=== PATIENT | female | born 1980 | race Caucasian/White ===

== ENCOUNTER 2020-07-29 14:07 | Emergency (ER) | payer MEDICAID, SELFPAY ==
[2020-07-29 14:19] VITALS: BP 113/76; PULSE 88; RESP 18; TEMP 36.7; O2SAT 97; BMI 24.7
[2020-07-29 14:32] VITALS: BP 113/76; PULSE 88; RESP 18; TEMP 36.7; O2SAT 97
--- NOTE | 2020-07-29 14:37 | PC.NURSE ---
RN called [facility] to verify medications. [facility] does not have any medications on record for pt.
--- NOTE | 2020-07-29 14:47 | PC.NURSE ---
Son in w/ pt
--- NOTE | 2020-07-29 14:56 | ED_ITS ---
HPI - Psych General Chief Complaint: Psychiatric Symptoms Stated Complaint: CRISIS Time Seen by Provider: 07/29/20 14:25 Source: EMS Mode of arrival: EMS Limitations: no limitations History of Present Illness HPI Narrative: 40-year-old female with a past medical history of bipolar disease here with erratic behavior. The history is limited from the patient and most of the history is obtained from her son Rm. He tells me the patient has been living in [place] until about 3 days ago when she showed up at his house. Tells me he lives with his sister and his grandmother. His mom showed up to tell him that she was visiting. While her stay over the last 3 days she has had very erratic behavior, hearing voices and talking to herself. She has made homicidal threats towards the grandmother. No suicidal thoughts. He tells me that she has not been taking her medication as she run out. Spoke to patient and she tells me she is here for medication refill. She tells me that she is visiting here from [place] and she realized that her Zyprexa and Depakote were . She called her pharmacy but they would not refill her medications. She is here seeking refills. She denies SI, HI, hallucinations. Denies substance use. No physical complaints. Related Data Home Medications Medication Instructions Recorded Confirmed divalproex [Depakote] 250 mg PO BID 07/29/20 07/29/20 multivitamin 1 tab PO DAILY 07/29/20 07/29/20 olanzapine 10 mg PO DAILY 07/29/20 07/29/20 Allergies Allergy/AdvReac Type Severity Reaction Status Date / Time No Known Allergies Allergy Verified 07/29/20 14:35 [No Known Allergies*] Review of Systems Review of Systems: Yes all other systems are reviewed and are negative Constitutional: Constitutional: Reports no additional constitutional complaints, Denies body ache(s), Denies chills, Denies fever(s), Denies headache(s) and Denies weakness Eyes: Eyes: Reports no additional eye complaints and Denies change in vision ENT: Reports system reviewed and no additional complaints, except as documented, Denies dizziness, Denies headache(s), Denies nasal congestion, Denies nasal discharge and Denies neck pain Cardiovascular: Cardiovascular: Reports no additional cardiovascular complaints, Denies chest pain, Denies leg edema and Denies dyspnea Respiratory: Respiratory: Reports no additional respiratory complaints, Denies cough and Denies dyspnea Gastrointestinal: Gastrointestinal: Reports no additional gastrointestinal complaints, Denies abdominal pain, Denies diarrhea, Denies nausea and Denies vomiting Genitourinary: Genitourinary: Reports no additional female genitourinary complaints and Denies urinary incontinence Musculoskeletal: Musculoskeletal: Reports no additional musculoskeletal complaints, Denies back pain, Denies arthralgias, Denies joint swelling, Denies neck pain, Denies numbness and Denies tingling Integumentary/Breasts: Skin/Breast: Reports system reviewed and no additional complaints, except as docu and Denies rash Neurologic: Reports system reviewed and no additional complaints, except as documented, Denies Abnormal speech present, Denies dizziness, Denies headache(s), Denies numbness, Denies tingling and Denies weakness Psychiatric: Psychiatric: Denies anxiety, Denies depression, Denies hallucinations, Denies homicidal ideation and Denies suicidal ideation PMF Past Medical History Attestation statement: The following information was validated with the patient. Source: old records reviewed and nursing notes reviewed Medical History (Updated 07/29/20 @ 19:28 by Joya Lopez NP) Bipolar 1 disorder Social History Social History Advance Directives: No Advance Directives Information Provided: Yes Physical Exam Vital Signs: Vital Signs: Last Vital Signs Temp 98.8 F 07/29/20 17:50 Pulse 66 07/29/20 17:50 Resp 20 07/29/20 17:50 BP 120/72 07/29/20 17:50 Pulse Ox 97 07/29/20 17:50 Body Mass Index 24.7 Const: General: cooperative, healthy appearing, comfortable and no acute distress Orientation/consciousness: patient oriented x3 Limitations: no limitations HENMT: Head: Yes normal to inspection Ears: hearing grossly normal bilaterally General nose exam: Normal external nose present Face and sinus: Yes normal facial exam Mouth: Normal oral and palatal mucosa present Throat: Yes posterior oropharynx normal Eyes: General: appearance normal, both eyes and all related structures Pupils: Equal, round and reactive pupils present Neck: Neck: Yes normal visual inspection Chest: Chest palpation & inspection: normal inspection of the chest Resp: Effort & Inspection: normal respiratory effort Auscultation: clear to auscultation bilaterally Cardio: Rate: regular rate Rhythm: regular rhythm Peripheral pulses: Peripheral pulses 2+ throughout GI: Inspection: Yes normal to inspection Palpation (GI): Soft to palpation and nontender Auscultation: normal bowel sounds Back/Spine/Pelvis: Thoracic/Lumbar Spine: thoracic and lumbar spine normal to inspection Skin: General skin exam: no rashes or lesions noted Neuro: General: patient oriented x3, no focal motor deficits and normal sensation to monofilament Cranial nerves: Yes Equal, round and reactive pupils present Cognition (Neuro): normal cognition Speech: No Abnormal sp eech present Gait exam (Neuro): Normal gait present Motor exam (neuro): 5/5 motor strength present throughout Extrem: General: Yes normal to inspection Psych: Appearance: disheveled Mental Status: mental status grossly normal Speech and movement: Other speech and movement exam findings present (Psych) ([place]) Affect: normal affect Attitude: cooperative Course Course Course Narrative: 40-year-old female with a past medical history of bipolar disease here with erratic behavior per family, homicidal threats towards family, hearing voices and talking to herself. Patient herself has no complaints and is here seeking medication refill. She tells me that she has been taking Zyprexa and Depakote however realize that her medications are and is here seeking a refill as her physician is in [place] and she is having difficulty refilling her medications. No SI, HI, hallucinations or substance use. No p hysical complaints. Will need labs including Depakote level, drug screen, care team evaluation. No concern for acute ingestion or trauma. 1920-patient seen by care team. Plan to restart patient's medications, observation tonight, reassessment in the morning. Patient is here voluntarily. 2100-sign out to night team pending above. MDM - Psych Medical Records Attestation: I reviewed the patient's medical records. Lab Data Attestation: I reviewed the patient's lab results. Result diagrams: 07/29/20 16:30 07/29/20 16:30 Labs: Lab Results 07/29/20 07/29/20 07/29/20 Range/Units 16:05 16:30 16:30 WBC 10.8 (4.8-10.8) X10*3/uL RBC 4.23 (4.20-5.50) X10*6/uL Hgb 12.6 (12.0-16.0) g/dl Hct 38.2 (37-47) % MCV 90.3 (80-98) fL MCH 29.8 (27.0-33.0) pg MCHC 33.0 (31.0-35.0) g/dl RDW 15.2 (11.0-16.0) % Plt Count 212 (160-400) X10*3/uL MPV 11.6 (9.4-12.3) fL Immature Gran % (Auto) 0.2 (0.0-0.4) % Neut % (Auto) 70.3 (45-73) % Lymph % (Auto) 18.5 L (20-40) % Early % (Auto) 7.6 (2-11) % Eos % (Auto) 3.0 (0-4) % Baso % (Auto) 0.4 (0-2) % Lymph # (Auto) 2.0 (1.2-4.9) X10*3/uL Early # (Auto) 0.8 (0.1-1.2) X10*3/uL Eos # (Auto) 0.3 (0.0-0.4) X10*3/uL Baso # (Auto) 0.0 (0.0-0.2) X10*3/uL Abs Immat Gran (auto) 0.02 (0.00-0.03) X10*3/uL Absolute Neuts (auto) 7.6 (2.0-8.3) X10*3/uL Absolute Nucleated RBC 0.000 (0.0-0.012) X10*3/uL Nucleated RBC % (auto) 0.0 (0.0-0.2) /100WBC Sodium 139 (135-145) mmol/L Potassium 4.1 (3.3-5.1) mmol/L Chloride 105 (96-108) mmol/L Carbon Dioxide 23 (22-29) mmol/L Anion Gap 15 (12-20) BUN 12 (9-16) mg/dL Creatinine 0.76 (0.5-1.4) mg/dL Estim Creat Clear Calc 86.4 Estimated GFR > 60 Random Glucose 81 (60-115) mg/dL Calcium 9.4 (8.4-10.2) mg/dL Total Bilirubin 0.4 (0.0-1.0) mg/dL Direct Bilirubin < 0.2 (0.0-0.5) mg/dL AST 20 (5-31) U/L ALT 22 (0-31) U/L Alkaline Phosphatase 53 (39-117) U/L Total Protein 6.5 (6.5-8.0) g/dL Albumin 4.0 (3.5-5.0) g/dL Salicylates (15-30) mg/dL Urine Opiates Screen Not Detected (Not Detect) Acetaminophen (<30) mcg/mL Ur Barbiturates Screen Not Detected (Not Detect) Valproic Acid 14.9 L (50.0-100.0) mcg/mL Ur Phencyclidine Scrn Not Detected (Not Detect) Ur Amphetamines Screen Not Detected (Not Detect) U Benzodiazepines Scrn Not Detected (Not Detect) Urine Cocaine Screen Not Detected (Not Detect) U Marijuana (THC) Screen POSITIVE H (Not Detect) Ethyl Alcohol mg/dL COVID-19 (CONCEPCION) (Negative) COVID-19 Clin Com 07/29/20 07/29/20 07/29/20 Range/Units 16:30 16:30 16:32 WBC (4.8-10.8) X10*3/uL RBC (4.20-5.50) X10*6/uL Hgb (12.0-16.0) g/dl Hct (37-47) % MCV (80-98) fL MCH (27.0-33.0) pg MCHC (31.0-35.0) g/dl RDW (11.0-16.0) % Plt Count (160-400) X10*3/uL MPV (9.4-12.3) fL Immature Gran % (Auto) (0.0-0.4) % Neut % (Auto) (45-73) % Lymph % (Auto) (20-40) % Early % (Auto) (2-11) % Eos % (Auto) (0-4) % Baso % (Auto) (0-2) % Lymph # (Auto) (1.2-4.9) X10*3/uL Early # (Auto) (0.1-1.2) X10*3/uL Eos # (Auto) (0.0-0.4) X10*3/uL Baso # (Auto) (0.0-0.2) X10*3/uL Abs Immat Gran (auto) (0.00-0.03) X10*3/uL Absolute Neuts (auto) (2.0-8.3) X10*3/uL Absolute Nucleated RBC (0.0-0.012) X10*3/uL Nucleated RBC % (auto) (0.0-0.2) /100WBC Sodium (135-145) mmol/L Potassium (3.3-5.1) mmol/L Chloride (96-108) mmol/L Carbon Dioxide (22-29) mmol/L Anion Gap (12-20) BUN (9-16) mg/dL Creatinine (0.5-1.4) mg/dL Estim Creat Clear Calc Estimated GFR Random Glucose (60-115) mg/dL Calcium (8.4-10.2) mg/dL Total Bilirubin (0.0-1.0) mg/dL Direct Bilirubin (0.0-0.5) mg/dL AST (5-31) U/L ALT (0-31) U/L Alkaline Phosphatase (39-117) U/L Total Protein (6.5-8.0) g/dL Albumin (3.5-5.0) g/dL Salicylates < 5.0 L (15-30) mg/dL Urine Opiates Screen (Not Detect) Acetaminophen < 1 (<30) mcg/mL Ur Barbiturates Screen (Not Detect) Valproic Acid (50.0-100.0) mcg/mL Ur Phencyclidine Scrn (Not Detect) Ur Amphetamines Screen (Not Detect) U Benzodiazepines Scrn (Not Detect) Urine Cocaine Screen (Not Detect) U Marijuana (THC) Screen (Not Detect) Ethyl Alcohol < 10 mg/dL COVID-19 (CONCEPCION) Negative (Negative) COVID-19 Clin Com See Note Discharge Plan Discharge Clinical Impression: Bipolar disorder Prescriptions: No Action multivitamin Tablet 1 tab PO DAILY RF: 0 divalproex [Depakote] 250 mg Tablet,Delayed Release (Dr/Ec) 250 mg PO BID RF: 0 olanzapine 10 mg Tablet 10 mg PO DAILY RF: 0
--- NOTE | 2020-07-29 15:29 | PC.NURSE ---
[facility] called for medication reconciliation
--- NOTE | 2020-07-29 15:48 | PC.NURSE ---
Pt resting in bed at current. No complaints at this time. Calm and cooperative.
[2020-07-29 16:37] LABS: MANUAL DIFF FLAG NO
[2020-07-29 16:40] LABS: Basophils Percent Auto 0.4 % (0-2); Eosinophils Absolute Auto 0.3 X10*3/uL (0.0-0.4); Hematocrit 38.2 % (37-47); Hemoglobin 12.6 g/dl (12.0-16.0); Imm Gran Abs Auto 0.02 X10*3/uL (0.00-0.03); Imm Gran Pct Auto 0.2 % (0.0-0.4); Lymphocytes Percent Auto 18.5 % (20-40); Mean Corpuscular Hemoglobin 29.8 pg (27.0-33.0); Mean Corpuscular Volume 90.3 fL (80-98); Mean Platelet Volume 11.6 fL (9.4-12.3); Monocytes Absolute Auto 0.8 X10*3/uL (0.1-1.2); Monocytes Percent Auto 7.6 % (2-11); Neutrophils Absolute Auto 7.6 X10*3/uL (2.0-8.3); Neutrophils Percent Auto 70.3 % (45-73); Platelet Count 212 X10*3/uL (160-400); Red Blood Count 4.23 X10*6/uL (4.20-5.50); Red Cell Distribution Width 15.2 % (11.0-16.0); White Blood Count 10.8 X10*3/uL (4.8-10.8)
[2020-07-29 16:48] LABS: Amphetamine Screen Urine Not Detected (Not Detect); Barbiturates, Urine Not Detected (Not Detect); Benzodiazepines Screen Urine Not Detected (Not Detect); Cannabinoid Screen Urine POSITIVE (Not Detect); Cocaine Screen Urine Not Detected (Not Detect); Opiate Screen Urine Not Detected (Not Detect); Phencyclidine Screen Urine Not Detected (Not Detect)
[2020-07-29 16:54] LABS: COVID-19 Test Negative (Negative)
[2020-07-29 17:00] LABS: Ethanol < 10 mg/dL
[2020-07-29 17:03] LABS: Alanine Aminotransferase 22 U/L (0-31); Alkaline Phosphatase 53 U/L (39-117); Anion Gap 15 (12-20); Aspartate Amino Transferase 20 U/L (5-31); Bilirubin Direct < 0.2 mg/dL (0.0-0.5); Bilirubin Total 0.4 mg/dL (0.0-1.0); Blood Urea Nitrogen 12 mg/dL (9-16); Calcium 9.4 mg/dL (8.4-10.2); Carbon Dioxide 23 mmol/L (22-29); Chloride 105 mmol/L (96-108); Creatinine Clr Calc Pharmacy 86.4; Estimated Glomerular Filt Rate > 60; Glucose Random 81 mg/dL (60-115); Potassium 4.1 mmol/L (3.3-5.1); Salicylate < 5.0 mg/dL (15-30); Sodium 139 mmol/L (135-145); Total Protein 6.5 g/dL (6.5-8.0)
[2020-07-29 17:04] LABS: Acetaminophen LAB < 1 mcg/mL (<30)
[2020-07-29 17:05] LABS: Valproate 14.9 mcg/mL (50.0-100.0)
[2020-07-29] MEDS: OLANZapine 10 MG TABLET PO (17:27)
--- NOTE | 2020-07-29 17:30 | PC.NURSE ---
Pt having a full on conversation with herself. VALERIE Alva notified. Zyprexa 10 MG PO (see emar). Effect pending.
[2020-07-29 17:50] VITALS: BP 120/72; PULSE 66; RESP 20; TEMP 37.1; O2SAT 97
--- NOTE | 2020-07-29 18:26 | PC.NURSE ---
CARE team meeting with pt at bedside
--- NOTE | 2020-07-29 19:22 | PC.NURSE ---
Patient in bed appears resting quietly, care team just finished assessing the patient, disposition is observation for tonight and discharge in the morning, will continue to monitor.
[2020-07-29] MEDS: Divalproex Sodium 250 MG TABLET.DR PO (20:09)
--- NOTE | 2020-07-30 07:17 | PC.NURSE ---
Report received from MAGDA Miles. Pt resting, resp unlabored.
[2020-07-30] MEDS: OLANZapine 10 MG TABLET PO (09:32)
[2020-07-30] MEDS: Multivitamin TABLET 1 TAB PO (09:32)
[2020-07-30] MEDS: Divalproex Sodium 250 MG TABLET.DR PO (09:33)
--- NOTE | 2020-07-30 09:50 | PC.NURSE ---
Pt awakened, offered breakfast- ate breakfast, but requested to have discharge postponed because she felt dizzy. Discharge paperwork reviewed w/ pt w/ aerial photograph interpreter present- pt states she is safe to be discharged and will be going to her family's house. Pt states that she can walk to the house, it is close by. Orthostatic vital signs reviewed w/ C Cardoza; pt may be discharged as ordered. Pt given fluids to drink. Pt ambulated to bathroom, gait steady, no report of dizziness when ambulating.
--- NOTE | 2020-07-30 09:56 | PC.NURSE ---
VS lying down: 96%; 72; 96/58 Sitting: p81, 94/70 Standing: p96 bp 115/70
[2020-07-30 09:58] VITALS: BP 115/70; PULSE 81; RESP 20; TEMP 36.7; O2SAT 96
== END 2020-07-30 10:00 | disposition home or self-care (01) ==
PROVIDERS: Nurse Practitioner Family; Emergency Provider Emergency Medicine
DX: F31.9 Bipolar disorder, unspecified (principal); R45.850 Homicidal ideations; R79.89 Other specified abnormal findings of blood chemistry; Z20.822 Contact with and (suspected) exposure to COVID-19; Z79.899 Other long term (current) drug therapy
CPT/HCPCS: 36415; 80048; 80076; 80143; 80164; 80179; 80307; 80320; 85025; 87635; 99285

== ENCOUNTER 2020-08-09 09:46 | Emergency (ER) | payer MEDICAID, SELFPAY ==
[2020-08-09 09:57] VITALS: BP 108/68; PULSE 70; RESP 16; TEMP 36.6; O2SAT 99; BMI 31.4
--- NOTE | 2020-08-09 10:25 | ED_ITS ---
HPI - Dental/Oral General Chief complaint: General Medical Stated complaint: dental pain Time Seen by Provider: 08/09/20 10:13 Source: patient Mode of arrival: ambulatory Limitations: no limitations History of Present Illness HPI Narrative: 40-year-old female presenting to the ED with complaints of left lower dental pain where she has a old dental fracture for the past 4-5 days worse today. Patient also requesting refill on her Depakote she reports she takes 250 mg b.i.d.. Denies any SI/HI/auditory visual hallucinations or thoughts of self injury. Reports she is taking Depakote as prescribed and last took it this morning. Denies any additional complaints or concerns at this time. MD Complaint: tooth pain Teeth map: 1. Onset (ago): day(s) (Few days worse today) Duration: worsening Severity: moderate Relieving factors: nothing Exacerbating factors: chewing, cold, heat and drinking fluids Context: history of dental caries, trauma (mechanism) (History of old fractures) and poor dental care Associated symptoms: other (Patient denies any other associated symptoms) Treatment prior to arrival: none Related Data Home Medications Medication Instructions Recorded Confirmed divalproex [Depakote] 250 mg PO BID 07/29/20 07/29/20 multivitamin 1 tab PO DAILY 07/29/20 07/29/20 olanzapine 10 mg PO DAILY 07/29/20 07/29/20 Previous Rx's Medication Instructions Recorded divalproex [Depakote] 250 mg PO BID #60 tab 08/09/20 penicillin V potassium 500 mg PO Q12H 10 Days #20 tab 08/09/20 Allergies Allergy/AdvReac Type Severity Reaction Status Date / Time No Known Allergies Allergy Verified 07/29/20 14:35 [No Known Allergies*] Review of Systems Review of Systems: Constitutional : No Fever, No Chills, No changes in PO intake, No difficulty speaking, no recent dental procedure, no heat or cold intolerance while eating, no recent face trauma, ENT/Mouth : + Dental pain, No Sore throat, No Jaw pain, No throat swelling, No swallowing difficulty, no change in voice, No facial swelling, no drooling, no trismus, no bleeding, no lacerations, no tongue swelling, gum swelling, Eyes: No Eye Pain, No periorbital Swelling Cardiovascular : No Chest Pain, No SOB Respiratory : No Cough, No Sputum, No Wheezing, No Smoke Exposure, No Dyspnea Gastrointestinal : No Nausea, No Vomiting, No Diarrhea Genitourinary : No Dysuria Musculoskeletal : No Myalgias Skin : No rash, no facial swelling or redness, Neuro : No Weakness, No Numbness, No Headache Yes all other systems are reviewed and are negative [facility] Past Medical History Attestation statement: The following information was validated with the patient. Medical History Bipolar 1 disorder Social History Social History Smoked in Last 30 Days: No Use of substances other than those prescribed or required for medical reasons: No Advance Directives: Yes Advance Directives Information Provided: No Advance Directives on File: No Physical Exam Vital Signs: Vital Signs: Last Vital Signs Temp 97.8 F 08/09/20 09:57 Pulse 70 08/09/20 09:57 Resp 16 08/09/20 09:57 BP 108/68 08/09/20 09:57 Pulse Ox 99 08/09/20 09:57 Body Mass Index 31.4 vital signs have been reviewed as normal and appeared to be correct. Blood pressure normal. Heart rate normal. Respiration rate normal. Temperature normal. Oxygen saturation normal. Appearance: Alert. Oriented X3. No acute distress. Head: Normal external exam. Normocephalic. Atraumatic. Eyes: PERRLA. EOMI. Conjunctiva and sclera normal. Eyelids normal. ENT: EAC normal. TM's Normal. Pharynx normal. Uvula midline. Moist mucous membranes. No trismus noted. No drooling noted. No muffled voice noted. Dentition: Patient with poor dentition throughout with multiple old fractured teeth with multiple dental caries. Gingival within normal limits. No fluctuance. Not consistent with peritonsillar abscess. Not consistent with dental abscess. No salivary duct obstruction noted. Neck: Normal inspection. Neck supple. FROM. No adenopathy. Thyroid Normal. No meningeal signs. No neck mass noted. Trachea midline. CVS: Normal heart rate and rhythm. Heart sound normal. No murmurs noted. Pulses normal throughout. Respiratory: No respiratory distress. Painless inspiration. Breath sounds normal. No wheezes/rales/rhonchi noted. Chest nontender. No accessory muscle usage noted or decreased air movement noted. Back: Full range of motion noted. Skin: Skin warm and dry. Normal skin color. Normal skin turgor. No rashes/lesions/lacerations noted. Extremities:Extremities exhibit normal range of motion. Extremities nontender. Neuro: Oriented X 3. No motor deficit. No sensory deficit. Reflexes normal. Course Course Course Narrative: 40-year-old female with a past medical history of bipolar disorder presenting to the ED for dental pain for the past 4 through 5 days worse today. Reports that she can follow up with her own dentist outpatient. Denies any complaints or concerns related to that. Also reports she has a refill on her Depakote she takes 250 mg b.i.d.. Reports she is taking as prescribed. Denies any SI/HI/auditory visualizations thoughts of self-injury. Therefore on exam patient has multiple dental caries/poor dentition and old dental fractures not consistent with peritonsillar abscess/pharyngeal abscess or dental abscess. Patient is tolerating her secretions well. No trismus or drooling noted. Will DC home with antibiotics and symptomatic treatment refill on Depakote and instructions to follow-up with her dentist and to return if any new or worsening symptoms to follow up with primary care provider. Patient understands agrees with this plan. [facility] - Dental/Oral Medical Records Attestation: I reviewed the patient's medical records. Discharge Plan Discharge Clinical Impression: Dental caries, Poor dentition, Medication refill Patient Disposition: Home, Self-Care Instructions: Toothache (ED), Medicine Refill (ED) Prescriptions: New penicillin V potassium 500 mg tablet 500 mg PO Q12H 10 Days Qty: 20 RF: 0 divalproex [Depakote] 250 mg tablet,delayed release (DR/EC) 250 mg PO BID Qty: 60 RF: 0 No Action multivitamin Tablet 1 tab PO DAILY RF: 0 divalproex [Depakote] 250 mg Tablet,Delayed Release (Dr/Ec) 250 mg PO BID RF: 0 olanzapine 10 mg Tablet 10 mg PO DAILY RF: 0 Referrals: Physician,Unknown [Primary Care Provider] - 2 days (your dentist) Print Language: Andorran
== END 2020-08-09 10:43 | disposition home or self-care (01) ==
PROVIDERS: Emergency Provider Emergency Medicine Emergency Medical Services
DX: K02.9 Dental caries, unspecified (principal); K08.89 Other specified disorders of teeth and supporting structures; Z76.0 Encounter for issue of repeat prescription
CPT/HCPCS: 99283

== ENCOUNTER 2020-08-13 04:08 | Emergency (ER) | payer MEDICAID, SELFPAY ==
--- NOTE | ~2020-08-13 | XR_ITS ---
EXAMINATION: XR CHEST CLINICAL INFORMATION: Cough COMPARISON: None TECHNIQUE: Frontal view of the chest was obtained. FINDINGS: Normal symmetric lung volumes. No parenchymal consolidation. No pleural effusion. No pneumothorax. Cardiomediastinal silhouette and pulmonary vascularity are within normal limits. No acute osseous abnormalities. XR/XR chest 1V IMPRESSION: No focal consolidation. Departmental radiographs would be more sensitive in detecting milder degrees of pneumonitis or small infiltrates.
[2020-08-13 04:25] VITALS: BP 127/87; PULSE 66; RESP 18; TEMP 36.6; O2SAT 100; BMI 31.9
[2020-08-13 04:34] VITALS: BP 127/87; PULSE 66; RESP 18; TEMP 36.6; O2SAT 100; BMI 31.9
[2020-08-13 04:43] VITALS: BP 123/76; PULSE 65
--- NOTE | 2020-08-13 04:43 | ECG_ITS ---
Test Reason : DIZZINESS Blood Pressure : / mmHG Vent. Rate : 063 BPM Atrial Rate : 063 BPM P-R Int : 152 ms QRS Dur : 074 ms QT Int : 414 ms P-R-T Axes : 023 043 023 degrees QTc Int : 423 ms Normal sinus rhythm Normal ECG No previous ECGs available Referred By: Chrissy Paulson Electronically Signed By:VALENCIA JALLOH
[2020-08-13 05:11] LABS: MANUAL DIFF FLAG NO
[2020-08-13 05:12] VITALS: BP 121/86; PULSE 72
[2020-08-13 05:12] LABS: Basophils Absolute Auto 0.1 X10*3/uL (0.0-0.2); Basophils Percent Auto 0.5 % (0-2); Eosinophils Absolute Auto 0.5 X10*3/uL (0.0-0.4); Eosinophils Percent Auto 3.2 % (0-4); Hematocrit 36.7 % (37-47); Imm Gran Abs Auto 0.04 X10*3/uL (0.00-0.03); Imm Gran Pct Auto 0.3 % (0.0-0.4); Lymphocytes Absolute Auto 3.6 X10*3/uL (1.2-4.9); Lymphocytes Percent Auto 24.5 % (20-40); Mean Corpuscular HGB Conc 32.7 g/dl (31.0-35.0); Mean Corpuscular Hemoglobin 29.6 pg (27.0-33.0); Mean Corpuscular Volume 90.6 fL (80-98); Mean Platelet Volume 10.5 fL (9.4-12.3); Monocytes Percent Auto 6.9 % (2-11); Neutrophils Absolute Auto 9.6 X10*3/uL (2.0-8.3); Neutrophils Percent Auto 64.6 % (45-73); Platelet Count 245 X10*3/uL (160-400); Red Blood Count 4.05 X10*6/uL (4.20-5.50); Red Cell Distribution Width 15.4 % (11.0-16.0); White Blood Count 14.8 X10*3/uL (4.8-10.8)
[2020-08-13 05:13] VITALS: BP 132/84; PULSE 76
[2020-08-13 05:25] LABS: Glucose, Whole Blood 92 mg/dL (60-115)
[2020-08-13 05:34] LABS: Ethanol < 10 mg/dL
[2020-08-13 05:40] LABS: Glucose Urine UA NEG (NEG); Leukocyte Esterase Urine TRACE (NEG); Nitrite Urine NEG (NEG); UACC Culture Trigger YES; Urine Blood 2+ (NEG); Urine Ketones NEG (NEG); Urine Protein NEG (NEG-TRACE)
[2020-08-13 05:40] LABS: Alanine Aminotransferase 27 U/L (0-31); Albumin Level 4.1 g/dL (3.5-5.0); Alkaline Phosphatase 61 U/L (39-117); Anion Gap 15 (12-20); Aspartate Amino Transferase 25 U/L (5-31); Bilirubin Total < 0.2 mg/dL (0.0-1.0); Blood Urea Nitrogen 14 mg/dL (9-16); Calcium 8.6 mg/dL (8.4-10.2); Carbon Dioxide 23 mmol/L (22-29); Chloride 106 mmol/L (96-108); Creatinine Clr Calc Pharmacy 101.8; Estimated Glomerular Filt Rate > 60; Glucose Random 88 mg/dL (60-115); Magnesium 2.1 mg/dL (1.6-2.6); Potassium 3.9 mmol/L (3.3-5.1); Sodium 140 mmol/L (135-145); Total Protein 6.9 g/dL (6.5-8.0)
[2020-08-13 05:41] LABS: Appearance Urine HAZY; Color Urine YELLOW
[2020-08-13 05:42] LABS: Troponin-I High Sensitivity < 3.5 ng/L (<3.5-17.0)
--- NOTE | 2020-08-13 05:47 | ED_ITS ---
HPI - Dizziness General Chief Complaint: Dizziness Stated Complaint: dizziness with ambulation Time Seen by Provider: 08/13/20 04:43 Source: patient Mode of arrival: EMS History of Present Illness HPI Narrative: This is a 40-year-old female who comes in via EMS after she called for dizziness wall walking. Patient otherwise denies fevers, chills, chest pain/palpitations, nausea, vomiting, abdominal discomfort, or diarrhea. However, she does describe some urinary burning. She endorses that she does use cocaine but last use yesterday. Related Data Home Medications Medication Instructions Recorded Confirmed divalproex [Depakote] 250 mg PO BID 07/29/20 07/29/20 multivitamin 1 tab PO DAILY 07/29/20 07/29/20 olanzapine 10 mg PO DAILY 07/29/20 07/29/20 Previous Rx's Medication Instructions Recorded divalproex [Depakote] 250 mg PO BID #60 tab 08/09/20 penicillin V potassium 500 mg PO Q12H 10 Days #20 tab 08/09/20 ciprofloxacin HCl [Cipro] 500 mg PO Q12H 7 Days #14 tab 08/13/20 Allergies Allergy/AdvReac Type Severity Reaction Status Date / Time No Known Allergies Allergy Verified 07/29/20 14:35 [No Known Allergies*] Review of Systems Review of Systems: Pertinent positives and negatives as stated in HPI 10 point review of systems is otherwise negative. PMFSH Past Medical History Source: nursing notes reviewed Medical History Bipolar 1 disorder Social History Social History Advance Directives: No Physical Exam Vital Signs: Vital Signs: Last Vital Signs Temp 97.8 F 08/13/20 04:34 Pulse 81 08/13/20 06:18 Resp 20 08/13/20 06:18 BP 114/65 08/13/20 06:18 Pulse Ox 99 08/13/20 06:18 Body Mass Index 31.9 VITAL SIGNS: Reviewed. GENERAL: Well developed, well nourished, in no acute distress. HEAD: Normocephalic/atraumatic NOSE: Nares patent bilateral OROPHARYNX: no oral lesions noted, posterior pharynx clear NECK: Supple, no adenopathy LUNGS: Normal breath sounds. No adventitious sounds or accessory muscle use. SpO2<99> CARDIOVASCULAR: Regular rate and rhythm without noted murmurs ABDOMEN: Soft, non-tender, non-distended with bowel sounds. NEUROLOGIC: Alert and oriented x 4, no facial asymmetry, no pronator drift, cranial nerves 2-12 are grossly intact, cerebellar testing is within normal limits. Course Course Course Narrative: This is a 40-year-old female with history and clinical presentation suggestive of possible substance use related dizziness but will rule out infection/anemia, arrhythmia. On review of all investigations there is a mild leukocytosis however this is not in conjunction with a left shift, but UA is positive for white blood cells and trace leukocyte esterase. Patient was given initial antibiotics here in the emergency department and then discharged with remaining script. On re- evaluation patient states that she is feeling better. [facility] - Dizziness Lab Data Result diagrams: 08/13/20 05:05 08/13/20 05:05 Labs: Lab Results 08/13/20 08/13/20 08/13/20 Range/Units 04:53 05:05 05:05 WBC 14.8 H (4.8-10.8) X10*3/uL RBC 4.05 L (4.20-5.50) X10*6/uL Hgb 12.0 (12.0-16.0) g/dl Hct 36.7 L (37-47) % MCV 90.6 (80-98) fL MCH 29.6 (27.0-33.0) pg MCHC 32.7 (31.0-35.0) g/dl RDW 15.4 (11.0-16.0) % Plt Count 245 (160-400) X10*3/uL MPV 10.5 (9.4-12.3) fL Immature Gran % (Auto) 0.3 (0.0-0.4) % Neut % (Auto) 64.6 (45-73) % Lymph % (Auto) 24.5 (20-40) % Hardy % (Auto) 6.9 (2-11) % Eos % (Auto) 3.2 (0-4) % Baso % (Auto) 0.5 (0-2) % Lymph # (Auto) 3.6 (1.2-4.9) X10*3/uL Hardy # (Auto) 1.0 (0.1-1.2) X10*3/uL Eos # (Auto) 0.5 H (0.0-0.4) X10*3/uL Baso # (Auto) 0.1 (0.0-0.2) X10*3/uL Abs Immat Gran (auto) 0.04 H (0.00-0.03) X10*3/uL Absolute Neuts (auto) 9.6 H (2.0-8.3) X10*3/uL Absolute Nucleated RBC 0.000 (0.0-0.012) X10*3/uL Nucleated RBC % (auto) 0.0 (0.0-0.2) /100WBC Hold Blue Top Sodium 140 (135-145) mmol/L Potassium 3.9 (3.3-5.1) mmol/L Chloride 106 (96-108) mmol/L Carbon Dioxide 23 (22-29) mmol/L Anion Gap 15 (12-20) BUN 14 (9-16) mg/dL Creatinine 0.73 (0.5-1.4) mg/dL Estim Creat Clear Calc 101.8 Estimated GFR > 60 POC Glucose 92 (60-115) mg/dL Random Glucose 88 (60-115) mg/dL Calcium 8.6 D (8.4-10.2) mg/dL Magnesium 2.1 (1.6-2.6) mg/dL Total Bilirubin < 0.2 (0.0-1.0) mg/dL AST 25 (5-31) U/L ALT 27 (0-31) U/L Alkaline Phosphatase 61 (39-117) U/L Troponin I High Sens (<3.5-17.0) ng/L Total Protein 6.9 (6.5-8.0) g/dL Albumin 4.1 (3.5-5.0) g/dL Urine Color Urine Appearance Urine pH (5.0-8.0) Ur Specific [place] (1.005-1.025) Urine Protein (NEG-TRACE) MG/DL Urine Glucose (UA) (NEG) MG/DL Urine Ketones (NEG) MG/DL Urine Blood (NEG) Urine Nitrite (NEG) Ur Leukocyte Esterase (NEG) Urine RBC (0) /HPF Urine WBC (0-4) /HPF Ur Squamous Epith Cells /LPF Urine Bacteria /LPF Urine Mucus /LPF Urine Test (NEGATIVE) Urine Opiates Screen (Not Detect) Ur Barbiturates Screen (Not Detect) Ur Phencyclidine Scrn (Not Detect) Ur Amphetamines Screen (Not Detect) U Benzodiazepines Scrn (Not Detect) Urine Cocaine Screen (Not Detect) U Marijuana (THC) Screen (Not Detect) Ethyl Alcohol mg/dL 08/13/20 08/13/20 08/13/20 Range/Units 05:05 05:05 05:05 WBC (4.8-10.8) X10*3/uL RBC (4.20-5.50) X10*6/uL Hgb (12.0-16.0) g/dl Hct (37-47) % MCV (80-98) fL MCH (27.0-33.0) pg MCHC (31.0-35.0) g/dl RDW (11.0-16.0) % Plt Count (160-400) X10*3/uL MPV (9.4-12.3) fL Immature Gran % (Auto) (0.0-0.4) % Neut % (Auto) (45-73) % Lymph % (Auto) (20-40) % Hardy % (Auto) (2-11) % Eos % (Auto) (0-4) % Baso % (Auto) (0-2) % Lymph # (Auto) (1.2-4.9) X10*3/uL Hardy # (Auto) (0.1-1.2) X10*3/uL Eos # (Auto) (0.0-0.4) X10*3/uL Baso # (Auto) (0.0-0.2) X10*3/uL Abs Immat Gran (auto) (0.00-0.03) X10*3/uL Absolute Neuts (auto) (2.0-8.3) X10*3/uL Absolute Nucleated RBC (0.0-0.012) X10*3/uL Nucleated RBC % (auto) (0.0-0.2) /100WBC Hold Blue Top SEE NOTE Sodium (135-145) mmol/L Potassium (3.3-5.1) mmol/L Chloride (96-108) mmol/L Carbon Dioxide (22-29) mmol/L Anion Gap (12-20) BUN (9-16) mg/dL Creatinine (0.5-1.4) mg/dL Estim Creat Clear Calc Estimated GFR POC Glucose (60-115) mg/dL Random Glucose (60-115) mg/dL Calcium (8.4-10.2) mg/dL Magnesium (1.6-2.6) mg/dL Total Bilirubin (0.0-1.0) mg/dL AST (5-31) U/L ALT (0-31) U/L Alkaline Phosphatase (39-117) U/L Troponin I High Sens < 3.5 (<3.5-17.0) ng/L Total Protein (6.5-8.0) g/dL Albumin (3.5-5.0) g/dL Urine Color Urine Appearance Urine pH (5.0-8.0) Ur Specific [place] (1.005-1.025) Urine Protein (NEG-TRACE) MG/DL Urine Glucose (UA) (NEG) MG/DL Urine Ketones (NEG) MG/DL Urine Blood (NEG) Urine Nitrite (NEG) Ur Leukocyte Esterase (NEG) Urine RBC (0) /HPF Urine WBC (0-4) /HPF Ur Squamous Epith Cells /LPF Urine Bacteria /LPF Urine Mucus /LPF Urine Test (NEGATIVE) Urine Opiates Screen (Not Detect) Ur Barbiturates Screen (Not Detect) Ur Phencyclidine Scrn (Not Detect) Ur Amphetamines Screen (Not Detect) U Benzodiazepines Scrn (Not Detect) Urine Cocaine Screen (Not Detect) U Marijuana (THC) Screen (Not Detect) Ethyl Alcohol < 10 mg/dL 08/13/20 08/13/20 08/13/20 Range/Units 05:20 05:20 05:20 WBC (4.8-10.8) X10*3/uL RBC (4.20-5.50) X10*6/uL Hgb (12.0-16.0) g/dl Hct (37-47) % MCV (80-98) fL MCH (27.0-33.0) pg MCHC (31.0-35.0) g/dl RDW (11.0-16.0) % Plt Count (160-400) X10*3/uL MPV (9.4-12.3) fL Immature Gran % (Auto) (0.0-0.4) % Neut % (Auto) (45-73) % Lymph % (Auto) (20-40) % Hardy % (Auto) (2-11) % Eos % (Auto) (0-4) % Baso % (Auto) (0-2) % Lymph # (Auto) (1.2-4.9) X10*3/uL Hardy # (Auto) (0.1-1.2) X10*3/uL Eos # (Auto) (0.0-0.4) X10*3/uL Baso # (Auto) (0.0-0.2) X10*3/uL Abs Immat Gran (auto) (0.00-0.03) X10*3/uL Absolute Neuts (auto) (2.0-8.3) X10*3/uL Absolute Nucleated RBC (0.0-0.012) X10*3/uL Nucleated RBC % (auto) (0.0-0.2) /100WBC Hold Blue Top Sodium (135-145) mmol/L Potassium (3.3-5.1) mmol/L Chloride (96-108) mmol/L Carbon Dioxide (22-29) mmol/L Anion Gap (12-20) BUN (9-16) mg/dL Creatinine (0.5-1.4) mg/dL Estim Creat Clear Calc Estimated GFR POC Glucose (60-115) mg/dL Random Glucose (60-115) mg/dL Calcium (8.4-10.2) mg/dL Magnesium (1.6-2.6) mg/dL Total Bilirubin (0.0-1.0) mg/dL AST (5-31) U/L ALT (0-31) U/L Alkaline Phosphatase (39-117) U/L Troponin I High Sens (<3.5-17.0) ng/L Total Protein (6.5-8.0) g/dL Albumin (3.5-5.0) g/dL Urine Color YELLOW Urine Appearance HAZY Urine pH 6.0 (5.0-8.0) Ur Specific [place] 1.020 (1.005-1.025) Urine Protein NEG (NEG-TRACE) MG/DL Urine Glucose (UA) NEG (NEG) MG/DL Urine Ketones NEG (NEG) MG/DL Urine Blood 2+ H (NEG) Urine Nitrite NEG (NEG) Ur Leukocyte Esterase TRACE H (NEG) Urine RBC 1-4 (0) /HPF Urine WBC 5-9 H (0-4) /HPF Ur Squamous Epith Cells 2+ /LPF Urine Bacteria TRACE /LPF Urine Mucus 1+ /LPF Urine Test NEGATIVE (NEGATIVE) Urine Opiates Screen Not Detected (Not Detect) Ur Barbiturates Screen Not Detected (Not Detect) Ur Phencyclidine Scrn Not Detected (Not Detect) Ur Amphetamines Screen Not Detected (Not Detect) U Benzodiazepines Scrn Not Detected (Not Detect) Urine Cocaine Screen POSITIVE H (Not Detect) U Marijuana (THC) Screen POSITIVE H (Not Detect) Ethyl Alcohol mg/dL ECG Data Attestation: I personally reviewed and interpreted this ECG as follows: Prior ECG tracings: not available for review Interpretation: Normal sinus rhythm, HR-63, no evidence of acute ischemia, CO/QRS/QTC are within normal limits. Discharge Plan Discharge Clinical Impression: UTI (urinary tract infection), Dizziness Patient Disposition: Home, Self-Care Instructions: Urinary Tract Infection in Women (ED) Additional Instructions: Continue stay well hydrated especially with water. Complete the entire course of antibiotics. Do not hesitate to return to the emergency department should you develop any acute worsening of your symptoms. Prescriptions: New ciprofloxacin HCl [Cipro] 500 mg tablet 500 mg PO Q12H 7 Days Qty: 14 RF: 0 No Action multivitamin Tablet 1 tab PO DAILY RF: 0 divalproex [Depakote] 250 mg Tablet,Delayed Release (Dr/Ec) 250 mg PO BID RF: 0 olanzapine 10 mg Tablet 10 mg PO DAILY RF: 0 penicillin V potassium 500 mg tablet 500 mg PO Q12H 10 Days Qty: 20 RF: 0 divalproex [Depakote] 250 mg tablet,delayed release (DR/EC) 250 mg PO BID Qty: 60 RF: 0 Referrals: Physician,Unknown [Primary Care Provider] - 2 days
[2020-08-13 05:59] LABS: Amphetamine Screen Urine Not Detected (Not Detect); Barbiturates, Urine Not Detected (Not Detect); Benzodiazepines Screen Urine Not Detected (Not Detect); Cannabinoid Screen Urine POSITIVE (Not Detect); Cocaine Screen Urine POSITIVE (Not Detect); Opiate Screen Urine Not Detected (Not Detect); Phencyclidine Screen Urine Not Detected (Not Detect)
[2020-08-13 06:03] LABS: Bacteria Urine TRACE /LPF; Mucus Urine 1+ /LPF; Squamous Epithelial Cell Urine 2+ /LPF
[2020-08-13 06:04] LABS: UPreg QC Valid YES; Urine Pregnancy NEGATIVE (NEGATIVE)
[2020-08-13 06:18] VITALS: BP 114/65; PULSE 81; RESP 20; O2SAT 99
[2020-08-13] MEDS: levoFLOXacin 500 MG TABLET PO (08:12)
== END 2020-08-13 09:20 | disposition home or self-care (01) ==
PROVIDERS: Emergency Provider Student in an Organized Health Care Education/Training Program
DX: R42 Dizziness and giddiness (principal); N39.0 Urinary tract infection, site not specified; F14.90 Cocaine use, unspecified, uncomplicated; F12.90 Cannabis use, unspecified, uncomplicated
CPT/HCPCS: 36415; 71045; 80053; 80307; 80320; 81001; 81003; 81025; 82947; 83735; 84484; 85025; 87086; 93005; 99284

== ENCOUNTER 2020-09-08 02:08 | Emergency (ER) | payer MEDICAID, SELFPAY ==
[2020-09-08 02:30] VITALS: BP 108/65; BP 120/80; PULSE 76; PULSE 82; RESP 16; TEMP 36.3; O2SAT 97; BMI 31.1
--- NOTE | 2020-09-08 04:02 | ED.GENADULT ---
HPI - General Adult General Chief complaint: General Medical Stated complaint: nausea vomiting Time Seen by Provider: 09/08/20 02:55 Source: patient Mode of arrival: EMS History of Present Illness HPI narrative: This is a 30-year-old female brought in by EMS after she was reportedly dizzy although EMS reports patient was noted to have a steady gait. Patient states she has been drinking some alcohol but denies drug use. Otherwise, she has no other acute complaints aside from requesting food and something to drink I she is homeless and has not had anything to eat. Related Data Allergies Allergy/AdvReac Type Severity Reaction Status Date / Time No Known Allergies Allergy Verified 09/08/20 02:29 Review of Systems Review of Systems: Pertinent positives and negatives as stated in HPI and 10 point review systems is otherwise negative. [facility] Past Medical History Attestation statement: The following information was validated with the patient. Source: nursing notes reviewed Social History Social History Advance Directives: No Advance Directives Information Provided: No Patient : No Physical Exam Vital Signs: Vital Signs: Last Vital Signs Temp 97.4 F 09/08/20 02:30 Pulse 76 09/08/20 02:30 Resp 16 09/08/20 02:30 BP 108/65 09/08/20 02:30 Pulse Ox 97 09/08/20 02:30 Body Mass Index 31.1 VITAL SIGNS: Reviewed. GENERAL: Well developed, well nourished, in no acute distress. HEAD: Normocephalic/atraumatic EYES: PERRLA, EOMI OROPHARYNX: no oral lesions noted, posterior pharynx clear NECK: Supple, no adenopathy LUNGS: Normal breath sounds. No adventitious sounds or accessory muscle use. SpO2<97> CARDIOVASCULAR: Regular rate and rhythm without noted murmurs ABDOMEN: Soft, non-tender, non-distended with bowel sounds. NEUROLOGIC: Alert and oriented x 4. Course Course Course Narrative: This is a 30-year-old female with history and clinical presentation consistent with dizziness due to alcohol intoxication. Patient stated she was feeling much better and was discharged. Discharge Plan Discharge Clinical Impression: Alcohol intoxication Patient Disposition: Home, Self-Care Instructions: Alcohol Intoxication (ED) Additional Instructions: Return to the emergency room if you have any acute worsening of your symptoms. Interventions: ED Discharge Assessment Last Done: 09/08/20 09:06 Discharge Date/Time: 09/08/20 09:07
== END 2020-09-08 09:07 | disposition home or self-care (01) ==
LOC: HO.ED 06:54
PROVIDERS: Emergency Provider Student in an Organized Health Care Education/Training Program
DX: R42 Dizziness and giddiness (principal); F10.129 Alcohol abuse with intoxication, unspecified; Y90.9 Presence of alcohol in blood, level not specified
CPT/HCPCS: 96374; 99283

== ENCOUNTER 2020-09-14 11:44 | Emergency (ER) | payer MEDICAID, SELFPAY ==
--- NOTE | ~2020-09-14 | XR_ITS ---
EXAMINATION: XR CHEST CLINICAL INFORMATION: Dizziness. COMPARISON: None TECHNIQUE: Frontal view of the chest was obtained. FINDINGS: No significant abnormality is noted involving the heart, lungs, mediastinum, bony thorax or soft tissues. XR/XR chest 1V IMPRESSION: Unremarkable chest exam
[2020-09-14 11:49] VITALS: BP 124/67; PULSE 74; RESP 16; TEMP 36.2; O2SAT 98; BMI 27.4
--- NOTE | 2020-09-14 13:26 | ECG_ITS ---
Test Reason : DIZZINESS Blood Pressure : / mmHG Vent. Rate : 068 BPM Atrial Rate : 068 BPM P-R Int : 152 ms QRS Dur : 082 ms QT Int : 384 ms P-R-T Axes : 014 010 005 degrees QTc Int : 408 ms Normal sinus rhythm Voltage criteria for left ventricular hypertrophy Abnormal ECG When compared with ECG of 13-AUG-2020 05:07, No significant change was found Referred By: Marisol Aguilera Electronically Signed By:JUANPABLO MUNOZ MD
--- NOTE | 2020-09-14 13:30 | ED_ITS ---
HPI - General Adult General Chief complaint: General Medical Stated complaint: dental pain Time Seen by Provider: 09/14/20 13:06 Source: patient Mode of arrival: ambulatory History of Present Illness HPI narrative: 40-year-old female with past medical history bipolar presenting to the ED complaining dental pain x weeks, dysuria with recent UTI diagnosed on 08/13/20 noncompliant with antibiotics, & requesting refills of her Zyprexa and Depakote which she has not taken x1 month. Also reports 2 episodes of room spinning dizziness only upon waking, denies dizziness at present. Additionally, requesting referral for OBGYN to have her IUD removed. Reports mild lower abdominal discomfort. Denies fever, chills, nausea/vomiting/diarrhea/con stipation, hematuria, vaginal bleeding or discharge, headache, weakness, headache Onset (ago): day(s) Related Data Home Medications Medication Instructions Recorded Confirmed divalproex [Depakote] 250 mg PO BID 07/29/20 07/29/20 multivitamin 1 tab PO DAILY 07/29/20 07/29/20 olanzapine 10 mg PO DAILY 07/29/20 07/29/20 Previous Rx's Medication Instructions Recorded divalproex [Depakote] 250 mg PO BID #60 tab 08/09/20 penicillin V potassium 500 mg PO Q12H 10 Days #20 tab 08/09/20 ciprofloxacin HCl [Cipro] 500 mg PO Q12H 7 Days #14 tab 08/13/20 ciprofloxacin HCl [Cipro] 500 mg PO BID 14 Days #28 tab 08/19/20 divalproex [Depakote] 250 mg PO BID #60 tab 08/19/20 penicillin V potassium 500 mg PO Q12H 10 Days #20 tab 08/19/20 amoxicillin-pot clavulanate 1 tab PO Q12H 7 Days #14 tab 09/14/20 [Augmentin] divalproex [Depakote] 250 mg PO BID 30 Days #60 tab 09/14/20 phenazopyridine [Pyridium] 200 mg PO TID PRN #10 tab 09/14/20 Allergies Allergy/AdvReac Type Severity Reaction Status Date / Time No Known Allergies Allergy Verified 07/29/20 14:35 [No Known Allergies*] Review of Systems Review of Systems: Constitutional: No Fever, No Chills Cardiovascular: No Chest Pain, No SOB, No Dyspnea on Exertion Respiratory: No Cough, No Dyspnea Gastrointestinal: No Nausea, No Vomiting, No Diarrhea, No Constipation, +Abdominal pain Genitourinary: No irregular bleeding, + Dysuria, No Urinary Frequency, No Hematuria, No Urgency, No Flank Pain Musculoskeletal: No joint pain, No Myalgias, No Joint Swelling Skin: No Skin Lesions, No rash Neuro: No Weakness, No Numbness, No Paresthesias, +Dizziness (intermittent- resolved), No headache Yes all other systems are reviewed and are negative Neurologic: Denies Abnormal speech present [facility] Past Medical History Attestation statement: The following information was validated with the patient. Medical History Bipolar 1 disorder Social History Social History Advance Directives: No Advance Directives Information Provided: No Patient : No Physical Exam Vital Signs: Vital Signs: Last Vital Signs Temp 97.1 F 09/14/20 11:49 Pulse 63 09/14/20 14:13 Resp 16 09/14/20 11:49 BP 129/80 09/14/20 14:13 Pulse Ox 98 09/14/20 11:49 Body Mass Index 27.4 Const: General: cooperative, healthy appearing and comfortable Orientation/consciousness: patient oriented x3 Limitations: no limitations HENMT: Other: Left lower 2nd molar cracked with mild tenderness to palpation. No surrounding cellulitis/erythema/gingivitis fluctuance or induration Head: Yes normal to inspection and Yes atraumatic Ears: hearing grossly normal bilaterally General nose exam: Normal external nose present Face and sinus: Yes normal facial exam Mouth: Normal oral and palatal mucosa present Throat: Yes posterior oropharynx normal and Yes uvula midline Eyes: General: appearance normal, both eyes and all related structures Pupils: Equal, round and reactive pupils present EOM: EOMs intact bilaterally Neck: Neck: Yes normal visual inspection and Yes no meningeal signs Chest: Chest palpation & inspection: normal inspection of the chest Resp: Effort & Inspection: normal respiratory effort Auscultation: clear to auscultation bilaterally, no rales, no rhonchi and no wheezes Cardio: Rate: regular rate Heart sounds: S1 normal heart sound present and S2 normal heart sound present GI: Inspection: Yes normal to inspection Palpation (GI): Soft to palpation, nontender, no guarding and not rigid : General: Yes no CVA tenderness Back/Spine/Pelvis: Back: no CVA tenderness Skin: Rashes: no rashes Wounds: no wounds Neuro: General: patient oriented x3, gait normal, tone normal, moves all extremities, no meningeal signs, no focal motor deficits and CN's II-XI intact bilaterally Cranial nerves: Yes CN's II-XII intact bilaterally and Yes Equal, round and reactive pupils present Cognition (Neuro): normal cognition Speech: No Abnormal speech present Gait exam (Neuro): Normal gait present Motor exam (neuro): 5/5 motor strength present throughout, Pronator motor function not present and no tremor noted Coordination: [id number] test normal Extrem: General: Yes normal to inspection Course Course Course Narrative: -1506-- No leukocytosis, labs otherwise unremarkable, troponin negative -UA with 2+ blood, not infected, negative, Depakote level low XR chest 1V IMPRESSION: Unremarkable chest exam -orthostatic vital signs negative >> results discussed with patient including worrisome signs and symptoms and strict return precautions. She verbalized understanding feel safe for discharge home Medical Decision Making MDM Narrative Medical decision making narrative: 40-year-old female with past medical history bipolar presenting to the ED complaining dental pain x weeks, dysuria with recent UTI noncompliant with antibiotics. Also reports 2 episodes of room spinning dizziness upon waking. On exam VSS, NAD/well-appearing, no focal neuro deficits, abdomen soft/nontender, broken tooth noted on exam without active cellulitis or abscess. Concern for UTI vs dehydration vs metabolic abnorm alities or BPPV and dental infection. Low concern for intra-abdominal infection including diverticulitis/appendicitis/renal stone/pyelo or meningitis/encephalitis/ICH/CVA Pain: EKG, labs, UA, CXR, IVF, Sx Tx, reassess Lab Data Result diagrams: 09/14/20 13:56 09/14/20 13:56 Labs: Lab Results 09/14/20 09/14/20 09/14/20 Range/Units 13:56 13:56 13:56 WBC 8.7 (4.8-10.8) X10*3/uL RBC 4.34 (4.20-5.50) X10*6/uL Hgb 13.0 (12.0-16.0) g/dl Hct 39.3 (37-47) % MCV 90.6 (80-98) fL MCH 30.0 (27.0-33.0) pg MCHC 33.1 (31.0-35.0) g/dl RDW 14.3 (11.0-16.0) % Plt Count 232 (160-400) X10*3/uL MPV 11.5 (9.4-12.3) fL Immature Gran % (Auto) 0.3 (0.0-0.4) % Neut % (Auto) 53.8 (45-73) % Lymph % (Auto) 31.3 (20-40) % [place] % (Auto) 9.1 (2-11) % Eos % (Auto) 4.9 H (0-4) % Baso % (Auto) 0.6 (0-2) % Lymph # (Auto) 2.7 (1.2-4.9) X10*3/uL [place] # (Auto) 0.8 (0.1-1.2) X10*3/uL Eos # (Auto) 0.4 (0.0-0.4) X10*3/uL Baso # (Auto) 0.1 (0.0-0.2) X10*3/uL Abs Immat Gran (auto) 0.03 (0.00-0.03) X10*3/uL Absolute Neuts (auto) 4.7 (2.0-8.3) X10*3/uL Absolute Nucleated RBC 0.000 (0.0-0.012) X10*3/uL Nucleated RBC % (auto) 0.0 (0.0-0.2) /100WBC Hold Blue Top SEE NOTE Sodium 136 (135-145) mmol/L Potassium 4.4 (3.3-5.1) mmol/L Chloride 103 (96-108) mmol/L Carbon Dioxide 22 (22-29) mmol/L Anion Gap 15 (12-20) BUN 14 (9-16) mg/dL Creatinine 0.73 (0.5-1.4) mg/dL Estim Creat Clear Calc 94.4 Estimated GFR > 60 Random Glucose 83 (60-115) mg/dL Calcium 9.3 D (8.4-10.2) mg/dL Magnesium 1.9 (1.6-2.6) mg/dL Total Bilirubin 0.3 (0.0-1.0) mg/dL Direct Bilirubin < 0.2 (0.0-0.5) mg/dL AST 25 (5-31) U/L ALT 27 (0-31) U/L Alkaline Phosphatase 56 (39-117) U/L Troponin I High Sens (<3.5-17.0) ng/L Total Protein 7.4 (6.5-8.0) g/dL Albumin 4.3 (3.5-5.0) g/dL Lipase 24 (8-78) U/L Urine Color Urine Appearance Urine pH (5.0-8.0) Ur Specific [place] (1.005-1.025) Urine Protein (NEG-TRACE) MG/DL Urine Glucose (UA) (NEG) MG/DL Urine Ketones (NEG) MG/DL Urine Blood (NEG) Urine Nitrite (NEG) Ur Leukocyte Esterase (NEG) Urine RBC (0) /HPF Urine WBC (0-4) /HPF Ur Squamous Epith Cells /LPF Urine Bacteria /LPF Urine Mucus /LPF Urine Test (NEGATIVE) Valproic Acid (50.0-100.0) mcg/mL 09/14/20 09/14/20 09/14/20 Range/Units 13:56 13:56 13:56 WBC (4.8-10.8) X10*3/uL RBC (4.20-5.50) X10*6/uL Hgb (12.0-16.0) g/dl Hct (37-47) % MCV (80-98) fL MCH (27.0-33.0) pg MCHC (31.0-35.0) g/dl RDW (11.0-16.0) % Plt Count (160-400) X10*3/uL MPV (9.4-12.3) fL Immature Gran % (Auto) (0.0-0.4) % Neut % (Auto) (45-73) % Lymph % (Auto) (20-40) % [place] % (Auto) (2-11) % Eos % (Auto) (0-4) % Baso % (Auto) (0-2) % Lymph # (Auto) (1.2-4.9) X10*3/uL [place] # (Auto) (0.1-1.2) X10*3/uL Eos # (Auto) (0.0-0.4) X10*3/uL Baso # (Auto) (0.0-0.2) X10*3/uL Abs Immat Gran (auto) (0.00-0.03) X10*3/uL Absolute Neuts (auto) (2.0-8.3) X10*3/uL Absolute Nucleated RBC (0.0-0.012) X10*3/uL Nucleated RBC % (auto) (0.0-0.2) /100WBC Hold Blue Top Sodium (135-145) mmol/L Potassium (3.3-5.1) mmol/L Chloride (96-108) mmol/L Carbon Dioxide (22-29) mmol/L Anion Gap (12-20) BUN (9-16) mg/dL Creatinine (0.5-1.4) mg/dL Estim Creat Clear Calc Estimated GFR Random Glucose (60-115) mg/dL Calcium (8.4-10.2) mg/dL Magnesium (1.6-2.6) mg/dL Total Bilirubin (0.0-1.0) mg/dL Direct Bilirubin (0.0-0.5) mg/dL AST (5-31) U/L ALT (0-31) U/L Alkaline Phosphatase (39-117) U/L Troponin I High Sens < 3.5 (<3.5-17.0) ng/L Total Protein (6.5-8.0) g/dL Albumin (3.5-5.0) g/dL Lipase (8-78) U/L Urine Color YELLOW Urine Appearance CLOUDY Urine pH 6.0 (5.0-8.0) Ur Specific [place] 1.025 (1.005-1.025) Urine Protein NEG (NEG-TRACE) MG/DL Urine Glucose (UA) NEG (NEG) MG/DL Urine Ketones NEG (NEG) MG/DL Urine Blood 2+ H (NEG) Urine Nitrite NEG (NEG) Ur Leukocyte Esterase NEG (NEG) Urine RBC 1-4 (0) /HPF Urine WBC 1-4 (0-4) /HPF Ur Squamous Epith Cells 2+ /LPF Urine Bacteria 1+ /LPF Urine Mucus 2+ /LPF Urine Test (NEGATIVE) Valproic Acid < 2.0 L (50.0-100.0) mcg/mL 09/14/20 Range/Units 13:56 WBC (4.8-10.8) X10*3/uL RBC (4.20-5.50) X10*6/uL Hgb (12.0-16.0) g/dl Hct (37-47) % MCV (80-98) fL MCH (27.0-33.0) pg MCHC (31.0-35.0) g/dl RDW (11.0-16.0) % Plt Count (160-400) X10*3/uL MPV (9.4-12.3) fL Immature Gran % (Auto) (0.0-0.4) % Neut % (Auto) (45-73) % Lymph % (Auto) (20-40) % [place] % (Auto) (2-11) % Eos % (Auto) (0-4) % Baso % (Auto) (0-2) % Lymph # (Auto) (1.2-4.9) X10*3/uL [place] # (Auto) (0.1-1.2) X10*3/uL Eos # (Auto) (0.0-0.4) X10*3/uL Baso # (Auto) (0.0-0.2) X10*3/uL Abs Immat Gran (auto) (0.00-0.03) X10*3/uL Absolute Neuts (auto) (2.0-8.3) X10*3/uL Absolute Nucleated RBC (0.0-0.012) X10*3/uL Nucleated RBC % (auto) (0.0-0.2) /100WBC Hold Blue Top Sodium (135-145) mmol/L Potassium (3.3-5.1) mmol/L Chloride (96-108) mmol/L Carbon Dioxide (22-29) mmol/L Anion Gap (12-20) BUN (9-16) mg/dL Creatinine (0.5-1.4) mg/dL Estim Creat Clear Calc Estimated GFR Random Glucose (60-115) mg/dL Calcium (8.4-10.2) mg/dL Magnesium (1.6-2.6) mg/dL Total Bilirubin (0.0-1.0) mg/dL Direct Bilirubin (0.0-0.5) mg/dL AST (5-31) U/L ALT (0-31) U/L Alkaline Phosphatase (39-117) U/L Troponin I High Sens (<3.5-17.0) ng/L Total Protein (6.5-8.0) g/dL Albumin (3.5-5.0) g/dL Lipase (8-78) U/L Urine Color Urine Appearance Urine pH (5.0-8.0) Ur Specific [place] (1.005-1.025) Urine Protein (NEG-TRACE) MG/DL Urine Glucose (UA) (NEG) MG/DL Urine Ketones (NEG) MG/DL Urine Blood (NEG) Urine Nitrite (NEG) Ur Leukocyte Esterase (NEG) Urine RBC (0) /HPF Urine WBC (0-4) /HPF Ur Squamous Epith Cells /LPF Urine Bacteria /LPF Urine Mucus /LPF Urine Test NEGATIVE (NEGATIVE) Valproic Acid (50.0-100.0) mcg/mL ECG Data Attestation: I personally reviewed and interpreted this ECG as follows: Interpretation: EKG normal sinus rhythm with a rate of 68. Left ventricular hypertrophy. Nonischemic-no STEMI Discharge Plan Discharge Clinical Impression: Dental caries Patient Disposition: Home, Self-Care Instructions: Mouth Care (ED), Dysuria (ED) Additional Instructions: Your blood work and chest x-ray were reassuring today in the ED Your urine is not infected, Pyridium help with her discomfort Augmentin as an antibiotic that will help with her to however you need to see dentist Continue your home prescribed medications You need to establish care with a PCP If her symptoms persist or worsen please return to the ED Prescriptions: New amoxicillin-pot clavulanate [Augmentin] 875-125 mg tablet 1 tab PO Q12H 7 Days Qty: 14 RF: 0 phenazopyridine [Pyridium] 100 mg tablet 200 mg PO TID PRN (Reason: pain) Qty: 10 RF: 0 divalproex [Depakote] 250 mg tablet,delayed release (DR/EC) 250 mg PO BID 30 Days Qty: 60 RF: 0 No Action multivitamin Tablet 1 tab PO DAILY RF: 0 divalproex [Depakote] 250 mg Tablet,Delayed Release (Dr/Ec) 250 mg PO BID RF: 0 olanzapine 10 mg Tablet 10 mg PO DAILY RF: 0 penicillin V potassium 500 mg tablet 500 mg PO Q12H 10 Days Qty: 20 RF: 0 divalproex [Depakote] 250 mg tablet,delayed release (DR/EC) 250 mg PO BID Qty: 60 RF: 0 divalproex [Depakote] 250 mg tablet,delayed release (DR/EC) 250 mg PO BID Qty: 60 RF: 0 penicillin V potassium 500 mg tablet 500 mg PO Q12H 10 Days Qty: 20 RF: 0 ciprofloxacin HCl [Cipro] 500 mg tablet 500 mg PO BID 14 Days Qty: 28 RF: 0 ciprofloxacin HCl [Cipro] 500 mg tablet 500 mg PO Q12H 7 Days Qty: 14 RF: 0 Referrals: Hilary Cruz DMD [Dentist] - 2 days Jeronimo Burgess DDS [Physician] - 2 days Deonna David MD [Physician] - 5 days
[2020-09-14] MEDS: 0.9 % Sodium Chloride 1,000 ML 999 ML IVCONT (14:02)
[2020-09-14] MEDS: Acetaminophen 325 MG TABLET 650 MG PO (14:02)
[2020-09-14] MEDS: Meclizine HCl 25 MG TABLET PO (14:02)
[2020-09-14 14:03] LABS: MANUAL DIFF FLAG NO
--- NOTE | 2020-09-14 14:04 | PC.NURSE ---
IV inserted and labs obtained/sent to lab. Urine also sent at this time. Pt medicated and resting in bed.
[2020-09-14 14:07] LABS: Basophils Absolute Auto 0.1 X10*3/uL (0.0-0.2); Basophils Percent Auto 0.6 % (0-2); Eosinophils Absolute Auto 0.4 X10*3/uL (0.0-0.4); Eosinophils Percent Auto 4.9 % (0-4); Hematocrit 39.3 % (37-47); Imm Gran Abs Auto 0.03 X10*3/uL (0.00-0.03); Imm Gran Pct Auto 0.3 % (0.0-0.4); Lymphocytes Absolute Auto 2.7 X10*3/uL (1.2-4.9); Lymphocytes Percent Auto 31.3 % (20-40); Mean Corpuscular HGB Conc 33.1 g/dl (31.0-35.0); Mean Corpuscular Volume 90.6 fL (80-98); Mean Platelet Volume 11.5 fL (9.4-12.3); Monocytes Absolute Auto 0.8 X10*3/uL (0.1-1.2); Monocytes Percent Auto 9.1 % (2-11); Neutrophils Absolute Auto 4.7 X10*3/uL (2.0-8.3); Neutrophils Percent Auto 53.8 % (45-73); Platelet Count 232 X10*3/uL (160-400); Red Blood Count 4.34 X10*6/uL (4.20-5.50); Red Cell Distribution Width 14.3 % (11.0-16.0); White Blood Count 8.7 X10*3/uL (4.8-10.8)
[2020-09-14 14:12] VITALS: BP 118/74; BP 123/82; PULSE 60; PULSE 64
[2020-09-14 14:13] VITALS: BP 129/80; PULSE 63
[2020-09-14 14:16] LABS: Glucose Urine UA NEG (NEG); Leukocyte Esterase Urine NEG (NEG); Nitrite Urine NEG (NEG); Specific Gravity - Urine 1.025 (1.005-1.025); Urine Blood 2+ (NEG); Urine Ketones NEG (NEG); Urine Protein NEG (NEG-TRACE)
[2020-09-14 14:17] LABS: Appearance Urine CLOUDY; Color Urine YELLOW
[2020-09-14 14:18] LABS: UPreg QC Valid YES; Urine Pregnancy NEGATIVE (NEGATIVE)
[2020-09-14 14:35] LABS: Bacteria Urine 1+ /LPF; Mucus Urine 2+ /LPF; Squamous Epithelial Cell Urine 2+ /LPF
[2020-09-14 14:46] LABS: Troponin-I High Sensitivity < 3.5 ng/L (<3.5-17.0); Valproate < 2.0 mcg/mL (50.0-100.0)
[2020-09-14 15:01] LABS: Alanine Aminotransferase 27 U/L (0-31); Albumin Level 4.3 g/dL (3.5-5.0); Alkaline Phosphatase 56 U/L (39-117); Anion Gap 15 (12-20); Aspartate Amino Transferase 25 U/L (5-31); Bilirubin Direct < 0.2 mg/dL (0.0-0.5); Bilirubin Total 0.3 mg/dL (0.0-1.0); Blood Urea Nitrogen 14 mg/dL (9-16); Calcium 9.3 mg/dL (8.4-10.2); Carbon Dioxide 22 mmol/L (22-29); Chloride 103 mmol/L (96-108); Creatinine Clr Calc Pharmacy 94.4; Estimated Glomerular Filt Rate > 60; Glucose Random 83 mg/dL (60-115); Lipase 24 U/L (8-78); Magnesium 1.9 mg/dL (1.6-2.6); Potassium 4.4 mmol/L (3.3-5.1); Sodium 136 mmol/L (135-145); Total Protein 7.4 g/dL (6.5-8.0)
[2020-09-14] MEDS: Divalproex Sodium ER 250 MG TAB.ER.24H PO (16:46)
[2020-09-14 19:28] LABS: Amphetamine Screen Urine Not Detected (Not Detect); Barbiturates, Urine Not Detected (Not Detect); Benzodiazepines Screen Urine Not Detected (Not Detect); Cannabinoid Screen Urine POSITIVE (Not Detect); Cocaine Screen Urine Not Detected (Not Detect); Opiate Screen Urine Not Detected (Not Detect); Phencyclidine Screen Urine Not Detected (Not Detect)
== END 2020-09-14 16:52 | disposition home or self-care (01) ==
PROVIDERS: Physician Assistant; Emergency Provider Emergency Medicine
DX: K08.89 Other specified disorders of teeth and supporting structures (principal); R30.0 Dysuria; F31.9 Bipolar disorder, unspecified; F12.90 Cannabis use, unspecified, uncomplicated
CPT/HCPCS: 36415; 71045; 80048; 80076; 80164; 80307; 81001; 81025; 83690; 83735; 84484; 85025; 93005; 96360; 99284

== ENCOUNTER 2020-09-28 10:33 | Emergency (ER) | payer MEDICAID, SELFPAY ==
[2020-09-28 10:36] VITALS: BP 109/68; PULSE 72; RESP 16; TEMP 36.4; O2SAT 100; BMI 29.2
[2020-09-28] MEDS: Fluconazole 150 MG TABLET PO (11:15)
[2020-09-28] MEDS: Ketorolac Tromethamine 30 MG/ML VIAL IM (11:15)
--- NOTE | 2020-09-28 11:16 | ED.FEMALEGU ---
HPI - Female Genitourinary General Chief complaint: Urogenital-Female Stated complaint: itchy vagina, sore throat Time Seen by Provider: 09/28/20 10:49 Source: patient Mode of arrival: ambulatory Limitations: no limitations History of Present Illness HPI Narrative: 30 yo female with history of a dental infection, recently on Amoxicillin presents to the ER with continued left lower dental pain and itchy external genitalia with white discharge since yesterday. She reports losing her bottle of antibiotics 2 days ago. She has called several dentists in the area and knows she needs to get the tooth extracted. She denies facial pain or swelling. No fever or chills. She is not sexually active and is not concerned for STI's. She is not diabetic. She reports this feels similar to when she had an infection in the past and she was treated with an intravagainal cream. MD elicited complaint: vaginal discharge and genital itching Onset (ago): day(s) Location of symptoms: external genitalia and vaginal Severity: moderate Female Urogenital Radiation: Non-Radiating Severity scale (1-10): 4 Quality of pain: burning Consistency: constant Vaginal discharge: white and thick/cheesy Vaginal bleeding: none Exacerbating factors: palpation Relieving factors: none Associated symptoms: denies other symptoms Treatment prior to arrival: none Sexual activity: No Patient : No Related Data Previous Rx's Medication Instructions Recorded amoxicillin-pot clavulanate 1 tab PO BID #10 tab 09/28/20 [Augmentin] fluconazole [Diflucan] 150 mg PO ONCE #1 tab 09/28/20 ibuprofen 600 mg PO Q8H PRN #10 tab 09/28/20 Allergies Allergy/AdvReac Type Severity Reaction Status Date / Time No Known Allergies Allergy Verified 09/28/20 10:39 Review of Systems Review of Systems: Constitutional: No Fever, No Chills ENT/Mouth: No sore throat, No Rhinorrhea, No Swallowing Difficulty, +tooth pain Cardiovascular: No Chest Pain, No SOB Respiratory: No Cough, No Sputum Gastrointestinal: No Nausea, No Vomiting, No Diarrhea, No abdominal Pain Genitourinary: No Dysuria, No Urinary Frequency, No Hematuria, +vaginal discharge, +vaginal itching Skin: No Skin Lesions, No rash Heme/Lymph: No Lymphadenopathy PMFSH Past Medical History Attestation statement: The following information was validated with the patient. Social History Social History Advance Directives: Yes Advance Directives Information Provided: Yes Advance Directives on File: No Patient : No Physical Exam Vital Signs: Vital Signs: Last Vital Signs Temp 97.5 F 09/28/20 10:36 Pulse 72 09/28/20 10:36 Resp 16 09/28/20 10:36 BP 109/68 09/28/20 10:36 Pulse Ox 100 09/28/20 10:36 Body Mass Index 29.2 Appearance: Alert. Oriented X3. No acute distress. Eyes: Pupils equal, round and reactive to light. ENT: left lower molar with decay and tenderness with associated gingival edema, no palpable fluctuance or abscess. no trismus. no facial swelling Neck: Normal inspection. Neck supple. CVS: Normal heart rate and rhythm. Pulses normal. Respiratory: No respiratory distress. Breath sounds normal. Abdomen: Soft and nontender. +BS x4 : labia minor with mild excoriations and erythema, white, thick vaginal discharge. nontender manual examination. no masses Skin: Skin warm and dry. Normal skin color. Normal skin turgor. No rashes. Extremities: No lower extremity edema. Neuro: Oriented X 3. No motor deficit. No sensory deficit. Course Course Course Narrative: 30 y/o female presenting with vaginal itching and discharge in the setting of being on antibiotics recently. Clinical presentation and examination consistent with candidal vulvovaginitis, will treat as such. No evidence of PID and not sexually active. Will give dose of Dilflucan now and provide another dose for 3 days from now if she is still symptomatic. Will provide a few days of Augmentin for dental infection until she can be seen by a dentist. Emergency numbers provided. Patient will call. She understands importance of dental follow up. Numbers for [facility] provided as well. Stable for d/c. Critical Care Time Critical Care Time Critical Care Time: No Discharge Plan Discharge Clinical Impression: Candidal vulvovaginitis, Pain, dental Patient Disposition: Home, Self-Care Instructions: Yeast Infection (ED) Additional Instructions: Take the antibiotic called Augmentin as directed for your tooth pain and possible infection. Recommend following up with a dentist [facility]. Recommend taking a probiotic (found over the counter), while you are on antibiotics. Take the prescribed ibuprofen every 8 hours as needed for toothache, take with food. You were treated for vaginal yeast infection in the ER today. If you are still having itching and discharge on Friday take the 2nd dose of treatment that was sent to your pharmacy. Follow up with the [facility]. If you have worsening or persistent symptoms come back to the ER for further evaluation. Prescriptions: New fluconazole [Diflucan] 150 mg tablet 150 mg PO ONCE Qty: 1 RF: 0 ibuprofen 600 mg tablet 600 mg PO Q8H PRN (Reason: pain) Qty: 10 RF: 0 amoxicillin-pot clavulanate [Augmentin] 500-125 mg tablet 1 tab PO BID Qty: 10 RF: 0 Stand Alone Forms: Dental Emergency Numbers Interventions: ED Discharge Assessment Last Done: 09/28/20 11:32 Discharge Date/Time: 09/28/20 11:33
== END 2020-09-28 11:33 | disposition home or self-care (01) ==
PROVIDERS: Emergency Provider Emergency Medicine
DX: B37.3 Candidiasis of vulva and vagina (principal); N89.8 Other specified noninflammatory disorders of vagina; K08.89 Other specified disorders of teeth and supporting structures; Z79.899 Other long term (current) drug therapy
CPT/HCPCS: 96372; 99283; 99284; J1885

== ENCOUNTER 2020-10-02 10:30 | Emergency (ER) | payer MEDICAID, SELFPAY ==
--- NOTE | ~2020-10-02 | CT_ITS ---
EXAMINATION: CT ANGIOGRAM OF THE CHEST WITH AND WITHOUT CONTRAST (CT PULMONARY ANGIOGRAM FOR PE) CLINICAL INFORMATION: Reason for Exam sob/cp, r/o pe COMPARISON: None TECHNIQUE: Prior to contrast administration, noncontrast localization images were obtained. Subsequently, multidetector volumetric imaging was performed from the thoracic inlet to below the diaphragms following the administration of 80 mL Omnipaque 350 intravenous contrast. No contrast reaction reported Sagittal, coronal, and MIP oblique sagittal reformatted images were obtained on the CT workstation, uploaded to PACS, and reviewed. This CT examination was performed using dose optimization techniques as appropriate, variously including the following: *Automated exposure control *Adjustment of mA and/or kV according to patient size (this includes techniques or standardized protocols for targeted exams where dose is matched to indication/reason for exam; i.e. extremities or head) *Use of iterative reconstruction technique Total exam dose-length product 257 mGy-cm FINDINGS: QUALITY OF STUDY/CONTRAST BOLUS: Satisfactory. PULMONARY ARTERIES: No central or segmental pulmonary emboli. THORACIC AORTA: No aneurysm or dissection. LUNG: No focal consolidation, nodules or masses. Incidental note is made of 1.4 x 1.2 x 1 cm cyst in the right apex. PLEURA: No pleural effusion or pneumothorax. MEDIASTINUM: Normal heart size. No pericardial effusion. No hilar or mediastinal lymphadenopathy. No evidence of septal bowing or right heart strain. CHEST WALL/AXILLA: No axillary or internal mammary lymphadenopathy. OSSEOUS STRUCTURES: No acute or suspicious osseous abnormality. UPPER ABDOMEN: Unremarkable. No reflux of contrast into the hepatic veins to suggest elevated right heart pressures. CT/CT angio chest PE protocol IMPRESSION: 1. No evidence for pulmonary embolism. 2. No acute disease within the chest. VTE: negative
--- NOTE | ~2020-10-02 | US_ITS ---
EXAMINATION: ULTRASOUND PELVIC, COMPLETE CLINICAL INFORMATION: Left pelvic pain and discharge, rule out tubo-ovarian abscess. COMPARISON: None. TECHNIQUE: Transabdominal and transvaginal imaging was performed. Transvaginal imaging was performed for further evaluation of the endometrium and adnexa. FINDINGS: The uterus is anteverted and retroflexed of normal size and echogenicity measuring 10.8 x 4.1 x4.9 cm. There is a 1 x 0.7 x 0.9 cm cystic lesion in the left upper uterus abutting the endometrium, that may represent a cyst versus small fibroid. A regular homogeneous endometrium is identified measuring 1.2 cm. There is an intrauterine device, that appears displaced and in the lower uterine segment approximately 3.9 cm away from the fundal endometrium. The right ovary measures 2.8 x 1.2 x 1 cm for a volume of 1.8 mL. There is a 0.8 cm ill-defined echogenic structure within the right ovary, that may represent a dermoid versus hemorrhagic cyst or endometrioma. The left ovary measures 6. 4 x 4 by 7 cm for a volume of 93.8 mL. There is a large cyst within the left ovary measuring up to 6.3 cm with a single thin septation. There is normal flow to both ovaries. There is no pelvic free fluid. US/US pelvic complete IMPRESSION: Intrauterine device is displaced inferiorly, within the endometrium of the lower uterine segment, approximately 3.9 cm away from the fundal endometrium. 1 cm cystic appearing lesion in the left upper uterus abutting the endometrium, that may represent a cyst versus small fibroid. 6.3 cm cyst within the left ovary measuring up to 6.3 cm, with a single thin septation. Recommend follow-up ultrasound in 6-12 weeks to evaluate for resolution. 0.8 cm echogenic focus within the right ovary, that may represent a dermoid versus hemorrhagic cyst or endometrioma. Attention on follow-up imaging is recommended. Consider MRI for further evaluation if persistent on follow-up ultrasound.
[2020-10-02 10:32] VITALS: BP 131/80; PULSE 89; RESP 18; TEMP 35.9; O2SAT 98; BMI 30.2
--- NOTE | 2020-10-02 12:16 | ECG_ITS ---
Test Reason : CHEST WALL PAIN Blood Pressure : / mmHG Vent. Rate : 075 BPM Atrial Rate : 075 BPM P-R Int : 156 ms QRS Dur : 072 ms QT Int : 346 ms P-R-T Axes : 049 040 023 degrees QTc Int : 386 ms Normal sinus rhythm Normal ECG When compared with ECG of 14-SEP-2020 14:06, No significant change was found Referred By: Joya Lopez Electronically Signed By:VALENCIA JALLOH
--- NOTE | 2020-10-02 12:17 | ED.GENADULT ---
HPI - General Adult General Chief complaint: General Medical Stated complaint: ABD PAIN Time Seen by Provider: 10/02/20 12:11 Source: patient Mode of arrival: ambulatory Limitations: no limitations Related Data Home Medications Medication Instructions Recorded Confirmed divalproex [Depakote] 250 mg PO BID 07/29/20 07/29/20 multivitamin 1 tab PO DAILY 07/29/20 07/29/20 olanzapine 10 mg PO DAILY 07/29/20 07/29/20 Previous Rx's Medication Instructions Recorded divalproex [Depakote] 250 mg PO BID #60 tab 08/09/20 penicillin V potassium 500 mg PO Q12H 10 Days #20 tab 08/09/20 ciprofloxacin HCl [Cipro] 500 mg PO Q12H 7 Days #14 tab 08/13/20 ciprofloxacin HCl [Cipro] 500 mg PO BID 14 Days #28 tab 08/19/20 divalproex [Depakote] 250 mg PO BID #60 tab 08/19/20 penicillin V potassium 500 mg PO Q12H 10 Days #20 tab 08/19/20 amoxicillin-pot clavulanate 1 tab PO Q12H 7 Days #14 tab 09/14/20 [Augmentin] divalproex [Depakote] 250 mg PO BID 30 Days #60 tab 09/14/20 phenazopyridine [Pyridium] 200 mg PO TID PRN #10 tab 09/14/20 Allergies Allergy/AdvReac Type Severity Reaction Status Date / Time No Known Allergies Allergy Verified 07/29/20 14:35 [No Known Allergies*] PMFSH Past Medical History Medical History Bipolar 1 disorder Social History Social History Advance Directives: Yes Advance Directives Information Provided: Yes Advance Directives on File: No Patient : No Physical Exam Vital Signs: Vital Signs: Last Vital Signs Temp 96.6 F L 10/02/20 10:32 Pulse 89 10/02/20 10:32 Resp 18 10/02/20 10:32 BP 131/80 10/02/20 10:32 Pulse Ox 98 10/02/20 10:32 Body Mass Index 30.2 Discharge Plan Discharge Prescriptions: No Action multivitamin Tablet 1 tab PO DAILY RF: 0 divalproex [Depakote] 250 mg Tablet,Delayed Release (Dr/Ec) 250 mg PO BID RF: 0 olanzapine 10 mg Tablet 10 mg PO DAILY RF: 0 penicillin V potassium 500 mg tablet 500 mg PO Q12H 10 Days Qty: 20 RF: 0 divalproex [Depakote] 250 mg tablet,delayed release (DR/EC) 250 mg PO BID Qty: 60 RF: 0 divalproex [Depakote] 250 mg tablet,delayed release (DR/EC) 250 mg PO BID Qty: 60 RF: 0 penicillin V potassium 500 mg tablet 500 mg PO Q12H 10 Days Qty: 20 RF: 0 ciprofloxacin HCl [Cipro] 500 mg tablet 500 mg PO BID 14 Days Qty: 28 RF: 0 ciprofloxacin HCl [Cipro] 500 mg tablet 500 mg PO Q12H 7 Days Qty: 14 RF: 0 amoxicillin-pot clavulanate [Augmentin] 875-125 mg tablet 1 tab PO Q12H 7 Days Qty: 14 RF: 0 phenazopyridine [Pyridium] 100 mg tablet 200 mg PO TID PRN (Reason: pain) Qty: 10 RF: 0 divalproex [Depakote] 250 mg tablet,delayed release (DR/EC) 250 mg PO BID 30 Days Qty: 60 RF: 0
--- NOTE | 2020-10-02 12:33 | ED_ITS ---
HPI - General Adult General Chief complaint: General Medical Stated complaint: ABD PAIN Time Seen by Provider: 10/02/20 12:11 Source: patient Mode of arrival: ambulatory Limitations: no limitations History of Present Illness HPI narrative: A 40-year-old female with a past medical history of bipolar disease, anxiety here with multiple complaints. Patient tells me that for the last 2 days she has had vaginal itching with discharge with some pelvic discomfort. No urinary symptoms, fevers, chills, nausea, vomiting, diarrhea. She also has some chest discomfort which is worsened with palpation. No cough for shortness of breath. Patient tells me that she does not have a primary care doctor or a COMPUTER TECHNOLOGIST doctor. Cannot remember her last Pap smear. She is not currently sexually active but tells me she last had intercourse 1 week ago which was unprotected. No current OCP use. Related Data Home Medications Medication Instructions Recorded Confirmed divalproex [Depakote] 250 mg PO BID 07/29/20 07/29/20 multivitamin 1 tab PO DAILY 07/29/20 07/29/20 olanzapine 10 mg PO DAILY 07/29/20 07/29/20 Previous Rx's Medication Instructions Recorded divalproex [Depakote] 250 mg PO BID #60 tab 08/09/20 penicillin V potassium 500 mg PO Q12H 10 Days #20 tab 08/09/20 ciprofloxacin HCl [Cipro] 500 mg PO Q12H 7 Days #14 tab 08/13/20 ciprofloxacin HCl [Cipro] 500 mg PO BID 14 Days #28 tab 08/19/20 divalproex [Depakote] 250 mg PO BID #60 tab 08/19/20 penicillin V potassium 500 mg PO Q12H 10 Days #20 tab 08/19/20 amoxicillin-pot clavulanate 1 tab PO Q12H 7 Days #14 tab 09/14/20 [Augmentin] divalproex [Depakote] 250 mg PO BID 30 Days #60 tab 09/14/20 phenazopyridine [Pyridium] 200 mg PO TID PRN #10 tab 09/14/20 Allergies Allergy/AdvReac Type Severity Reaction Status Date / Time No Known Allergies Allergy Verified 07/29/20 14:35 [No Known Allergies*] Review of Systems Review of Systems: Yes all other systems are reviewed and are negative Constitutional: Constitutional: Reports no additional constitutional complaints, Denies body ache(s), Denies chills, Denies fever(s), Denies headache(s) and Denies weakness Eyes: Eyes: Reports no additional eye complaints and Denies change in vision ENT: Reports system reviewed and no additional complaints, except as documented, Denies dizziness, Denies headache(s), Denies nasal congestion, Denies nasal discharge and Denies neck pain Cardiovascular: Cardiovascular: Reports no additional cardiovascular complaints, Reports chest pain, Denies leg edema and Denies dyspnea Respiratory: Respiratory: Reports no additional respiratory complaints, Denies cough and Denies dyspnea Gastrointestinal: Gastrointestinal: Reports no additional gastrointestinal complaints, Reports abdominal pain, Denies diarrhea, Denies nausea and Denies vomiting Genitourinary: Genitourinary: Reports no additional female genitourinary complaints, Denies dysuria, Reports pelvic pain, Denies flank pain, Denies urinary incontinence, Denies urinary hesitancy, Denies urinary urgency, Reports vaginal discharge, Denies vaginal dryness, Denies vaginal odor and Reports vaginal pruritus Musculoskeletal: Musculoskeletal: Reports no additional musculoskeletal complaints, Denies back pain, Denies arthralgias, Denies joint swelling, Denies neck pain, Denies numbness and Denies tingling Integumentary/Breasts: Skin/Breast: Reports system reviewed and no additional complaints, except as docu and Denies rash Neurologic: Reports system reviewed and no additional complaints, except as documented, Denies Abnormal speech present, Denies dizziness, Denies headache(s), Denies numbness, Denies tingling and Denies weakness PMF Past Medical History Attestation statement: The following information was validated with the patient. Source: old records reviewed and nursing notes reviewed Medical History Bipolar 1 disorder Social History Social History Advance Directives: Yes Advance Directives Information Provided: Yes Advance Directives on File: No Patient : No Physical Exam 2 Vital Signs: Vital Signs: Last Vital Signs Temp 98.2 F 10/02/20 15:21 Pulse 71 10/02/20 15: Resp 20 10/02/20 15:21 BP 132/84 10/02/20 15:21 Pulse Ox 98 10/02/20 15:21 Body Mass Index 30.2 Const: General: cooperative, healthy appearing, comfortable and no acute distress Orientation/consciousness: patient oriented x3 Limitations: no limitations HENMT: Head: Yes normal to inspection Ears: hearing grossly normal bilaterally General nose exam: Normal external nose present Face and sinus: Yes normal facial exam Mouth: Normal oral and palatal mucosa present Throat: Yes posterior oropharynx normal Eyes: General: appearance normal, both eyes and all related structures Pupils: Equal, round and reactive pupils present Neck: Neck: Yes normal visual inspection Chest: Other: Central chest tender to palpate. Worse with palpation. Not pleuritic Chest palpation & inspection: normal inspection of the chest Resp: Effort & Inspection: normal respiratory effort Auscultation: clear to auscultation bilaterally Cardio: Rate: regular rate Rhythm: regular rhythm Peripheral pulses: Peripheral pulses 2+ throughout GI: Inspection: Yes normal to inspection Palpation (GI): Soft to palpation and Tenderness to palpation present (GI) (Left pelvic. No rebound or guarding) Auscultation: normal bowel sounds : Other: Copious vaginal discharge noted which is thick and white. There is excoriation to the external perineum and labia majora with no clear lesions. L adnexal tenderness. 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 Speculum Exam - Cervix: normal appearance of the cervix Back/Spine/Pelvis: Thoracic/Lumbar Spine: thoracic and lumbar spine normal to inspection Skin: General skin exam: no rashes or lesions noted Neuro: General: patient oriented x3, no focal motor deficits and normal sensation to monofilament Cranial nerves: Yes Equal, round and reactive pupils present Cognition (Neuro): normal cognition Speech: No Abnormal speech present Gait exam (Neuro): Normal gait present Motor exam (neuro): 5/5 motor strength present throughout Extrem: General: Yes normal to inspection, Yes no pedal edema and Yes no calf tenderness Course Course Course Narrative: 40-year-old female here with multiple complaints. Patient is mainly complaining of left lower abdominal pain with associated vaginal itching, vaginal discharge and pain. No urinary symptoms. No nausea, vomiting, diarrhea. Also complaining of some chest discomfort which is worsened with palpation and is not pleuritic in nature with no associated shortness of breath or cough. Will need labs, UA, pelvic exam with STI testing, EKG. 1230-EKG shows qwave and T wave inversion in lead 3. Consider PE, Add on CXR, troponin and d dimer. 1305-copious vaginal discharge with excoriation noted. Left adnexal tenderness on exam. GC, BV testing sent. Will send HSV although no obvious lesions. ?excoriation noted from moisture. Per nursing patient seems to be responding to external stimuli, talking out loud and responding to stimuli. Patient denies. No SI/HI. 1400-elevated D-dimer. In the setting of EKG changes, pleuritic chest pain will check CTA to rule out PE. 1600-CTA negative for PE. Ultrasound of the pelvis shows intrauterine device displaced inferiorly. Several cystic lesions over the bilateral ovaries and a uterine fibroid noted. Recommend ultrasound in 6-12 weeks for follow-up. Patient given report and will follow up with Gynecology. Gonorrhea and chlamydia testing negative. BV pending. Will treat prophylactically for trich/BV and danielle with p.o. Flagyl 2 g x1 and diflucan 150mg x1. Patient is telling me she ran out of her Depakote and Zyprexa 2 weeks ago and is requesting a refill for her medications. Will involve [facility]. 181-care team spoke to patient. No safety concerns. No SI or HI. She does have a psychiatrist in [place]. She tells me that he normally feels her medications. We discussed that she needs to reach out to him tomorrow and restart her medications. We also discussed that the emergency department does not prescribe these medications. Reviewed worrisome signs and symptoms and when to return to the emergency department. Comfortable discharge home. Medical Decision Making MDM Narrative Medical decision making narrative: STI, PID, UTI, ectopic , BV/danielle costochrondritis, acs, pe Medical Records Medical records reviewed: Yes I reviewed the patient's medical records. Lab Data Lab results reviewed: Yes I reviewed the patient's lab results. Result diagrams: 10/02/20 13:13 10/02/20 13:13 Labs: Lab Results 10/02/20 10/02/20 10/02/20 Range/Units 13:13 13:13 13:13 WBC 11.0 H (4.8-10.8) X10*3/uL RBC 4.52 (4.20-5.50) X10*6/uL Hgb 13.3 (12.0-16.0) g/dl Hct 40.3 (37-47) % MCV 89.2 (80-98) fL MCH 29.4 (27.0-33.0) pg MCHC 33.0 (31.0-35.0) g/dl RDW 14.0 (11.0-16.0) % Plt Count 240 (160-400) X10*3/uL MPV 11.0 (9.4-12.3) fL Immature Gran % (Auto) 0.4 (0.0-0.4) % Neut % (Auto) 75.6 H (45-73) % Lymph % (Auto) 12.6 L (20-40) % [place] % (Auto) 9.5 (2-11) % Eos % (Auto) 1.6 (0-4) % Baso % (Auto) 0.3 (0-2) % Lymph # (Auto) 1.4 (1.2-4.9) X10*3/uL [place] # (Auto) 1.0 (0.1-1.2) X10*3/uL Eos # (Auto) 0.2 (0.0-0.4) X10*3/uL Baso # (Auto) 0.0 (0.0-0.2) X10*3/uL Abs Immat Gran (auto) 0.04 H (0.00-0.03) X10*3/uL Absolute Neuts (auto) 8.3 (2.0-8.3) X10*3/uL Absolute Nucleated RBC 0.000 (0.0-0.012) X10*3/uL Nucleated RBC % (auto) 0.0 (0.0-0.2) /100WBC D-Dimer 628 NG/ML Sodium 138 (135-145) mmol/L Potassium 4.0 (3.3-5.1) mmol/L Chloride 103 (96-108) mmol/L Carbon Dioxide 26 (22-29) mmol/L Anion Gap 13 (12-20) BUN 8 L (9-16) mg/dL Creatinine 0.77 (0.5-1.4) mg/dL Estim Creat Clear Calc 93.8 Estimated GFR > 60 Random Glucose 86 (60-115) mg/dL Calcium 9.5 (8.4-10.2) mg/dL Magnesium 1.6 (1.6-2.6) mg/dL Total Bilirubin 0.3 (0.0-1.0) mg/dL Direct Bilirubin < 0.2 (0.0-0.5) mg/dL AST 24 (5-31) U/L ALT 29 (0-31) U/L Alkaline Phosphatase 66 (39-117) U/L Troponin I High Sens (<3.5-17.0) ng/L Total Protein 7.4 (6.5-8.0) g/dL Albumin 4.5 (3.5-5.0) g/dL Urine Color Urine Appearance Urine pH (5.0-8.0) Ur Specific [place] (1.005-1.025) Urine Protein (NEG-TRACE) MG/DL Urine Glucose (UA) (NEG) MG/DL Urine Ketones (NEG) MG/DL Urine Blood (NEG) Urine Nitrite (NEG) Ur Leukocyte Esterase (NEG) Urine Test (NEGATIVE) Chlam trachomat DNA PCR (Not Detect.) N.gonorrhoeae DNA (PCR) (Not Detect.) 10/02/20 10/02/20 10/02/20 Range/Units 13:13 13:13 13:13 WBC (4.8-10.8) X10*3/uL RBC (4.20-5.50) X10*6/uL Hgb (12.0-16.0) g/dl Hct (37-47) % MCV (80-98) fL MCH (27.0-33.0) pg MCHC (31.0-35.0) g/dl RDW (11.0-16.0) % Plt Count (160-400) X10*3/uL MPV (9.4-12.3) fL Immature Gran % (Auto) (0.0-0.4) % Neut % (Auto) (45-73) % Lymph % (Auto) (20-40) % [place] % (Auto) (2-11) % Eos % (Auto) (0-4) % Baso % (Auto) (0-2) % Lymph # (Auto) (1.2-4.9) X10*3/uL [place] # (Auto) (0.1-1.2) X10*3/uL Eos # (Auto) (0.0-0.4) X10*3/uL Baso # (Auto) (0.0-0.2) X10*3/uL Abs Immat Gran (auto) (0.00-0.03) X10*3/uL Absolute Neuts (auto) (2.0-8.3) X10*3/uL Absolute Nucleated RBC (0.0-0.012) X10*3/uL Nucleated RBC % (auto) (0.0-0.2) /100WBC D-Dimer NG/ML Sodium (135-145) mmol/L Potassium (3.3-5.1) mmol/L Chloride (96-108) mmol/L Carbon Dioxide (22-29) mmol/L Anion Gap (12-20) BUN (9-16) mg/dL Creatinine (0.5-1.4) mg/dL Estim Creat Clear Calc Estimated GFR Random Glucose (60-115) mg/dL Calcium (8.4-10.2) mg/dL Magnesium (1.6-2.6) mg/dL Total Bilirubin (0.0-1.0) mg/dL Direct Bilirubin (0.0-0.5) mg/dL AST (5-31) U/L ALT (0-31) U/L Alkaline Phosphatase (39-117) U/L Troponin I High Sens < 3.5 (<3.5-17.0) ng/L Total Protein (6.5-8.0) g/dL Albumin (3.5-5.0) g/dL Urine Color YELLOW Urine Appearance HAZY Urine pH 7.0 (5.0-8.0) Ur Specific [place] 1.020 (1.005-1.025) Urine Protein NEG (NEG-TRACE) MG/DL Urine Glucose (UA) NEG (NEG) MG/DL Urine Ketones NEG (NEG) MG/DL Urine Blood NEG (NEG) Urine Nitrite NEG (NEG) Ur Leukocyte Esterase NEG (NEG) Urine Test NEGATIVE (NEGATIVE) Chlam trachomat DNA PCR (Not Detect.) N.gonorrhoeae DNA (PCR) (Not Detect.) 10/02/20 Range/Units 13:14 WBC (4.8-10.8) X10*3/uL RBC (4.20-5.50) X10*6/uL Hgb (12.0-16.0) g/dl Hct (37-47) % MCV (80-98) fL MCH (27.0-33.0) pg MCHC (31.0-35.0) g/dl RDW (11.0-16.0) % Plt Count (160-400) X10*3/uL MPV (9.4-12.3) fL Immature Gran % (Auto) (0.0-0.4) % Neut % (Auto) (45-73) % Lymph % (Auto) (20-40) % [place] % (Auto) (2-11) % Eos % (Auto) (0-4) % Baso % (Auto) (0-2) % Lymph # (Auto) (1.2-4.9) X10*3/uL [place] # (Auto) (0.1-1.2) X10*3/uL Eos # (Auto) (0.0-0.4) X10*3/uL Baso # (Auto) (0.0-0.2) X10*3/uL Abs Immat Gran (auto) (0.00-0.03) X10*3/uL Absolute Neuts (auto) (2.0-8.3) X10*3/uL Absolute Nucleated RBC (0.0-0.012) X10*3/uL Nucleated RBC % (auto) (0.0-0.2) /100WBC D-Dimer NG/ML Sodium (135-145) mmol/L Potassium (3.3-5.1) mmol/L Chloride (96-108) mmol/L Carbon Dioxide (22-29) mmol/L Anion Gap (12-20) BUN (9-16) mg/dL Creatinine (0.5-1.4) mg/dL Estim Creat Clear Calc Estimated GFR Random Glucose (60-115) mg/dL Calcium (8.4-10.2) mg/dL Magnesium (1.6-2.6) mg/dL Total Bilirubin (0.0-1.0) mg/dL Direct Bilirubin (0.0-0.5) mg/dL AST (5-31) U/L ALT (0-31) U/L Alkaline Phosphatase (39-117) U/L Troponin I High Sens (<3.5-17.0) ng/L Total Protein (6.5-8.0) g/dL Albumin (3.5-5.0) g/dL Urine Color Urine Appearance Urine pH (5.0-8.0) Ur Specific [place] (1.005-1.025) Urine Protein (NEG-TRACE) MG/DL Urine Glucose (UA) (NEG) MG/DL Urine Ketones (NEG) MG/DL Urine Blood (NEG) Urine Nitrite (NEG) Ur Leukocyte Esterase (NEG) Urine Test (NEGATIVE) Chlam trachomat DNA PCR NOT DETECTED (Not Detect.) N.gonorrhoeae DNA (PCR) NOT DETECTED (Not Detect.) Imaging Data pelvic US: Attestation: I personally reviewed and interpreted this imaging study as follows: Radiologist's impression: MPRESSION: Intrauterine device is displaced inferiorly, within the endometrium of the lower uterine segment, approximately 3.9 cm away from the fundal endometrium. 1 cm cystic appearing lesion in the left upper uterus abutting the endometrium, that may represent a cyst versus small fibroid. 6.3 cm cyst within the left ovary measuring up to 6.3 cm, with a single thin septation. Recommend follow-up ultrasound in 6-12 weeks to evaluate for resolution. 0.8 cm echogenic focus within the right ovary, that may represent a dermoid versus hemorrhagic cyst or endometrioma. Attention on follow-up imaging is recommended. Consider MRI for further evaluation if persistent on follow-up ultrasound. CT scan - chest: Attestation: I personally reviewed and interpreted this imaging study as follows: Radiologist's impression: CT/CT angio chest PE protocol IMPRESSION: 1. No evidence for pulmonary embolism. 2. No acute disease within the chest. VTE: negative ECG Data Attestation: I personally reviewed and interpreted this ECG as follows: Interpretation: Normal sinus rhythm with rate of 75, normal TN, normal QRS, normal QTC, Q-wave present in lead 3 and T-wave inversion in lead 3 Discharge Plan Discharge Clinical Impression: Bipolar 1 disorder, Vaginal discharge, Ovarian cyst Patient Disposition: Home, Self-Care Instructions: Ovarian Cyst (ED), Bipolar Disorder (ED), Vaginal Discharge (ED) Additional Instructions: You have a psychiatrist who prescribed her medications. The emergency department does not prescribed psychiatric medications. You need to follow-up with him for your refills This is her 2nd visit to the emergency department for similar complaints. You need to establish a primary care doctor as well as a dialysis social worker. Your ultrasound shows multiple ovarian cyst and uterine fibroid. Also shows that your IUD has moved. You need to follow-up with a dialysis social worker to address this and to have repeat ultrasound done in 6-12 weeks. We will call you if your vaginal swabs show any signs of infection need treatment Prescriptions: No Action multivitamin Tablet 1 tab PO DAILY RF: 0 divalproex [Depakote] 250 mg Tablet,Delayed Release (Dr/Ec) 250 mg PO BID RF: 0 olanzapine 10 mg Tablet 10 mg PO DAILY RF: 0 penicillin V potassium 500 mg tablet 500 mg PO Q12H 10 Days Qty: 20 RF: 0 divalproex [Depakote] 250 mg tablet,delayed release (DR/EC) 250 mg PO BID Qty: 60 RF: 0 divalproex [Depakote] 250 mg tablet,delayed release (DR/EC) 250 mg PO BID Qty: 60 RF: 0 penicillin V potassium 500 mg tablet 500 mg PO Q12H 10 Days Qty: 20 RF: 0 ciprofloxacin HCl [Cipro] 500 mg tablet 500 mg PO BID 14 Days Qty: 28 RF: 0 ciprofloxacin HCl [Cipro] 500 mg tablet 500 mg PO Q12H 7 Days Qty: 14 RF: 0 amoxicillin-pot clavulanate [Augmentin] 875-125 mg tablet 1 tab PO Q12H 7 Days Qty: 14 RF: 0 phenazopyridine [Pyridium] 100 mg tablet 200 mg PO TID PRN (Reason: pain) Qty: 10 RF: 0 divalproex [Depakote] 250 mg tablet,delayed release (DR/EC) 250 mg PO BID 30 Days Qty: 60 RF: 0 Referrals: Physician,Unknown [Primary Care Provider] - 2 days Sree Torres MD [Physician] - 2 days Interventions: ED Discharge Assessment Last Done: 10/02/20 18:12 Discharge Date/Time: 10/02/20 18:12
[2020-10-02 13:18] LABS: MANUAL DIFF FLAG NO
[2020-10-02 13:28] LABS: Basophils Percent Auto 0.3 % (0-2); Eosinophils Absolute Auto 0.2 X10*3/uL (0.0-0.4); Eosinophils Percent Auto 1.6 % (0-4); Hematocrit 40.3 % (37-47); Hemoglobin 13.3 g/dl (12.0-16.0); Imm Gran Abs Auto 0.04 X10*3/uL (0.00-0.03); Imm Gran Pct Auto 0.4 % (0.0-0.4); Lymphocytes Absolute Auto 1.4 X10*3/uL (1.2-4.9); Lymphocytes Percent Auto 12.6 % (20-40); Mean Corpuscular Hemoglobin 29.4 pg (27.0-33.0); Mean Corpuscular Volume 89.2 fL (80-98); Monocytes Percent Auto 9.5 % (2-11); Neutrophils Absolute Auto 8.3 X10*3/uL (2.0-8.3); Neutrophils Percent Auto 75.6 % (45-73); Platelet Count 240 X10*3/uL (160-400); Red Blood Count 4.52 X10*6/uL (4.20-5.50)
[2020-10-02 13:33] LABS: D Dimer 628 NG/ML
[2020-10-02 13:35] LABS: Appearance Urine HAZY; Color Urine YELLOW; Glucose Urine UA NEG (NEG); Leukocyte Esterase Urine NEG (NEG); Nitrite Urine NEG (NEG); Urine Blood NEG (NEG); Urine Ketones NEG (NEG); Urine Protein NEG (NEG-TRACE)
[2020-10-02 13:37] LABS: UPreg QC Valid YES; Urine Pregnancy NEGATIVE (NEGATIVE)
[2020-10-02 13:47] LABS: Alanine Aminotransferase 29 U/L (0-31); Albumin Level 4.5 g/dL (3.5-5.0); Alkaline Phosphatase 66 U/L (39-117); Anion Gap 13 (12-20); Aspartate Amino Transferase 24 U/L (5-31); Bilirubin Direct < 0.2 mg/dL (0.0-0.5); Bilirubin Total 0.3 mg/dL (0.0-1.0); Blood Urea Nitrogen 8 mg/dL (9-16); Calcium 9.5 mg/dL (8.4-10.2); Carbon Dioxide 26 mmol/L (22-29); Chloride 103 mmol/L (96-108); Creatinine Clr Calc Pharmacy 93.8; Estimated Glomerular Filt Rate > 60; Glucose Random 86 mg/dL (60-115); Magnesium 1.6 mg/dL (1.6-2.6); Sodium 138 mmol/L (135-145); Total Protein 7.4 g/dL (6.5-8.0)
[2020-10-02 13:51] LABS: Troponin-I High Sensitivity < 3.5 ng/L (<3.5-17.0)
[2020-10-02 15:01] LABS: CT PCR NOT DETECTED (Not Detect.); NG PCR NOT DETECTED (Not Detect.)
[2020-10-02] MEDS: iohexoL 350 MG/ML 100 ML INFUS..BTL IV (15:14)
[2020-10-02] MEDS: Acetaminophen 325 MG TABLET 650 MG PO (15:20)
[2020-10-02 15:21] VITALS: BP 132/84; PULSE 71; RESP 20; TEMP 36.8; O2SAT 98
[2020-10-02] MEDS: Fluconazole 150 MG TABLET PO (16:26)
[2020-10-02] MEDS: metroNIDAZOLE 500 MG TABLET 2000 MG PO (16:26)
--- NOTE | 2020-10-02 16:34 | PC.NURSE ---
care team at bedside.
--- NOTE | 2020-10-02 17:39 | MHC.CARE ---
CARE team consult received for pt who was seen in the ED secondary to medical complaints. Pt requested that two of her medications be refilled by the hospital, depakote and zyprexa, which she ran out of 2-3 weeks ago. Per provider report- pt has been observed to be responding in to internal stimuli. Pt has been pleasant and calm during her stay in the ED thus far. Pt denied experiencing any thoughts of suicide, self harm, harm to others, and with no recent incidences. She additionally denied experiencing hallucinations and did not present as responding to internal stimuli during the interaction. Pt has a somewhat nomadic lifestyle, stating that she stays at a usp called [facility] on [address] in [place] where she has been intermittently working with a social work specialist to get a SS card, a state ID, apply for SSI, and support with finding an apartment or a room to rent. Her primary care physician is Dr Aniya Brown at [facility] and that her psychiatrist is a Dr. Phoenix in [place]. Pt's children live with her mother in [place] and the rest of her family is in [place]. Based on history, pt will travel from [place] to [place] when she is off her medications and decompensating, otherwise will have minimal contact with family. Her current plan is to return to the [place] area tomorrow. ED provider will not be providing pt with a script for the medications she's requesting. This credit underwriter spoke with ED nurse re: contacting her pharmacy to see if there are refills left on the medications, which would be a matter of pt requesting them to be filled and picking them up (which was the situation during pt's last ED presentation in July 2020). Per ED nurse the pharmacy line for [facility] was closed and was unable to confirm. There are no safety concerns at this time and pt has a plan for returning to [place] where her psychiatric prescriber is located, planning to follow up with them.
[2020-10-03 08:47] LABS: BV Int Neg Control Negative (Negative); BV Int Pos Control Positive (Positive)
== END 2020-10-02 18:12 | disposition home or self-care (01) ==
PROVIDERS: Nurse Practitioner Family; Emergency Provider Emergency Medicine Emergency Medical Services
DX: N76.0 Acute vaginitis (principal); N83.201 Unspecified ovarian cyst, right side; N83.202 Unspecified ovarian cyst, left side; F31.9 Bipolar disorder, unspecified; R10.32 Left lower quadrant pain; R07.9 Chest pain, unspecified; Z79.899 Other long term (current) drug therapy
CPT/HCPCS: 36415; 71275; 76830; 76856; 80048; 80076; 81003; 81025; 83735; 84484; 85025; 85379; 87255; 87480; 87491; 87510; 87591; 87660; 93005; 96372; 99284; 99285; Q9967

== ENCOUNTER 2021-08-16 10:15 | Emergency (ER) | payer OTHER, SELFPAY ==
[2021-08-16 10:21] VITALS: BP 118/61; PULSE 74; RESP 16; TEMP 35.5; O2SAT 98; BMI 31.1
[2021-08-16 10:45] LABS: Appearance Urine HAZY; Color Urine YELLOW; Glucose Urine UA NEG (NEG); Leukocyte Esterase Urine NEG (NEG); Nitrite Urine NEG (NEG); Specific Gravity - Urine >= 1.030 (1.005-1.025); Urine Blood NEG (NEG); Urine Ketones NEG (NEG); Urine Protein NEG (NEG-TRACE)
[2021-08-16 10:47] LABS: UPreg QC Valid YES; Urine Pregnancy NEGATIVE (NEGATIVE)
--- NOTE | 2021-08-16 11:12 | ED_ITS ---
HPI - General Adult General Chief complaint: Nausea/Vomiting/Diarrhea Stated complaint: pregnacy test Time Seen by Provider: 08/16/21 11:11 Source: patient Mode of arrival: ambulatory Limitations: no limitations History of Present Illness HPI narrative: 41-year-old female presenting to the ER for test. She reports feeling some slight nausea and fatigue and thinks she may be . She states her last menstrual cycle was 07/24/21. She has no lower abdominal cramping, vomiting, fever, chills, vaginal discharge or concern for STI. She just moved here from [place] has no established OBGYN care. She would also like to get her Depo shot if she is not . She does not recall the last time she got it but no she has was to get every 3 months and has been much longer than that. MD complaint: Wants a test Onset (ago): unknown Severity: mild Pain Consistency: intermittent Relieving factors: none Exacerbating factors: none Associated symptoms: malaise and nausea/vomiting Treatments prior to arrival: none Related Data Home Medications Medication Instructions Recorded Confirmed divalproex 250 mg tablet,delayed 250 mg PO BID 07/29/20 07/29/20 release (Depakote) multivitamin 1 tab PO DAILY 07/29/20 07/29/20 olanzapine 10 mg tablet 10 mg PO DAILY 07/29/20 07/29/20 Previous Rx's Medication Instructions Recorded divalproex 250 mg tablet,delayed 250 mg PO BID #60 tab 08/09/20 release (Depakote) penicillin V potassium 500 mg 500 mg PO Q12H 10 Days #20 tab 08/09/20 tablet ciprofloxacin HCl 500 mg tablet 500 mg PO Q12H 7 Days #14 tab 08/13/20 (Cipro) ciprofloxacin HCl 500 mg tablet 500 mg PO BID 14 Days #28 tab 08/19/20 (Cipro) divalproex 250 mg tablet,delayed 250 mg PO BID #60 tab 08/19/20 release (Depakote) penicillin V potassium 500 mg 500 mg PO Q12H 10 Days #20 tab 08/19/20 tablet amoxicillin 875 mg-potassium 1 tab PO Q12H 7 Days #14 tab 09/14/20 clavulanate 125 mg tablet (Augmentin) divalproex 250 mg tablet,delayed 250 mg PO BID 30 Days #60 tab 09/14/20 release (Depakote) phenazopyridine 100 mg tablet 200 mg PO TID PRN #10 tab 09/14/20 (Pyridium) Allergies Allergy/AdvReac Type Severity Reaction Status Date / Time No Known Allergies Allergy Verified 07/29/20 14:35 [No Known Allergies*] Review of Systems Review of Systems: Constitutional: No Fever, No Chills, +Fatigue ENT/Mouth: No sore throat, No Rhinorrhea Cardiovascular: No Chest Pain, No SOB Respiratory: No Cough, No Sputum Gastrointestinal: + Nausea, No Vomiting, No Diarrhea, No abdominal Pain Genitourinary: No Dysuria, No Urinary Frequency, No Hematuria, NO vaginal discharge Musculoskeletal: No joint pain, No Myalgias Skin: No Skin Lesions, No rash Neuro: No Weakness, No Dizziness, No Headache Psych: + Anxiety/Panic PMFSH Past Medical History Medical History Bipolar 1 disorder Social History Social History Advance Directives: No Advance Directives Information Provided: Yes Physical Exam ED Vital Signs: Vital Signs - 24 hr 08/16/21 10:21 Temperature 96 F L Pulse Rate 74 Respiratory Rate 16 Blood Pressure 118/61 Pulse Oximetry 98 BMI result Body Mass Index 31.1 Appearance: Alert. Oriented X3. No acute distress. HEENT: normal inspection CVS: Normal heart rate and rhythm. Pulses normal. Respiratory: No respiratory distress. Skin: Skin warm and dry. Normal skin color. Normal skin turgor. No rashes. Abd: Normal inspection, soft nontender nondistended. Normal bowel sounds x4. Extremities: Normal inspection x4, normal range of motion. Neuro: Oriented X 3. No motor deficit. No sensory deficit. Course Course Course Narrative: 41-year-old female presenting to the ER for test. She feels some fatigue and a little bit of nausea and thinks she may be . She states her last menstrual period was 07/24/21. She also would like to get her Depo intramuscular control shot. She is from with certain recently moved to the area and does not have a OBGYN here. She denies any abdominal pain, cramping, spotting, vaginal discharge. Her urinalysis today is negative for infection and . At this time she was counseled to follow-up with OBGYN, given information and referral to our OBGYN to establish care here, also given information for local tapistries. Stable for d/c Medical Decision Making Lab Data Labs: Lab Results 08/16/21 08/16/21 Range/Units 10:32 10:32 Urine Color YELLOW Urine Appearance HAZY Urine pH 6.0 (5.0-8.0) Ur Specific [place] >= 1.030 H (1.005-1.025) Urine Protein NEG (NEG-TRACE) MG/DL Urine Glucose (UA) NEG (NEG) MG/DL Urine Ketones NEG (NEG) MG/DL Urine Blood NEG (NEG) Urine Nitrite NEG (NEG) Ur Leukocyte Esterase NEG (NEG) Urine Test NEGATIVE (NEGATIVE) Critical Care Time Critical Care Time Critical Care Time: No Discharge Plan Discharge Clinical Impression: Nausea Patient Disposition: Home, Self-Care Instructions: Fatigue (ED) Additional Instructions: Your urine test was negative for infection and . If you continue to feel nausea and fatigue recommend repeating test in 48 hours. These can be found at the [employer] [facility] [employer] store or at the pharmacy. Recommend following up with a OBGYN for control counseling and for administration of your Depo shot. Prescriptions: No Action multivitamin Tablet 1 tab PO DAILY 0RF divalproex [Depakote] 250 mg Tablet,Delayed Release (Dr/Ec) 250 mg PO BID 0RF olanzapine 10 mg Tablet 10 mg PO DAILY 0RF penicillin V potassium 500 mg tablet 500 mg PO Q12H 10 Days Qty: 20 0RF divalproex [Depakote] 250 mg tablet,delayed release (DR/EC) 250 mg PO BID Qty: 60 0RF divalproex [Depakote] 250 mg tablet,delayed release (DR/EC) 250 mg PO BID Qty: 60 0RF penicillin V potassium 500 mg tablet 500 mg PO Q12H 10 Days Qty: 20 0RF ciprofloxacin HCl [Cipro] 500 mg tablet 500 mg PO BID 14 Days Qty: 28 0RF ciprofloxacin HCl [Cipro] 500 mg tablet 500 mg PO Q12H 7 Days Qty: 14 0RF amoxicillin-pot clavulanate [Augmentin] 875-125 mg tablet 1 tab PO Q12H 7 Days Qty: 14 0RF phenazopyridine [Pyridium] 100 mg tablet 200 mg PO TID PRN (Reason: pain) Qty: 10 0RF divalproex [Depakote] 250 mg tablet,delayed release (DR/EC) 250 mg PO BID 30 Days Qty: 60 0RF Referrals: Sree Torres MD [Physician] - 1 week Print Language: [place]
== END 2021-08-16 11:33 | disposition home or self-care (01) ==
PROVIDERS: Emergency Provider Emergency Medicine
DX: R11.2 Nausea with vomiting, unspecified (principal); R19.7 Diarrhea, unspecified; Z79.899 Other long term (current) drug therapy
CPT/HCPCS: 81003; 81025; 99282

== ENCOUNTER 2022-03-30 01:33 | Emergency (ER) | payer OTHER, SELFPAY ==
[2022-03-30 01:42] VITALS: BP 124/75; PULSE 91; RESP 16; TEMP 36.6; O2SAT 97; BMI 29.2
[2022-03-30 02:05] LABS: MANUAL DIFF FLAG NO
[2022-03-30 02:13] LABS: Basophils Absolute Auto 0.1 X10*3/uL (0.0-0.2); Basophils Percent Auto 0.5 % (0-2); Eosinophils Absolute Auto 0.2 X10*3/uL (0.0-0.4); Eosinophils Percent Auto 1.5 % (0-4); Hematocrit 39.8 % (37.0-47.0); Hemoglobin 13.6 g/dl (12.0-16.0); Imm Gran Abs Auto 0.05 X10*3/uL (0.00-0.03); Imm Gran Pct Auto 0.3 % (0.0-0.4); Lymphocytes Absolute Auto 3.6 X10*3/uL (1.2-4.9); Lymphocytes Percent Auto 24.1 % (20-40); Mean Corpuscular HGB Conc 34.2 g/dl (31.0-35.0); Mean Corpuscular Hemoglobin 29.4 pg (27.0-33.0); Monocytes Absolute Auto 0.8 X10*3/uL (0.1-1.2); Monocytes Percent Auto 5.7 % (2-11); Neutrophils Percent Auto 67.9 % (45-73); Platelet Count 238 X10*3/uL (160-400); Red Blood Count 4.63 X10*6/uL (4.20-5.50); Red Cell Distribution Width 14.3 % (11.0-16.0); White Blood Count 14.7 X10*3/uL (4.8-10.8)
[2022-03-30 02:22] LABS: COVID-19 Test Negative (Negative); IDNOW Serial# 16C4AD1C; IDNOW Serial# BCCEAD1C; Influenza A Negative (Negative); Influenza B2 Negative (Negative)
[2022-03-30 02:29] LABS: Alanine Aminotransferase 42 U/L (0-31); Albumin Level 4.8 g/dL (3.5-5.0); Alkaline Phosphatase 66 U/L (39-117); Anion Gap 18 (12-20); Aspartate Amino Transferase 35 U/L (5-31); Bilirubin Total 0.2 mg/dL (0.0-1.0); Blood Urea Nitrogen 12 mg/dL (9-16); Calcium 10.1 mg/dL (8.4-10.2); Carbon Dioxide 23 mmol/L (22-29); Chloride 104 mmol/L (96-108); Creatinine Clr Calc Pharmacy 113.8; Estimated Glomerular Filt Rate > 60; Glucose Random 90 mg/dL (60-115); Potassium 4.3 mmol/L (3.3-5.1); Sodium 141 mmol/L (135-145); Total Protein 8.1 g/dL (6.5-8.0)
--- NOTE | 2022-03-30 03:42 | ED_ITS ---
HPI - General Adult General Chief complaint: Weakness Stated complaint: Dizziness/Back pain Time Seen by Provider: 03/30/22 03:14 Source: patient Mode of arrival: ambulatory Limitations: no limitations History of Present Illness HPI narrative: Patient homeless come here for weakness would like to sleep tonight started just half an hour before arrival no cough come multiple complaints no fever or chills no IV drugs Related Data Previous Rx's Medication Instructions Recorded amoxicillin 500 mg-potassium 1 tab PO BID #10 tabs 09/28/20 clavulanate 125 mg tablet (Augmentin) fluconazole 150 mg tablet 150 mg PO ONCE #1 tab 09/28/20 (Diflucan) ibuprofen 600 mg tablet 600 mg PO Q8H PRN pain #10 tabs 09/28/20 Allergies Allergy/AdvReac Type Severity Reaction Status Date / Time No Known Allergies Allergy Verified 09/28/20 10:39 Review of Systems Review of Systems: Yes all other systems are reviewed and are negative [facility] Social History Social History Advance Directives: No Advance Directives Information Provided: No Patient : No Physical Exam ED Vital Signs: Vital Signs - 24 hr 03/30/22 01:42 03/30/22 03:50 03/30/22 06:00 Temperature 97.8 F 98.0 F 97.9 F Pulse Rate 91 85 95 Respiratory Rate 16 16 16 Blood Pressure 124/75 105/53 L 96/47 L Pulse Oximetry 97 97 95 Oxygen Delivery Method Room Air Room Air Room Air BMI result Body Mass Index 29.2 Appearance: Alert. Oriented X3. No acute distress. Eyes: PERRLA, No Nystagmus ENT: Pharynx normal. Oral Mucosa moist Neck: Normal inspection. Neck supple. CVS: Normal heart rate and rhythm. Pulses normal. Respiratory: No respiratory distress. Equal air entry bilateral, no wheezing/rales/rhonchi Abdomen: Soft and nontender. Bowel sounds are present, no mass palpable, no CVA tenderness Skin: Skin warm and dry. Normal skin color. Normal skin turgor. Extremities: No lower extremity edema. No calf tenderness Neuro: Oriented X 3. No motor deficit. No sensory deficit.No cerebellar signs , cranial nerves II-XII intact Medical Decision Making Lab Data Lab results reviewed: Yes I reviewed the patient's lab results. Result diagrams: 03/30/22 01:47 03/30/22 01:47 Labs: Lab Results 03/30/22 03/30/22 03/30/22 Range/Units 01:47 01:47 01:47 WBC 14.7 H (4.8-10.8) X10*3/uL RBC 4.63 (4.20-5.50) X10*6/uL Hgb 13.6 (12.0-16.0) g/dl Hct 39.8 (37.0-47.0) % MCV 86.0 (80.0-98.0) fL MCH 29.4 (27.0-33.0) pg MCHC 34.2 (31.0-35.0) g/dl RDW 14.3 (11.0-16.0) % Plt Count 238 (160-400) X10*3/uL MPV 12.0 (9.4-12.3) fL Immature Gran % (Auto) 0.3 (0.0-0.4) % Neut % (Auto) 67.9 (45-73) % Lymph % (Auto) 24.1 (20-40) % [place] % (Auto) 5.7 (2-11) % Eos % (Auto) 1.5 (0-4) % Baso % (Auto) 0.5 (0-2) % Lymph # (Auto) 3.6 (1.2-4.9) X10*3/uL [place] # (Auto) 0.8 (0.1-1.2) X10*3/uL Eos # (Auto) 0.2 (0.0-0.4) X10*3/uL Baso # (Auto) 0.1 (0.0-0.2) X10*3/uL Abs Immat Gran (auto) 0.05 H (0.00-0.03) X10*3/uL Absolute Neuts (auto) 10.0 H (2.0-8.3) x10*3/uL Absolute Nucleated RBC 0.000 (0.0-0.012) X10*3/uL Nucleated RBC % (auto) 0.0 (0.0-0.2) /100WBC Sodium 141 (135-145) mmol/L Potassium 4.3 (3.3-5.1) mmol/L Chloride 104 (96-108) mmol/L Carbon Dioxide 23 (22-29) mmol/L Anion Gap 18 (12-20) BUN 12 (9-16) mg/dL Creatinine 0.68 (0.5-1.4) mg/dL Estim Creat Clear Calc 113.8 Estimated GFR > 60 POC Glucose (60-115) mg/dL Random Glucose 90 (60-115) mg/dL Calcium 10.1 (8.4-10.2) mg/dL Total Bilirubin 0.2 (0.0-1.0) mg/dL AST 35 H (5-31) U/L ALT 42 H (0-31) U/L Alkaline Phosphatase 66 (39-117) U/L Total Protein 8.1 H (6.5-8.0) g/dL Albumin 4.8 (3.5-5.0) g/dL COVID-19 (CONCEPCION) (Negative) COVID-19 Clin Com Influenza Type A (NIRMAL) Negative (Negative) Influenza Type B (NIRMAL) Negative (Negative) Influenza A & B Note See Note 03/30/22 03/30/22 Range/Units 01:47 03:49 WBC (4.8-10.8) X10*3/uL RBC (4.20-5.50) X10*6/uL Hgb (12.0-16.0) g/dl Hct (37.0-47.0) % MCV (80.0-98.0) fL MCH (27.0-33.0) pg MCHC (31.0-35.0) g/dl RDW (11.0-16.0) % Plt Count (160-400) X10*3/uL MPV (9.4-12.3) fL Immature Gran % (Auto) (0.0-0.4) % Neut % (Auto) (45-73) % Lymph % (Auto) (20-40) % [place] % (Auto) (2-11) % Eos % (Auto) (0-4) % Baso % (Auto) (0-2) % Lymph # (Auto) (1.2-4.9) X10*3/uL [place] # (Auto) (0.1-1.2) X10*3/uL Eos # (Auto) (0.0-0.4) X10*3/uL Baso # (Auto) (0.0-0.2) X10*3/uL Abs Immat Gran (auto) (0.00-0.03) X10*3/uL Absolute Neuts (auto) (2.0-8.3) x10*3/uL Absolute Nucleated RBC (0.0-0.012) X10*3/uL Nucleated RBC % (auto) (0.0-0.2) /100WBC Sodium (135-145) mmol/L Potassium (3.3-5.1) mmol/L Chloride (96-108) mmol/L Carbon Dioxide (22-29) mmol/L Anion Gap (12-20) BUN (9-16) mg/dL Creatinine (0.5-1.4) mg/dL Estim Creat Clear Calc Estimated GFR POC Glucose 114 (60-115) mg/dL Random Glucose (60-115) mg/dL Calcium (8.4-10.2) mg/dL Total Bilirubin (0.0-1.0) mg/dL AST (5-31) U/L ALT (0-31) U/L Alkaline Phosphatase (39-117) U/L Total Protein (6.5-8.0) g/dL Albumin (3.5-5.0) g/dL COVID-19 (CONCEPCION) Negative (Negative) COVID-19 Clin Com See Note Influenza Type A (NIRMAL) (Negative) Influenza Type B (NIRMAL) (Negative) Influenza A & B Note Discharge Plan Discharge Clinical Impression: Weakness Patient Disposition: Home, Self-Care Instructions: Weakness (ED) Additional Instructions: Drink plenty of fluids Stay warm Prescriptions: No Action fluconazole [Diflucan] 150 mg tablet 150 mg PO ONCE Qty: 1 0RF Rx Instructions: take on FridayOctober 01 ibuprofen 600 mg tablet 600 mg PO Q8H PRN (Reason: pain) Qty: 10 0RF amoxicillin-pot clavulanate [Augmentin] 500-125 mg tablet 1 tab PO BID Qty: 10 0RF
[2022-03-30 03:50] VITALS: BP 105/53; PULSE 85; RESP 16; TEMP 36.7; O2SAT 97
--- NOTE | 2022-03-30 03:55 | PC.NURSE ---
0400 ROUNDING DONE VS TAKEN PT HAS A [employer]UNA SANDWICH AND A DALIA BRANDIE FOR SNACK ,CALL GROSSMAN WITHIN REACH .
[2022-03-30 03:56] LABS: Glucose, Whole Blood 114 mg/dL (60-115)
[2022-03-30 06:00] VITALS: BP 96/47; PULSE 95; RESP 16; TEMP 36.6; O2SAT 95
== END 2022-03-30 06:36 | disposition home or self-care (01) ==
PROVIDERS: Emergency Provider Internal Medicine
DX: R53.1 Weakness (principal); Z20.822 Contact with and (suspected) exposure to COVID-19
CPT/HCPCS: 80053; 82947; 85025; 87502; 87635; 99283; 99284

== ENCOUNTER 2022-12-23 16:16 | Emergency (ER) | payer MEDICAID, SELFPAY ==
[2022-12-23 16:36] VITALS: BP 136/82; PULSE 76; RESP 16; TEMP 36; O2SAT 98; BMI 29.6
--- NOTE | 2022-12-23 17:23 | ED.ANIMALBIT ---
HPI - Animal Bite General Chief Complaint: Animal Bite Stated Complaint: bite by dog on the left side of face yesterday Time Seen by Provider: 12/23/22 17:22 Source: patient, RN notes reviewed and old records reviewed Mode of arrival: ambulatory History of Present Illness HPI narrative: 42-year-old female with no significant past medical history presenting to the ED complaining of dog bite to left face s/p visiting friend yesterday. States dog was being friendly with her & she went to pick it up, and then it bit her in the face around the left eye. Denies wearing glasses or contacts. Denies direct eye involvement, vision change/loss, drainage from eye, blurry vision, headache, foreign body sensation. Admits dog's vaccinations are up-to-date. Patient's vaccinations are not up-to-date. Denies injury to other area, LOC MD complaint: animal bite Onset (ago): day(s) Related Data Home Medications Medication Instructions Recorded Confirmed divalproex 250 mg tablet,delayed 250 mg PO BID 07/29/20 07/29/20 release (Depakote) multivitamin 1 tab PO DAILY 07/29/20 07/29/20 olanzapine 10 mg tablet 10 mg PO DAILY 07/29/20 07/29/20 Previous Rx's Medication Instructions Recorded divalproex 250 mg tablet,delayed 250 mg PO BID Bipolar #60 tabs 08/09/20 release (Depakote) penicillin V potassium 500 mg 500 mg PO Q12H dental pain 10 08/09/20 tablet days #20 tabs ciprofloxacin HCl 500 mg tablet 500 mg PO Q12H 7 days #14 tabs 08/13/20 (Cipro) ciprofloxacin HCl 500 mg tablet 500 mg PO BID 14 days #28 tabs 08/19/20 (Cipro) divalproex 250 mg tablet,delayed 250 mg PO BID #60 tabs 08/19/20 release (Depakote) penicillin V potassium 500 mg 500 mg PO Q12H dental pain 10 08/19/20 tablet days #20 tabs amoxicillin 875 mg-potassium 1 tab PO Q12H 7 days #14 tabs 09/14/20 clavulanate 125 mg tablet (Augmentin) divalproex 250 mg tablet,delayed 250 mg PO BID 30 days #60 tabs 09/14/20 release (Depakote) phenazopyridine 100 mg tablet 200 mg PO TID PRN pain 6 doses #10 09/14/20 (Pyridium) tabs amoxicillin 500 mg-potassium 1 tab PO BID #10 tabs 09/28/20 clavulanate 125 mg tablet (Augmentin) fluconazole 150 mg tablet 150 mg PO ONCE #1 tab 09/28/20 (Diflucan) ibuprofen 600 mg tablet 600 mg PO Q8H PRN pain #10 tabs 09/28/20 amoxicillin 875 mg-potassium 1 tab PO BID 7 days #14 tabs 12/23/22 clavulanate 125 mg tablet Allergies Allergy/AdvReac Type Severity Reaction Status Date / Time No Known Allergies Allergy Verified 06/26/22 15:26 [No Known Allergies*] Review of Systems Review of Systems: Constitutional: No Fever, No Chills, No Fatigue, No Malaise ENT/Mouth: No Hearing loss, No Ear Pain Eyes: + Eye Pain, + Swelling,+ Redness, No Foreign Body, No Discharge, No Vision Changes Cardiovascular: No Chest Pain, No SOB Respiratory: No Cough, No Sputum, No Dyspnea Gastrointestinal: No Nausea, No Vomiting, No Diarrhea, No Constipation, No Abdominal pain Musculoskeletal: No joint pain, No Myalgias, No Joint Swelling Skin: No Skin Lesions, No rash Neuro: No Weakness, No Loss of Consciousness, No Dizziness, No Headache Yes all other systems are reviewed and are negative Constitutional: Constitutional: Reports as per [facility] Past Medical History Attestation statement: The following information was validated with the patient. Source: old records reviewed Medical History Bipolar 1 disorder Social History Social History Advance Directives: No Advance Directives Information Provided: No Physical Exam ED Vital Signs: Vital Signs - 24 hr 12/23/22 16:36 Temperature 96.8 F Pulse Rate 76 Respiratory Rate 16 Blood Pressure 136/82 Pulse Oximetry 98 Oxygen Delivery Method Room Air BMI result Body Mass Index 29.6 Const General: cooperative, healthy appearing and no acute distress Orientation/consciousness: patient oriented x3 Limitations: no limitations HENMT Head: Yes normal to inspection and Yes atraumatic Ears: hearing grossly normal bilaterally and external ears normal General nose exam: Normal external nose present Eyes Other: + left eye with periorbital swelling and ecchymosis. Superficial laceration noted to left upper eyelid not requiring repair. Small puncture wound noted lateral to lateral canthus no appreciable ocular involvement. EOMs intact without entrapment. No fluorescein uptake or ulceration/abrasion General: appearance normal, both eyes and all related structures Sclerae: sclerae normal Corneas: corneas normal and fluorescein used (without uptake) Pupils: Equal, round and reactive pupils present EOM: EOMs intact bilaterally and no movement deficit Direct Ophthalmoscopy: normal light reflex and no photophobia Neck Neck: Yes normal visual inspection, Yes no meningeal signs and No anterior neck swelling Resp Effort & Inspection: normal respiratory effort and no respiratory distress Cardio Rate: regular rate Skin Rashes: no rashes Neuro General: patient oriented x3, tone normal and no meningeal signs Cranial nerves: Yes CN's II-XII intact bilaterally and Yes Equal, round and reactive pupils present Gait exam (Neuro): Normal gait present Extrem General: Yes normal to inspection Medications Administered Discontinued Medications Generic Name Dose Route Start Last Admin Trade Name Freq PRN Reason Stop Dose Admin Diphtheria/Tetanus/Acell Pertussis 0.5 ml 12/23/22 17:51 12/23/22 18:08 Diphth,Pertus(Acell),Tet Adult 0.5 Ml Syringe IM 12/23/22 17:52 0.5 ml .ONCE ONE Administration Fluorescein Sodium 1 strip 12/23/22 17:51 12/23/22 18:15 Fluorescein Sodium Strip EYE-LEFT 12/23/22 17:52 1 strip ONCE ONE Administration Tetracaine HCl 1 drop 12/23/22 17:51 12/23/22 18:14 Tetracaine Hcl/Pf 0.5% Oph Leigh 4 Ml Drops EYE-LEFT 12/23/22 17:52 1 drop ONCE ONE Administration Medical Decision Making Medical Decision Making MDM Narrative: 42-year-old female with no significant past medical history presenting to the ED complaining of dog bite to left face s/p visiting friend yesterday. On exam vital signs stable, NAD, nontoxic appearing, physical exam as noted above with left periorbital ecchymosis/swelling and superficial laceration to left upper eyelid, not through and through, not requiring suture repair, small puncture wound also noted. No appreciable ocular involvement, no foreign body/abrasions/ulcerations or evidence of preseptal/septal cellulitis. No evidence of blowout fracture. Plan: Visual acuity, fluorescein staining, update tetanus, Augmentin Please refer to course for remaining clinical decision making, interpretation of labs/imaging results, and discussions with consultants and/or family members. Differential Diagnosis Differential Diagnoses: The differential diagnosis associated with the presentation includes As above External Record Review External record reviewed: Inpatient record, Office record, Outpatient record, Prior outpatient labs, Prior outpatient radiology, Primary care record and Outside ED record Tests considered The following testing was considered but not selected: As above Prescription Management I considered prescription management with: Pain Medication and Antibiotic Discharge Plan Discharge Clinical Impression: Dog bite Patient Disposition: Home, Self-Care Instructions: Animal Bite (ED) Additional Instructions: Augmentin is an antibiotic please take as prescribed. Keep a close eye on your dog bite as the skin get infected easily I would expect to swelling and bruising to worsen before it improves Likely did not have any scratches on your eye, follow-up with his doctor and Ophthalmology as needed a If symptoms persist or worsen, area begins to look infected, he developed any vision loss return to the emergency department Your tetanus was updated today which is good for 10 years Augmentin es un antibi?miko, t?parks seg?n lo prescrito. Vigile de cerca la mordedura de barillas thomas ya que la piel se infecta f?cilmente Esperar?a que la hinchaz?n y los moretones empeoraran antes de mejorar Probablemente no ten?a ernestina?n rasgu?o en el lance, seguimiento con barillas m?dico y Oftalmolog?a seg?n sea necesario. Si los s?ntomas persisten o empeoran, el ?fabien comienza a lucir infectada, desarroll? p?rdida de visi?n, regrese al departamento de emergencias. Barillas t?tanos se actualiz? hoy, lo cual es v?lido por 10 a?os. Prescriptions: New amoxicillin-pot clavulanate 875-125 mg tablet 1 tab PO BID 7 Days Qty: 14 0RF No Action multivitamin Tablet 1 tab PO DAILY divalproex [Depakote] 250 mg Tablet,Delayed Release (Dr/Ec) 250 mg PO BID olanzapine 10 mg Tablet 10 mg PO DAILY fluconazole [Diflucan] 150 mg tablet 150 mg PO ONCE Qty: 1 0RF Rx Instructions: take on FridayOctober 01 ibuprofen 600 mg tablet 600 mg PO Q8H PRN (Reason: pain) Qty: 10 0RF amoxicillin-pot clavulanate [Augmentin] 500-125 mg tablet 1 tab PO BID Qty: 10 0RF penicillin V potassium 500 mg tablet 500 mg PO Q12H 10 Days Qty: 20 0RF divalproex [Depakote] 250 mg tablet,delayed release (DR/EC) 250 mg PO BID Qty: 60 0RF divalproex [Depakote] 250 mg tablet,delayed release (DR/EC) 250 mg PO BID Qty: 60 0RF penicillin V potassium 500 mg tablet 500 mg PO Q12H 10 Days Qty: 20 0RF ciprofloxacin HCl [Cipro] 500 mg tablet 500 mg PO BID 14 Days Qty: 28 0RF ciprofloxacin HCl [Cipro] 500 mg tablet 500 mg PO Q12H 7 Days Qty: 14 0RF amoxicillin-pot clavulanate [Augmentin] 875-125 mg tablet 1 tab PO Q12H 7 Days Qty: 14 0RF phenazopyridine [Pyridium] 100 mg tablet 200 mg PO TID PRN (Reason: pain) Qty: 10 0RF divalproex [Depakote] 250 mg tablet,delayed release (DR/EC) 250 mg PO BID 30 Days Qty: 60 0RF Referrals: [facility] [Primary Care Provider] - 1 week Interventions: ED Discharge Assessment Last Done: 12/23/22 18:28 Discharge Date/Time: 12/23/22 18:28 Print Language: Urdu
[2022-12-23] MEDS: Diphth,Pertus(ACell),Tet Adult 0.5 ML SYRINGE IM (18:08)
[2022-12-23] MEDS: Tetracaine HCl/PF 0.5% Oph Sol 4 ML DROPS 1 DROP EYE-LEFT (18:14)
[2022-12-23] MEDS: Fluorescein Sodium STRIP 1 STRIP EYE-LEFT (18:15)
== END 2022-12-23 18:28 | disposition home or self-care (01) ==
PROVIDERS: Emergency Provider Internal Medicine
DX: S00.81XA Abrasion of other part of head, initial encounter (principal); W54.0XXA Bitten by dog, initial encounter; Y93.9 Activity, unspecified; Y92.9 Unspecified place or not applicable; Y99.9 Unspecified external cause status; Z79.899 Other long term (current) drug therapy; Z23 Encounter for immunization
CPT/HCPCS: 90471; 90715; 99282; 99284

== ENCOUNTER 2023-01-08 14:09 | Emergency (ER) | payer MEDICAID, SELFPAY ==
--- NOTE | ~2023-01-08 | XR_ITS ---
EXAMINATION: XR CHEST CLINICAL INFORMATION: Arm pain COMPARISON: 09/14/2020 TECHNIQUE: 2 views of the chest were obtained. FINDINGS: Lungs are well-inflated and clear. Trachea is midline in position. No interstitial disease, consolidation or mass. No pleural effusion or pneumothorax. Cardiac silhouette and pulmonary vessels are normal in size. The mediastinum and karuna have normal contour. The visualized bones and upper abdomen are unremarkable. XR/XR chest 2V IMPRESSION: No acute cardiopulmonary abnormality.
--- NOTE | 2023-01-08 15:15 | ED.GENADULT ---
HPI - General Adult General Chief complaint: Extremity Problem Stated complaint: arm numbness Time Seen by Provider: 01/08/23 17:24 Source: patient Mode of arrival: ambulatory Limitations: no limitations History of Present Illness HPI narrative: 42-year-old female with history of bipolar disorder, anxiety, right-hand dominant presents to the ER for evaluation of right distal upper arm pain and heaviness that started when she woke up at noon today. She went to bed at 05:00 and woke up 7 hours later with severe pain and heaviness of the right arm. She reports it is worse with flexion and abduction of the arm. She denies any neck pain. No radiation distally. No numbness or tingling in the hand or forearm. No complaints in the lower extremities. No headache. MD complaint: Right upper extremity pain and heaviness Onset (ago): hour(s) Location: right and upper extremity Radiation: non-radiation Severity: moderate Severity scale (1-10): 7 Quality: aching and other (Heaviness) Pain Consistency: constant Relieving factors: immobilization Exacerbating factors: movement Associated symptoms: denies other symptoms Treatments prior to arrival: none Related Data Home Medications Medication Instructions Recorded Confirmed divalproex 250 mg tablet,delayed 250 mg PO BID 07/29/20 07/29/20 release (Depakote) multivitamin 1 tab PO DAILY 07/29/20 07/29/20 olanzapine 10 mg tablet 10 mg PO DAILY 07/29/20 07/29/20 Previous Rx's Medication Instructions Recorded divalproex 250 mg tablet,delayed 250 mg PO BID Bipolar #60 tabs 08/09/20 release (Depakote) penicillin V potassium 500 mg 500 mg PO Q12H dental pain 10 08/09/20 tablet days #20 tabs ciprofloxacin HCl 500 mg tablet 500 mg PO Q12H 7 days #14 tabs 08/13/20 (Cipro) ciprofloxacin HCl 500 mg tablet 500 mg PO BID 14 days #28 tabs 08/19/20 (Cipro) divalproex 250 mg tablet,delayed 250 mg PO BID #60 tabs 08/19/20 release (Depakote) penicillin V potassium 500 mg 500 mg PO Q12H dental pain 10 08/19/20 tablet days #20 tabs amoxicillin 875 mg-potassium 1 tab PO Q12H 7 days #14 tabs 09/14/20 clavulanate 125 mg tablet (Augmentin) divalproex 250 mg tablet,delayed 250 mg PO BID 30 days #60 tabs 09/14/20 release (Depakote) phenazopyridine 100 mg tablet 200 mg (2 x 100 mg) PO TID PRN 09/14/20 (Pyridium) pain 6 doses #10 tabs amoxicillin 500 mg-potassium 1 tab PO BID #10 tabs 09/28/20 clavulanate 125 mg tablet (Augmentin) fluconazole 150 mg tablet 150 mg PO ONCE #1 tab 09/28/20 (Diflucan) ibuprofen 600 mg tablet 600 mg PO Q8H PRN pain #10 tabs 09/28/20 amoxicillin 875 mg-potassium 1 tab PO BID 7 days #14 tabs 12/23/22 clavulanate 125 mg tablet cyclobenzaprine 10 mg tablet 10 mg PO TID PRN muscle spasm #14 01/08/23 tabs ibuprofen 600 mg tablet 600 mg PO Q8H PRN pain #14 tabs 01/08/23 Allergies Allergy/AdvReac Type Severity Reaction Status Date / Time No Known Allergies Allergy Verified 01/08/23 15:15 [No Known Allergies*] Review of Systems Review of Systems: Yes all other systems are reviewed and are negative [facility] Past Medical History Medical History Bipolar 1 disorder Social History Social History Alcohol intake: never Smoked in Last 30 Days: No Use of substances other than those prescribed or required for medical reasons: No Advance Directives: No Advance Directives Information Provided: Yes Physical Exam ED Vital Signs: Vital Signs - 24 hr 01/08/23 15:16 01/08/23 18:18 Temperature 97.9 F Pulse Rate 70 57 Respiratory Rate 18 16 Blood Pressure 129/86 143/88 H Pulse Oximetry 98 96 Oxygen Delivery Method Room Air Room Air BMI result Body Mass Index 31.3 Appearance: Alert. Oriented X3. No acute distress. Head: normocephalic, atraumatic. Eyes: Pupils equal, round and reactive to light. ENT: Pharynx normal. No tonsillar swelling or exudate. Neck: Normal inspection. Neck supple. CVS: Normal heart rate and rhythm. Pulses normal. Respiratory: No respiratory distress. Breath sounds normal. Abdomen: Soft and nontender. +BS x4 Skin: Skin warm and dry. Normal skin color. Normal skin turgor. No rashes. Extremities: No lower extremity edema. No joint swelling. Right upper extremity held in flexion and adduction. There is soft tissue tenderness of the distal upper arm. Tenderness of the elbow. Pain with abduction past 45 degrees. Nontender shoulder, nontender forearm and wrist. Equal benzene washer strength bilaterally. No sensory deficits Neuro/psych: Oriented X 3. No motor deficit. No sensory deficit. CN II-XII intact. Normal speech and cognition. Course Course Course Narrative: This is a rapid medical exam. Deferred additional HPi, ROS, PE to primary provider. 42yo female with history of bipolar disorder, anxiety here with complaints of right arm heaviness/pain noted when waking up today at 12pm. Went to bed at 0500. No known injury or trauma. Will check labs, EKG, CXR. VSS Medications Administered Discontinued Medications Generic Name Dose Route Start Last Admin Trade Name Edison PRN Reason Stop Dose Admin Acetaminophen 975 mg 01/08/23 17:58 01/08/23 18:19 Acetaminophen 325 Mg Tablet PO 01/08/23 17:59 975 mg ONCE ONE Administration Ibuprofen 600 mg 01/08/23 17:58 01/08/23 18:19 Ibuprofen 600 Mg Tablet PO 01/08/23 17:59 600 mg ONCE ONE Administration Oxycodone HCl 5 mg 01/08/23 17:58 01/08/23 18:19 Oxycodone Hcl Immed Release 5 Mg Tablet PO 01/08/23 17:59 5 mg ONCE ONE Administration Medical Decision Making Medical Decision Making [facility] Narrative: 42-year-old [id number] female with history of anxiety and bipolar presents to the ER for evaluation right arm numbness and pain that she woke up with a few hours ago. Exam is most consistent with musculoskeletal pain. She reports it feels heavy due to the pain. Not numb or tingly. She has pain with range of motion and abduction. Possible pinched nerve due to the way she was sleeping. Will treat with muscle relaxers and NSAIDs. Patient requesting sling for comfort. Discussed limitations of sling. Stable for discharge home with outpatient follow-up. Patient agrees with plan. Differential Diagnosis Differential Diagnoses: The differential diagnosis associated with the presentation includes Pinched nerve, muscular strain and spasm, bursitis, no evidence of CVA or acute deficit Lab Data MDM Lab Attestation statement: I reviewed the patient's lab results. Chronic leukocytosis, no evidence of acute infection 01/08/23 16:05 01/08/23 16:05 Labs: Lab Results 01/08/23 Range/Units 16:05 WBC 12.5 H (4.8-10.8) X10*3/uL RBC 4.39 (4.20-5.50) X10*6/uL Hgb 13.1 (12.0-16.0) g/dl Hct 39.4 (37.0-47.0) % MCV 89.7 (80.0-98.0) fL MCH 29.8 (27.0-33.0) pg MCHC 33.2 (31.0-35.0) g/dl RDW 14.5 (11.0-16.0) % Plt Count 304 D (160-400) X10*3/uL MPV 10.7 (9.4-12.3) fL Immature Gran % (Auto) 0.6 H (0.0-0.4) % Neut % (Auto) 55.7 (45-73) % Lymph % (Auto) 27.9 (20-40) % [place] % (Auto) 9.6 (2-11) % Eos % (Auto) 5.6 H (0-4) % Baso % (Auto) 0.6 (0-2) % Lymph # (Auto) 3.5 (1.2-4.9) X10*3/uL [place] # (Auto) 1.2 (0.1-1.2) X10*3/uL Eos # (Auto) 0.7 H (0.0-0.4) X10*3/uL Baso # (Auto) 0.1 (0.0-0.2) X10*3/uL Abs Immat Gran (auto) 0.07 H (0.00-0.03) X10*3/uL Absolute Neuts (auto) 7.0 (2.0-8.3) x10*3/uL Absolute Nucleated RBC 0.000 (0.0-0.012) X10*3/uL Nucleated RBC % (auto) 0.0 (0.0-0.2) /100WBC PT 10.5 L (11.1-13.3) SEC INR 0.9 (0.9-1.1) Sodium 141 (135-145) mmol/L Potassium 4.4 (3.3-5.1) mmol/L Chloride 105 (96-108) mmol/L Carbon Dioxide 27 (22-29) mmol/L Anion Gap 13 (12-20) BUN 10 (9-16) mg/dL Creatinine 0.74 (0.5-1.4) mg/dL Estim Creat Clear Calc 97.5 Estimated GFR > 60 Random Glucose 83 (60-115) mg/dL Calcium 9.8 (8.4-10.2) mg/dL Magnesium 1.8 (1.6-2.6) mg/dL Total Bilirubin 0.1 (0.0-1.0) mg/dL Direct Bilirubin < 0.2 (0.0-0.5) mg/dL AST 23 (5-31) U/L ALT 29 (0-31) U/L Alkaline Phosphatase 58 (39-117) U/L Troponin I High Sens < 2.7 (<3.5-17.0) ng/L Total Protein 7.1 (6.5-8.0) g/dL Albumin 4.2 (3.5-5.0) g/dL Independent Interpretation I performed an independent interpretation of an: EKG Interpretation: EKG with normal sinus rhythm, ventricular rate 60 beats per minute, normal QTC, normal [place] interval, no change from prior 2020 External Record Review External record reviewed: Outpatient record and Prior outpatient labs Prescription Management I considered prescription management with: Pain Medication Critical Care Time Critical Care Time Critical Care Time: No Discharge Plan Discharge Clinical Impression: Musculoskeletal pain of right upper extremity Patient Disposition: Home, Self-Care Instructions: Arm Pain (ED) Additional Instructions: Your workup today was unremarkable. Your pain is most likely muscular or possibly from a nerve impingement. This should get better with time, rest, ice, elevation. Take the prescribed medications as needed for muscle spasm and pain. Recommend following up with your primary care doctor. If you develop new or worsening symptoms call 911 or come back to the ER for further evaluation. Prescriptions: New cyclobenzaprine 10 mg tablet 10 mg PO TID PRN (Reason: muscle spasm) Qty: 14 0RF ibuprofen 600 mg tablet 600 mg PO Q8H PRN (Reason: pain) Qty: 14 0RF No Action multivitamin Tablet 1 tab PO DAILY divalproex [Depakote] 250 mg Tablet,Delayed Release (Dr/Ec) 250 mg PO BID olanzapine 10 mg Tablet 10 mg PO DAILY fluconazole [Diflucan] 150 mg tablet 150 mg PO ONCE Qty: 1 0RF Rx Instructions: take on FridayOctober 01 ibuprofen 600 mg tablet 600 mg PO Q8H PRN (Reason: pain) Qty: 10 0RF amoxicillin-pot clavulanate [Augmentin] 500-125 mg tablet 1 tab PO BID Qty: 10 0RF penicillin V potassium 500 mg tablet 500 mg PO Q12H 10 Days Qty: 20 0RF divalproex [Depakote] 250 mg tablet,delayed release (DR/EC) 250 mg PO BID Qty: 60 0RF divalproex [Depakote] 250 mg tablet,delayed release (DR/EC) 250 mg PO BID Qty: 60 0RF penicillin V potassium 500 mg tablet 500 mg PO Q12H 10 Days Qty: 20 0RF ciprofloxacin HCl [Cipro] 500 mg tablet 500 mg PO BID 14 Days Qty: 28 0RF ciprofloxacin HCl [Cipro] 500 mg tablet 500 mg PO Q12H 7 Days Qty: 14 0RF amoxicillin-pot clavulanate [Augmentin] 875-125 mg tablet 1 tab PO Q12H 7 Days Qty: 14 0RF phenazopyridine [Pyridium] 100 mg tablet 200 mg PO TID PRN (Reason: pain) Qty: 10 0RF divalproex [Depakote] 250 mg tablet,delayed release (DR/EC) 250 mg PO BID 30 Days Qty: 60 0RF amoxicillin-pot clavulanate 875-125 mg tablet 1 tab PO BID 7 Days Qty: 14 0RF Interventions: ED Discharge Assessment Last Done: 01/08/23 18:54 Discharge Date/Time: 01/08/23 18:35
[2023-01-08 15:16] VITALS: BP 129/86; PULSE 70; RESP 18; TEMP 36.6; O2SAT 98; BMI 31.3
--- NOTE | 2023-01-08 15:19 | ECG_ITS ---
Test Reason : RT ARM NUMBNESS Blood Pressure : / mmHG Vent. Rate : 060 BPM Atrial Rate : 060 BPM P-R Int : 148 ms QRS Dur : 074 ms QT Int : 380 ms P-R-T Axes : 038 015 011 degrees QTc Int : 380 ms Normal sinus rhythm Minimal voltage criteria for LVH, may be normal variant ( R in aVL ) Borderline ECG When compared with ECG of 02-OCT-2020 12:25, No significant change was found Referred By: Joya Saha Electronically Signed By:MELITON PASCUAL
[2023-01-08 16:16] LABS: MANUAL DIFF FLAG NO
[2023-01-08 16:17] LABS: Basophils Absolute Auto 0.1 X10*3/uL (0.0-0.2); Basophils Percent Auto 0.6 % (0-2); Eosinophils Absolute Auto 0.7 X10*3/uL (0.0-0.4); Eosinophils Percent Auto 5.6 % (0-4); Hematocrit 39.4 % (37.0-47.0); Hemoglobin 13.1 g/dl (12.0-16.0); Imm Gran Abs Auto 0.07 X10*3/uL (0.00-0.03); Imm Gran Pct Auto 0.6 % (0.0-0.4); Lymphocytes Absolute Auto 3.5 X10*3/uL (1.2-4.9); Lymphocytes Percent Auto 27.9 % (20-40); Mean Corpuscular HGB Conc 33.2 g/dl (31.0-35.0); Mean Corpuscular Hemoglobin 29.8 pg (27.0-33.0); Mean Corpuscular Volume 89.7 fL (80.0-98.0); Mean Platelet Volume 10.7 fL (9.4-12.3); Monocytes Absolute Auto 1.2 X10*3/uL (0.1-1.2); Monocytes Percent Auto 9.6 % (2-11); Neutrophils Percent Auto 55.7 % (45-73); Platelet Count 304 X10*3/uL (160-400); Red Blood Count 4.39 X10*6/uL (4.20-5.50); Red Cell Distribution Width 14.5 % (11.0-16.0); White Blood Count 12.5 X10*3/uL (4.8-10.8)
[2023-01-08 16:23] LABS: INTERNATIONAL NORM RATIO 0.9 (0.9-1.1); Prothrombin Time 10.5 SEC (11.1-13.3)
[2023-01-08 16:42] LABS: Alanine Aminotransferase 29 U/L (0-31); Albumin Level 4.2 g/dL (3.5-5.0); Alkaline Phosphatase 58 U/L (39-117); Anion Gap 13 (12-20); Aspartate Amino Transferase 23 U/L (5-31); Bilirubin Direct < 0.2 mg/dL (0.0-0.5); Bilirubin Total 0.1 mg/dL (0.0-1.0); Blood Urea Nitrogen 10 mg/dL (9-16); Calcium 9.8 mg/dL (8.4-10.2); Carbon Dioxide 27 mmol/L (22-29); Chloride 105 mmol/L (96-108); Creatinine Clr Calc Pharmacy 97.5; Estimated Glomerular Filt Rate > 60; Glucose Random 83 mg/dL (60-115); Magnesium 1.8 mg/dL (1.6-2.6); Potassium 4.4 mmol/L (3.3-5.1); Sodium 141 mmol/L (135-145); Total Protein 7.1 g/dL (6.5-8.0)
[2023-01-08 16:55] LABS: Troponin-I High Sensitivity < 2.7 ng/L (<3.5-17.0)
[2023-01-08 18:18] VITALS: BP 143/88; PULSE 57; RESP 16; O2SAT 96
[2023-01-08] MEDS: Acetaminophen 325 MG TABLET 975 MG PO (18:19)
[2023-01-08] MEDS: oxyCODONE HCl Immed Release 5 MG TABLET PO (18:19)
[2023-01-08] MEDS: Ibuprofen 600 MG TABLET PO (18:19)
== END 2023-01-08 18:35 | disposition home or self-care (01) ==
PROVIDERS: Nurse Practitioner Family; Emergency Provider Student in an Organized Health Care Education/Training Program
DX: M79.621 Pain in right upper arm (principal); M79.18 Myalgia, other site; Z79.899 Other long term (current) drug therapy
CPT/HCPCS: 36415; 71046; 80048; 80076; 83735; 84484; 85025; 85610; 93005; 99283; 99285

== ENCOUNTER 2023-02-18 19:00 | Outpatient (REF) | payer MEDICAID, SELFPAY ==
[2023-02-19 04:03] LABS: CT PCR NOT DETECTED (Not Detect.); NG PCR NOT DETECTED (Not Detect.)
[2023-02-19 12:59] LABS: BV Int Neg Control Negative (Negative)
[2023-02-19 13:00] LABS: BV Int Pos Control Positive (Positive)
== END 2023-02-18 19:01 | disposition home or self-care (01) ==
LOC: HO.HHCLNP 19:00
PROVIDERS: Visit Provider Internal Medicine Geriatric Medicine
DX: N89.8 Other specified noninflammatory disorders of vagina (principal)
CPT/HCPCS: 0353U; 87480; 87510; 87660

== ENCOUNTER 2023-02-25 13:51 | Emergency (ER) | payer MEDICAID, SELFPAY ==
[2023-02-25 14:17] VITALS: BP 123/54; PULSE 83; RESP 20; TEMP 36.4; O2SAT 99; BMI 29.8
--- NOTE | 2023-02-25 14:20 | ED.GENADULT ---
HPI - General Adult General Chief complaint: Skin/Abscess/Foreign Body Stated complaint: Vaginal itching Time Seen by Provider: 02/25/23 18:39 Source: patient Mode of arrival: ambulatory Limitations: no limitations History of Present Illness HPI narrative: Headache occasionally get UTI complaints of urinary frequency burning sensation and itching around the vaginal area patient was seen at [facility] 1 week ago was started on Macrobid and was given 1 dose of Diflucan no vaginal discharge fever no chills no nausea no vomit patient has a complaint of hemorrhoids and chronic gastritis Related Data Home Medications Medication Instructions Recorded Confirmed divalproex 250 mg tablet,delayed 250 mg PO BID 07/29/20 07/29/20 release (Depakote) multivitamin 1 tab PO DAILY 07/29/20 07/29/20 olanzapine 10 mg tablet 10 mg PO DAILY 07/29/20 07/29/20 Previous Rx's Medication Instructions Recorded divalproex 250 mg tablet,delayed 250 mg PO BID Bipolar #60 tabs 08/09/20 release (Depakote) penicillin V potassium 500 mg 500 mg PO Q12H dental pain 10 08/09/20 tablet days #20 tabs ciprofloxacin HCl 500 mg tablet 500 mg PO Q12H 7 days #14 tabs 08/13/20 (Cipro) ciprofloxacin HCl 500 mg tablet 500 mg PO BID 14 days #28 tabs 08/19/20 (Cipro) divalproex 250 mg tablet,delayed 250 mg PO BID #60 tabs 08/19/20 release (Depakote) penicillin V potassium 500 mg 500 mg PO Q12H dental pain 10 08/19/20 tablet days #20 tabs amoxicillin 875 mg-potassium 1 tab PO Q12H 7 days #14 tabs 09/14/20 clavulanate 125 mg tablet (Augmentin) divalproex 250 mg tablet,delayed 250 mg PO BID 30 days #60 tabs 09/14/20 release (Depakote) phenazopyridine 100 mg tablet 200 mg (2 x 100 mg) PO TID PRN 09/14/20 (Pyridium) pain 6 doses #10 tabs amoxicillin 500 mg-potassium 1 tab PO BID #10 tabs 09/28/20 clavulanate 125 mg tablet (Augmentin) fluconazole 150 mg tablet 150 mg PO ONCE #1 tab 09/28/20 (Diflucan) ibuprofen 600 mg tablet 600 mg PO Q8H PRN pain #10 tabs 09/28/20 amoxicillin 875 mg-potassium 1 tab PO BID 7 days #14 tabs 12/23/22 clavulanate 125 mg tablet cyclobenzaprine 10 mg tablet 10 mg PO TID PRN muscle spasm #14 01/08/23 tabs ibuprofen 600 mg tablet 600 mg PO Q8H PRN pain #14 tabs 01/08/23 cefuroxime axetil 250 mg tablet 250 mg PO BID 7 days #14 tabs 02/25/23 diphenhydramine HCl 25 mg capsule 25 mg PO TID PRN itching #30 caps 02/25/23 (Benadryl) hydrocortisone acetate 25 mg 25 mg [place] BID #12 ea 02/25/23 rectal suppository (Anusol-HC) metronidazole 500 mg tablet 500 mg PO BID 7 days #14 tabs 02/25/23 sucralfate 1 gram tablet 1 g PO TID #90 tabs 02/25/23 Allergies Allergy/AdvReac Type Severity Reaction Status Date / Time No Known Allergies Allergy Verified 02/25/23 17:27 [No Known Allergies*] Review of Systems Review of Systems: Yes all other systems are reviewed and are negative [facility] Past Medical History Medical History Bipolar 1 disorder Social History Social History Alcohol intake: never Advance Directives: No Advance Directives Information Provided: No Physical Exam ED Vital Signs: Vital Signs - 24 hr 02/25/23 14:17 Temperature 97.5 F Pulse Rate 83 Respiratory Rate 20 Blood Pressure 123/54 L Pulse Oximetry 99 Oxygen Delivery Method Room Air BMI result Body Mass Index 29.8 Appearance: Alert. Oriented X3. No acute distress. Neck: Normal inspection. Neck supple. CVS: Normal heart rate and rhythm. Pulses normal. Respiratory: No respiratory distress. Equal air entry bilateral, Abdomen: Soft and nontender. Bowel sounds are present,s Skin: Skin warm and dry. Normal skin color. Normal skin turgor. Extremities: No lower extremity edema. No calf tenderness Neuro: Oriented X 3. Course Reevaluation(s) Reevaluation #1: Patient complains of vaginal rash that is itchy and burning as well as some bleeding in the stool and as well as some burning with urination Also complains of intermittent epigastric pain Labs and urine are sent This is rapid medical exam pending full evaluation by ER provider Medications Administered Discontinued Medications Generic Name Dose Route Start Last Admin Trade Name Edison PRN Reason Stop Dose Admin Cefuroxime Axetil 250 mg 02/25/23 18:39 02/25/23 18:56 Cefuroxime Axetil 250 Mg Tablet PO 02/25/23 18:40 250 mg ONCE ONE Administration Medical Decision Making Medical Decision Making [facility] Narrative: Patient urine culture was checked which was done on 02/18 showed trichomoniasis will treat with Flagyl along with his Ceftin for UTI Differential Diagnosis Differential Diagnoses: The differential diagnosis associated with the presentation includes STI/UTI Lab Data [facility] Lab Attestation statement: I reviewed the patient's lab results. 02/25/23 14:33 02/25/23 14:33 Labs: Lab Results 02/25/23 02/25/23 02/25/23 Range/Units 14:33 14:37 14:38 WBC 12.7 H (4.8-10.8) X10*3/uL RBC 4.46 (4.20-5.50) X10*6/uL Hgb 13.4 (12.0-16.0) g/dl Hct 39.6 (37.0-47.0) % MCV 88.8 (80.0-98.0) fL MCH 30.0 (27.0-33.0) pg MCHC 33.8 (31.0-35.0) g/dl RDW 14.6 (11.0-16.0) % Plt Count 270 (160-400) X10*3/uL MPV 11.0 (9.4-12.3) fL Immature Gran % (Auto) 0.3 (0.0-0.4) % Neut % (Auto) 63.3 (45-73) % Lymph % (Auto) 22.3 (20-40) % [place] % (Auto) 8.6 (2-11) % Eos % (Auto) 5.1 H (0-4) % Baso % (Auto) 0.4 (0-2) % Lymph # (Auto) 2.8 (1.2-4.9) X10*3/uL [place] # (Auto) 1.1 (0.1-1.2) X10*3/uL Eos # (Auto) 0.7 H (0.0-0.4) X10*3/uL Baso # (Auto) 0.1 (0.0-0.2) X10*3/uL Abs Immat Gran (auto) 0.04 H (0.00-0.03) X10*3/uL Absolute Neuts (auto) 8.1 (2.0-8.3) x10*3/uL Absolute Nucleated RBC 0.000 (0.0-0.012) X10*3/uL Nucleated RBC % (auto) 0.0 (0.0-0.2) /100WBC Sodium 139 (135-145) mmol/L Potassium 3.8 (3.3-5.1) mmol/L Chloride 103 (96-108) mmol/L Carbon Dioxide 25 (22-29) mmol/L Anion Gap 15 (12-20) BUN 11 (9-16) mg/dL Creatinine 0.77 (0.5-1.4) mg/dL Estim Creat Clear Calc 91.4 Estimated GFR > 60 Random Glucose 80 (60-115) mg/dL Calcium 10.0 (8.4-10.2) mg/dL Total Bilirubin 0.2 (0.0-1.0) mg/dL Direct Bilirubin < 0.2 (0.0-0.5) mg/dL AST 21 (5-31) U/L ALT 23 (0-31) U/L Alkaline Phosphatase 65 (39-117) U/L Total Protein 7.8 (6.5-8.0) g/dL Albumin 4.4 (3.5-5.0) g/dL Lipase 18 (8-78) U/L Urine Color Yellow Urine Appearance Clear Urine pH 7.0 (5.0-9.0) Ur Specific [place] <= 1.005 (1.005-1.025) Urine Protein Negative (Neg-Trace) mg/dL Urine Glucose (UA) Negative (Negative) mg/dL Urine Ketones Negative (Negative) mg/dL Urine Blood Negative (Negative) Urine Nitrite Negative (Negative) Ur Leukocyte Esterase Large (3+) H (Negative) Urine RBC 0-2 (0-2) /HPF Urine WBC 21-50 H (0-5) /HPF Ur Squamous Epith Cells 0-2 (0-2) /HPF Urine Bacteria None Seen (None Seen) Hyaline Casts 0-2 (0-2) /LPF Urine Test NEGATIVE (NEGATIVE) Discharge Plan Discharge Clinical Impression: UTI (urinary tract infection), Chronic GERD, Acute hemorrhoid, Trichomonal vaginitis Patient Disposition: Home, Self-Care Instructions: Hemorrhoids (ED), Trichomoniasis (ED), Urinary Tract Infection in Women (ED), Gastroesophageal Reflux Disease (ED) Additional Instructions: Drink plenty of fluid Take antibiotic for UTI Medicine for GERD and hemorrhoid Follow-up with GI and PCP Prescriptions: New cefuroxime axetil 250 mg tablet 250 mg PO BID 7 Days Qty: 14 0RF hydrocortisone acetate [Anusol-HC] 25 mg suppository 25 mg MN BID Qty: 12 0RF sucralfate 1 gram tablet 1 g PO TID Qty: 90 0RF diphenhydramine HCl [Benadryl] 25 mg capsule 25 mg PO TID PRN (Reason: itching) Qty: 30 0RF metronidazole 500 mg tablet 500 mg PO BID 7 Days Qty: 14 0RF No Action multivitamin Tablet 1 tab PO DAILY divalproex [Depakote] 250 mg Tablet,Delayed Release (Dr/Ec) 250 mg PO BID olanzapine 10 mg Tablet 10 mg PO DAILY fluconazole [Diflucan] 150 mg tablet 150 mg PO ONCE Qty: 1 0RF Rx Instructions: take on FridayOctober 01 ibuprofen 600 mg tablet 600 mg PO Q8H PRN (Reason: pain) Qty: 10 0RF amoxicillin-pot clavulanate [Augmentin] 500-125 mg tablet 1 tab PO BID Qty: 10 0RF penicillin V potassium 500 mg tablet 500 mg PO Q12H 10 Days Qty: 20 0RF divalproex [Depakote] 250 mg tablet,delayed release (DR/EC) 250 mg PO BID Qty: 60 0RF divalproex [Depakote] 250 mg tablet,delayed release (DR/EC) 250 mg PO BID Qty: 60 0RF penicillin V potassium 500 mg tablet 500 mg PO Q12H 10 Days Qty: 20 0RF ciprofloxacin HCl [Cipro] 500 mg tablet 500 mg PO BID 14 Days Qty: 28 0RF ciprofloxacin HCl [Cipro] 500 mg tablet 500 mg PO Q12H 7 Days Qty: 14 0RF amoxicillin-pot clavulanate [Augmentin] 875-125 mg tablet 1 tab PO Q12H 7 Days Qty: 14 0RF phenazopyridine [Pyridium] 100 mg tablet 200 mg PO TID PRN (Reason: pain) Qty: 10 0RF divalproex [Depakote] 250 mg tablet,delayed release (DR/EC) 250 mg PO BID 30 Days Qty: 60 0RF cyclobenzaprine 10 mg tablet 10 mg PO TID PRN (Reason: muscle spasm) Qty: 14 0RF ibuprofen 600 mg tablet 600 mg PO Q8H PRN (Reason: pain) Qty: 14 0RF amoxicillin-pot clavulanate 875-125 mg tablet 1 tab PO BID 7 Days Qty: 14 0RF Referrals: Viviana Blandon MD [Physician] - 1 week Print Language: Polish
[2023-02-25 14:36] LABS: MANUAL DIFF FLAG NO
[2023-02-25 14:48] LABS: Appearance Urine Clear; Color Urine Yellow; Glucose Urine UA Negative (Negative); Leukocyte Esterase Urine Large (3+) (Negative); Nitrite Urine Negative (Negative); Specific Gravity - Urine <= 1.005 (1.005-1.025); UMIC TRIGGER UACC YES; Urine Blood Negative (Negative); Urine Ketones Negative (Negative); Urine Protein Negative (Neg-Trace)
[2023-02-25 14:52] LABS: Alanine Aminotransferase 23 U/L (0-31); Albumin Level 4.4 g/dL (3.5-5.0); Alkaline Phosphatase 65 U/L (39-117); Anion Gap 15 (12-20); Aspartate Amino Transferase 21 U/L (5-31); Bilirubin Direct < 0.2 mg/dL (0.0-0.5); Bilirubin Total 0.2 mg/dL (0.0-1.0); Blood Urea Nitrogen 11 mg/dL (9-16); Carbon Dioxide 25 mmol/L (22-29); Chloride 103 mmol/L (96-108); Creatinine Clr Calc Pharmacy 91.4; Estimated Glomerular Filt Rate > 60; Glucose Random 80 mg/dL (60-115); Lipase 18 U/L (8-78); Potassium 3.8 mmol/L (3.3-5.1); Sodium 139 mmol/L (135-145); Total Protein 7.8 g/dL (6.5-8.0)
[2023-02-25 14:52] LABS: UPreg QC Valid YES; Urine Pregnancy NEGATIVE (NEGATIVE)
[2023-02-25 14:55] LABS: Bacteria Urine None Seen (None Seen); Hyaline Casts Urine 0-2 /LPF (0-2); RBC Urine 0-2 /HPF (0-2); Squamous Epithelial Cell Urine 0-2 /HPF (0-2); UACC Culture Trigger YES; WBC Urine 21-50 /HPF (0-5)
[2023-02-25 15:00] LABS: Basophils Absolute Auto 0.1 X10*3/uL (0.0-0.2); Basophils Percent Auto 0.4 % (0-2); Eosinophils Absolute Auto 0.7 X10*3/uL (0.0-0.4); Eosinophils Percent Auto 5.1 % (0-4); Hematocrit 39.6 % (37.0-47.0); Hemoglobin 13.4 g/dl (12.0-16.0); Imm Gran Abs Auto 0.04 X10*3/uL (0.00-0.03); Imm Gran Pct Auto 0.3 % (0.0-0.4); Lymphocytes Absolute Auto 2.8 X10*3/uL (1.2-4.9); Lymphocytes Percent Auto 22.3 % (20-40); Mean Corpuscular HGB Conc 33.8 g/dl (31.0-35.0); Mean Corpuscular Volume 88.8 fL (80.0-98.0); Monocytes Absolute Auto 1.1 X10*3/uL (0.1-1.2); Monocytes Percent Auto 8.6 % (2-11); Neutrophils Absolute Auto 8.1 x10*3/uL (2.0-8.3); Neutrophils Percent Auto 63.3 % (45-73); Platelet Count 270 X10*3/uL (160-400); Red Blood Count 4.46 X10*6/uL (4.20-5.50); Red Cell Distribution Width 14.6 % (11.0-16.0); White Blood Count 12.7 X10*3/uL (4.8-10.8)
[2023-02-25] MEDS: cefuroxime axetiL 250 MG TABLET PO (18:56)
== END 2023-02-25 19:14 | disposition home or self-care (01) ==
PROVIDERS: Physician Assistant Medical; Emergency Provider Internal Medicine
DX: N39.0 Urinary tract infection, site not specified (principal); K21.9 Gastro-esophageal reflux disease without esophagitis; A59.01 Trichomonal vulvovaginitis; K64.9 Unspecified hemorrhoids
CPT/HCPCS: 36415; 80048; 80076; 81001; 81025; 83690; 85025; 87086; 87147; 99282; 99283

== ENCOUNTER 2023-02-27 18:38 | Outpatient (REF) | payer MEDICAID, SELFPAY ==
[2023-02-28 05:10] LABS: CT PCR NOT DETECTED (Not Detect.); NG PCR NOT DETECTED (Not Detect.)
[2023-02-28 14:10] LABS: BV Int Neg Control Negative (Negative); BV Int Pos Control Positive (Positive)
== END 2023-02-27 18:39 | disposition home or self-care (01) ==
LOC: HO.HHCLNP 18:38
PROVIDERS: Visit Provider Family Medicine
DX: N76.0 Acute vaginitis (principal)
CPT/HCPCS: 0353U; 87480; 87510; 87660

== ENCOUNTER 2023-04-18 08:43 | Outpatient (REF) | payer MEDICAID, SELFPAY ==
[2023-04-18 11:29] LABS: Basophils Absolute Auto 0.1 X10*3/uL (0.0-0.2); Basophils Percent Auto 0.5 % (0-2); Eosinophils Absolute Auto 0.5 X10*3/uL (0.0-0.4); Eosinophils Percent Auto 5.1 % (0-4); Imm Gran Abs Auto 0.03 X10*3/uL (0.00-0.03); Imm Gran Pct Auto 0.3 % (0.0-0.4); Lymphocytes Absolute Auto 2.4 X10*3/uL (1.2-4.9); Lymphocytes Percent Auto 24.3 % (20-40); MANUAL DIFF FLAG SCAN; Mean Corpuscular HGB Conc 33.3 g/dl (31.0-35.0); Mean Corpuscular Hemoglobin 29.9 pg (27.0-33.0); Mean Corpuscular Volume 89.7 fL (80.0-98.0); Mean Platelet Volume 13.1 fL (9.4-12.3); Monocytes Absolute Auto 0.8 X10*3/uL (0.1-1.2); Monocytes Percent Auto 8.7 % (2-11); Neutrophils Absolute Auto 5.9 x10*3/uL (2.0-8.3); Neutrophils Percent Auto 61.1 % (45-73); PLT CLUMP 1; Red Blood Count 4.35 X10*6/uL (4.20-5.50); Red Cell Distribution Width 14.3 % (11.0-16.0); SCAN SMEAR FLAG 1
[2023-04-18 11:54] LABS: White Blood Count 9.7 X10*3/uL (4.8-10.8)
[2023-04-18 11:55] LABS: Platelet Count 187 X10*3/uL (160-400)
[2023-04-18 11:56] LABS: SLIDE REVIEW VERIFIED
[2023-04-18 12:08] LABS: Valproate 13.5 mcg/mL (50.0-100.0)
[2023-04-18 12:13] LABS: Vitamin D 25-OH Total 57.5 ng/mL (>30)
[2023-04-18 12:15] LABS: Alanine Aminotransferase 23 U/L (0-31); Albumin Level 4.2 g/dL (3.5-5.0); Alkaline Phosphatase 59 U/L (39-117); Anion Gap 12 (12-20); Aspartate Amino Transferase 23 U/L (5-31); Bilirubin Total 0.2 mg/dL (0.0-1.0); Blood Urea Nitrogen 15 mg/dL (9-16); Calcium 9.7 mg/dL (8.4-10.2); Carbon Dioxide 20 mmol/L (22-29); Chloride 108 mmol/L (96-108); Cholesterol 215 mg/dL (<200); Estimated Glomerular Filt Rate > 60; Glucose Random 95 mg/dL (60-115); HDL Cholesterol 58 mg/dL (>40); LDL Cholesterol Calculated 134 mg/dL (<100); Potassium 4.2 mmol/L (3.3-5.1); Sodium 136 mmol/L (135-145); Total Protein 7.4 g/dL (6.5-8.0); Triglycerides 119 mg/dL (<150)
== END 2023-04-18 08:44 | disposition home or self-care (01) ==
LOC: HO.HHCL 08:43
PROVIDERS: Visit Provider Family Medicine
DX: E66.9 Obesity, unspecified (principal); Z68.32 Body mass index [BMI] 32.0-32.9, adult; E55.9 Vitamin D deficiency, unspecified; F39 Unspecified mood [affective] disorder
CPT/HCPCS: 36415; 80053; 80061; 80164; 82306; 83735; 85025

== ENCOUNTER 2023-06-16 22:17 | Emergency (ER) | payer MEDICAID, SELFPAY ==
[2023-06-16 22:18] VITALS: BP 123/61; PULSE 69; RESP 16; TEMP 36.8; O2SAT 99; BMI 29.3
[2023-06-17 01:32] VITALS: BP 138/76; PULSE 73; RESP 17; TEMP 36.9; O2SAT 99
--- NOTE | 2023-06-17 02:02 | ED.LOWEXIN ---
HPI - Extremity Injury (Lower) General Chief Complaint: Extremity Injury, Lower Stated Complaint: bilateral foot pain Time Seen by Provider: 06/17/23 01:50 Source: patient Mode of arrival: ambulatory Limitations: no limitations History of Present Illness HPI Narrative: Patient comes to the emergency room complaining of bilateral foot pain. Patient states that she works out standing and both of her feet hurt from standing so much. Patient denies any injury. Patient states that sometimes when she starts standing, she has aches in her knees up to her thighs. Related Data Home Medications Medication Instructions Recorded Confirmed divalproex 250 mg tablet,delayed 250 mg PO BID 07/29/20 07/29/20 release (Depakote) multivitamin 1 tab PO DAILY 07/29/20 07/29/20 olanzapine 10 mg tablet 10 mg PO DAILY 07/29/20 07/29/20 Previous Rx's Medication Instructions Recorded divalproex 250 mg tablet,delayed 250 mg PO BID Bipolar #60 tabs 08/09/20 release (Depakote) penicillin V potassium 500 mg 500 mg PO Q12H dental pain 10 08/09/20 tablet days #20 tabs ciprofloxacin HCl 500 mg tablet 500 mg PO Q12H 7 days #14 tabs 08/13/20 (Cipro) ciprofloxacin HCl 500 mg tablet 500 mg PO BID 14 days #28 tabs 08/19/20 (Cipro) divalproex 250 mg tablet,delayed 250 mg PO BID #60 tabs 08/19/20 release (Depakote) penicillin V potassium 500 mg 500 mg PO Q12H dental pain 10 08/19/20 tablet days #20 tabs amoxicillin 875 mg-potassium 1 tab PO Q12H 7 days #14 tabs 09/14/20 clavulanate 125 mg tablet (Augmentin) divalproex 250 mg tablet,delayed 250 mg PO BID 30 days #60 tabs 09/14/20 release (Depakote) phenazopyridine 100 mg tablet 200 mg (2 x 100 mg) PO TID PRN 09/14/20 (Pyridium) pain 6 doses #10 tabs amoxicillin 500 mg-potassium 1 tab PO BID #10 tabs 09/28/20 clavulanate 125 mg tablet (Augmentin) fluconazole 150 mg tablet 150 mg PO ONCE #1 tab 09/28/20 (Diflucan) ibuprofen 600 mg tablet 600 mg PO Q8H PRN pain #10 tabs 09/28/20 amoxicillin 875 mg-potassium 1 tab PO BID 7 days #14 tabs 12/23/22 clavulanate 125 mg tablet cyclobenzaprine 10 mg tablet 10 mg PO TID PRN muscle spasm #14 01/08/23 tabs ibuprofen 600 mg tablet 600 mg PO Q8H PRN pain #14 tabs 01/08/23 cefuroxime axetil 250 mg tablet 250 mg PO BID 7 days #14 tabs 02/25/23 diphenhydramine HCl 25 mg capsule 25 mg PO TID PRN itching #30 caps 02/25/23 (Benadryl) hydrocortisone acetate 25 mg 25 mg [place] BID #12 ea 02/25/23 rectal suppository (Anusol-HC) metronidazole 500 mg tablet 500 mg PO BID 7 days #14 tabs 02/25/23 sucralfate 1 gram tablet 1 g PO TID #90 tabs 02/25/23 ibuprofen 600 mg tablet 600 mg PO TID PRN pain #20 tabs 06/17/23 Allergies Allergy/AdvReac Type Severity Reaction Status Date / Time No Known Allergies Allergy Verified 06/16/23 22:22 [No Known Allergies*] Review of Systems Review of Systems: Constitutional : No Weight loss, No Fever, No Chills, No Night Sweats, No Fatigue, No Malaise ENT/Mouth : No Hearing loss, No Ear Pain, No Nasal Congestion, No Sinus Pain, No Hoarseness, No sore throat, No Rhinorrhea, No Swallowing Difficulty Eyes: No Eye Pain, No Swelling, No Redness, No Foreign Body, No Discharge, No Vision Changes Cardiovascular : No Chest Pain, No SOB, No Dyspnea on Exertion, No Orthopnea, No Edema, No Palpitations Respiratory : No Cough, No Sputum, No Wheezing, No Smoke Exposure, No Dyspnea Gastrointestinal : No Nausea, No Vomiting, No Diarrhea, No Constipation, No abdominal Pain, No Hematochezia, No Melena Genitourinary : no irregular bleeding, No Dysuria, No Urinary Frequency, No Hematuria, No Urinary Incontinence, No Urgency, No Flank Pain, No Urinary Flow Changes, No Hesitancy Musculoskeletal : Bilateral foot pain, No joint pain, No Myalgias, No Joint Swelling Skin : No Skin Lesions, No rash Neuro : No Weakness, No Numbness, No Paresthesias, No Loss of Consciousness, No Dizziness, No Headache Psych : No Anxiety/Panic, No Depression, No SI/HI/AH/VH, No Social Issues, Heme/Lymph: No Bruising, No Bleeding,No Lymphadenopathy Endocrine : No Polyuria, No Polydipsia, No Temperature Intolerance [facility] Past Medical History Medical History Bipolar 1 disorder Social History Social History Alcohol intake: never Advance Directives: No Advance Directives Information Provided: Yes Physical Exam Vital Signs: Vital Signs: Last Vital Signs Temp 98.4 F 06/17/23 01:32 Pulse 73 06/17/23 01:32 Resp 17 06/17/23 01:32 BP 138/76 06/17/23 01:32 Pulse Ox 99 06/17/23 01:32 O2 Del Method Room Air 06/17/23 01:32 BMI result Body Mass Index 29.3 Const: Other: Appearance: Alert. Oriented X3. No acute distress. Eyes: Pupils equal, round and reactive to light. ENT: Pharynx normal. Neck: Normal inspection. Neck supple. No lymph nodes noted. No crepitus CVS: Normal heart rate and rhythm. Pulses normal. Normal S1 and S2 Respiratory: No respiratory distress. Breath sounds normal. No Wheezing. No rales Abdomen: Soft and nontender. No rigidity. No distention. Skin: Skin warm and dry. Normal skin color. Normal skin turgor. Extremities: No lower extremity edema. No Lacerations. No Rash. Patient's feet are normal. No blisters. Patient's arch is reduced, Neuro: Oriented X 3. No motor deficit. No sensory deficit. Moving all extremities. No slurred speech. CN 2 through 12 grossly intact Psych: calm, cooperative, normal affect Medical Decision Making Medical Decision Making MDM Narrative: Discussed with the patient that the arch in both feet is decreased, patient may need support for her feet. Patient was offered p.o. ibuprofen. However, patient states that she wants to stay sleeping for the next 5 hours here in the ED. Unfortunately, today is not a possibility, given the large volume of patients waiting to be seen, we can not accommodate patient's request. Discharge Plan Discharge Clinical Impression: Bilateral foot pain Patient Disposition: Home, Self-Care Instructions: Arthralgia (ED) Additional Instructions: Please follow-up with your primary care physician tomorrow. If you have any worsening or new symptoms, please return to the emergency room or call 911 Prescriptions: New ibuprofen 600 mg tablet 600 mg PO TID PRN (Reason: pain) Qty: 20 0RF No Action multivitamin Tablet 1 tab PO DAILY divalproex [Depakote] 250 mg Tablet,Delayed Release (Dr/Ec) 250 mg PO BID olanzapine 10 mg Tablet 10 mg PO DAILY fluconazole [Diflucan] 150 mg tablet 150 mg PO ONCE Qty: 1 0RF Rx Instructions: take on FridayOctober 01 ibuprofen 600 mg tablet 600 mg PO Q8H PRN (Reason: pain) Qty: 10 0RF amoxicillin-pot clavulanate [Augmentin] 500-125 mg tablet 1 tab PO BID Qty: 10 0RF penicillin V potassium 500 mg tablet 500 mg PO Q12H 10 Days Qty: 20 0RF divalproex [Depakote] 250 mg tablet,delayed release (DR/EC) 250 mg PO BID Qty: 60 0RF divalproex [Depakote] 250 mg tablet,delayed release (DR/EC) 250 mg PO BID Qty: 60 0RF penicillin V potassium 500 mg tablet 500 mg PO Q12H 10 Days Qty: 20 0RF ciprofloxacin HCl [Cipro] 500 mg tablet 500 mg PO BID 14 Days Qty: 28 0RF ciprofloxacin HCl [Cipro] 500 mg tablet 500 mg PO Q12H 7 Days Qty: 14 0RF amoxicillin-pot clavulanate [Augmentin] 875-125 mg tablet 1 tab PO Q12H 7 Days Qty: 14 0RF phenazopyridine [Pyridium] 100 mg tablet 200 mg PO TID PRN (Reason: pain) Qty: 10 0RF divalproex [Depakote] 250 mg tablet,delayed release (DR/EC) 250 mg PO BID 30 Days Qty: 60 0RF cyclobenzaprine 10 mg tablet 10 mg PO TID PRN (Reason: muscle spasm) Qty: 14 0RF ibuprofen 600 mg tablet 600 mg PO Q8H PRN (Reason: pain) Qty: 14 0RF amoxicillin-pot clavulanate 875-125 mg tablet 1 tab PO BID 7 Days Qty: 14 0RF cefuroxime axetil 250 mg tablet 250 mg PO BID 7 Days Qty: 14 0RF hydrocortisone acetate [Anusol-HC] 25 mg suppository 25 mg [place] BID Qty: 12 0RF sucralfate 1 gram tablet 1 g PO TID Qty: 90 0RF diphenhydramine HCl [Benadryl] 25 mg capsule 25 mg PO TID PRN (Reason: itching) Qty: 30 0RF metronidazole 500 mg tablet 500 mg PO BID 7 Days Qty: 14 0RF
--- NOTE | 2023-06-17 02:05 | PC.NURSE ---
patient became angry and walked out, refused po motrin and d/c paperwork. ambulated off unit with steady gait, provider aware.
== END 2023-06-17 02:06 | disposition home or self-care (01) ==
PROVIDERS: Emergency Provider Emergency Medicine
DX: M79.671 Pain in right foot (principal); M79.672 Pain in left foot; Z79.899 Other long term (current) drug therapy
CPT/HCPCS: 99283

== ENCOUNTER 2023-06-17 21:06 | Emergency (ER) | payer MEDICAID, SELFPAY ==
[2023-06-17 21:07] VITALS: BP 131/65; PULSE 78; RESP 18; TEMP 36.8; O2SAT 100
--- NOTE | 2023-06-17 22:16 | ED.GENADULT ---
HPI - General Adult General Chief complaint: Extremity Injury, Lower Stated complaint: bilateral foot pain, no injury Time Seen by Provider: 06/17/23 21:46 Source: patient Mode of arrival: ambulatory Limitations: no limitations History of Present Illness HPI narrative: Patient is a 43-year-old female who presents emergency department reporting bilateral foot pain. She reports pain extends to her knees calves and thighs at times particularly while standing. She denies any numbness tingling or cold sensation to the feet. Denies personal history of DVT/PE/malignancy. Denies any overt trauma. She reports extensive walking and pain is worse with this. She reports she is currently homeless and is requesting to stay here to sleep at this time. Related Data Home Medications Medication Instructions Recorded Confirmed divalproex 250 mg tablet,delayed 250 mg PO BID 07/29/20 07/29/20 release (Depakote) multivitamin 1 tab PO DAILY 07/29/20 07/29/20 olanzapine 10 mg tablet 10 mg PO DAILY 07/29/20 07/29/20 Previous Rx's Medication Instructions Recorded divalproex 250 mg tablet,delayed 250 mg PO BID Bipolar #60 tabs 08/09/20 release (Depakote) penicillin V potassium 500 mg 500 mg PO Q12H dental pain 10 08/09/20 tablet days #20 tabs ciprofloxacin HCl 500 mg tablet 500 mg PO Q12H 7 days #14 tabs 08/13/20 (Cipro) ciprofloxacin HCl 500 mg tablet 500 mg PO BID 14 days #28 tabs 08/19/20 (Cipro) divalproex 250 mg tablet,delayed 250 mg PO BID #60 tabs 08/19/20 release (Depakote) penicillin V potassium 500 mg 500 mg PO Q12H dental pain 10 08/19/20 tablet days #20 tabs amoxicillin 875 mg-potassium 1 tab PO Q12H 7 days #14 tabs 09/14/20 clavulanate 125 mg tablet (Augmentin) divalproex 250 mg tablet,delayed 250 mg PO BID 30 days #60 tabs 09/14/20 release (Depakote) phenazopyridine 100 mg tablet 200 mg (2 x 100 mg) PO TID PRN 09/14/20 (Pyridium) pain 6 doses #10 tabs amoxicillin 500 mg-potassium 1 tab PO BID #10 tabs 09/28/20 clavulanate 125 mg tablet (Augmentin) fluconazole 150 mg tablet 150 mg PO ONCE #1 tab 09/28/20 (Diflucan) ibuprofen 600 mg tablet 600 mg PO Q8H PRN pain #10 tabs 09/28/20 amoxicillin 875 mg-potassium 1 tab PO BID 7 days #14 tabs 12/23/22 clavulanate 125 mg tablet cyclobenzaprine 10 mg tablet 10 mg PO TID PRN muscle spasm #14 01/08/23 tabs ibuprofen 600 mg tablet 600 mg PO Q8H PRN pain #14 tabs 01/08/23 cefuroxime axetil 250 mg tablet 250 mg PO BID 7 days #14 tabs 02/25/23 diphenhydramine HCl 25 mg capsule 25 mg PO TID PRN itching #30 caps 02/25/23 (Benadryl) hydrocortisone acetate 25 mg 25 mg [place] BID #12 ea 02/25/23 rectal suppository (Anusol-HC) metronidazole 500 mg tablet 500 mg PO BID 7 days #14 tabs 02/25/23 sucralfate 1 gram tablet 1 g PO TID #90 tabs 02/25/23 ibuprofen 600 mg tablet 600 mg PO TID PRN pain #20 tabs 06/17/23 Allergies Allergy/AdvReac Type Severity Reaction Status Date / Time No Known Allergies Allergy Verified 06/17/23 21:11 [No Known Allergies*] Review of Systems Review of Systems: Yes all other systems are reviewed and are negative PMFSH Past Medical History Attestation statement: The following information was validated with the patient. Source: old records reviewed Medical History Bipolar 1 disorder Social History Social History Alcohol intake: never Smoked in Last 30 Days: No Use of substances other than those prescribed or required for medical reasons: No Advance Directives: No Advance Directives Information Provided: No Physical Exam ED Vital Signs: Vital Signs - 24 hr 06/17/23 21:07 06/17/23 23:44 Temperature 98.2 F 98.0 F Pulse Rate 78 76 Respiratory Rate 18 16 Blood Pressure 131/65 129/62 Pulse Oximetry 100 97 Oxygen Delivery Method Room Air Room Air BMI result Body Mass Index 30.0 Appearance: Alert.?Oriented to person, place and time. No acute distress.?Normal affect. Eyes: Pupils equal, round and reactive to light.? ENT: Pharynx normal.?? Neck: Normal inspection.? Neck supple.?? CVS: Heart sounds normal. Normal heart rate and rhythm.? Pulses normal.?? Respiratory: No respiratory distress.? Lung sounds clear to auscultation bilaterally?? Abdomen: Soft and non-tender. Normoactive bowel sounds. Skin: Skin warm and dry.? Normal skin color.? Normal skin turgor.?? Extremities: No lower extremity edema.? No calf ttp?2+ DP/PT pulse bilaterally. No wounds to the bilateral feet. No rashes or lesions. Diffuse tenderness upon palpation to the palmar aspect of both feet. Neuro: Moves all extremities spontaneously. Sensation intact bilaterally. Ambulates with normal steady gait. Medications Administered Discontinued Medications Generic Name Dose Route Start Last Admin Trade Name Freq PRN Reason Stop Dose Admin Acetaminophen 975 mg 06/17/23 22:42 06/17/23 22:56 Acetaminophen 325 Mg Tablet PO 06/17/23 22:43 975 mg ONCE ONE Administration Ibuprofen 600 mg 06/17/23 22:42 06/17/23 22:57 Ibuprofen 600 Mg Tablet PO 06/17/23 22:43 600 mg ONCE ONE Administration Medical Decision Making Medical Decision Making MDM Narrative: Patient is a 43-year-old female who presents emergency department for evaluation of bilateral lower extremity pain. History and physical exam concern for overuse injury due to extensive walking and standing. She is noted to have tenderness upon palpation to the bilateral soles for feet, footwear is poorly supportive, offered acetaminophen/ibuprofen which she accepts. History and physical examination with low concern for DVT, Wells negative. Would defer ultrasound imaging. No injury to suggest fracture/dislocation to the extremities or feet. Patient advised she is welcome to rest in the waiting room but can not accommodate request to sleep in the room. Discussed conservative treatment, rest when she can, change in footwear, acetaminophen ibuprofen, outpatient follow-up with PCP. Differential Diagnosis Differential Diagnoses: The differential diagnosis associated with the presentation includes (As noted above) Prescription Management I considered prescription management with: Pain Medication (Acetaminophen/ibuprofen) Social Determinants Patient?s care significantly limited by Social Determinants of Health including: Inadequate housing Discharge Plan Discharge Clinical Impression: Bilateral foot pain Patient Disposition: Home, Self-Care Instructions: Arthralgia (ED) Additional Instructions: You can take ibuprofen 200 mg, 3 tablets (600mg) every 6-8 hours as needed for pain, in addition to Tylenol 500 mg, 2 tablets (1,000mg) every 4-6 hours as needed for pain, but not to exceed 3 doses daily (3,000mg).? Prescriptions: No Action multivitamin Tablet 1 tab PO DAILY divalproex [Depakote] 250 mg Tablet,Delayed Release (Dr/Ec) 250 mg PO BID olanzapine 10 mg Tablet 10 mg PO DAILY fluconazole [Diflucan] 150 mg tablet 150 mg PO ONCE Qty: 1 0RF Rx Instructions: take on FridayOctober 01 ibuprofen 600 mg tablet 600 mg PO Q8H PRN (Reason: pain) Qty: 10 0RF amoxicillin-pot clavulanate [Augmentin] 500-125 mg tablet 1 tab PO BID Qty: 10 0RF penicillin V potassium 500 mg tablet 500 mg PO Q12H 10 Days Qty: 20 0RF divalproex [Depakote] 250 mg tablet,delayed release (DR/EC) 250 mg PO BID Qty: 60 0RF divalproex [Depakote] 250 mg tablet,delayed release (DR/EC) 250 mg PO BID Qty: 60 0RF penicillin V potassium 500 mg tablet 500 mg PO Q12H 10 Days Qty: 20 0RF ciprofloxacin HCl [Cipro] 500 mg tablet 500 mg PO BID 14 Days Qty: 28 0RF ciprofloxacin HCl [Cipro] 500 mg tablet 500 mg PO Q12H 7 Days Qty: 14 0RF amoxicillin-pot clavulanate [Augmentin] 875-125 mg tablet 1 tab PO Q12H 7 Days Qty: 14 0RF phenazopyridine [Pyridium] 100 mg tablet 200 mg PO TID PRN (Reason: pain) Qty: 10 0RF divalproex [Depakote] 250 mg tablet,delayed release (DR/EC) 250 mg PO BID 30 Days Qty: 60 0RF cyclobenzaprine 10 mg tablet 10 mg PO TID PRN (Reason: muscle spasm) Qty: 14 0RF ibuprofen 600 mg tablet 600 mg PO Q8H PRN (Reason: pain) Qty: 14 0RF amoxicillin-pot clavulanate 875-125 mg tablet 1 tab PO BID 7 Days Qty: 14 0RF cefuroxime axetil 250 mg tablet 250 mg PO BID 7 Days Qty: 14 0RF hydrocortisone acetate [Anusol-HC] 25 mg suppository 25 mg [place] BID Qty: 12 0RF sucralfate 1 gram tablet 1 g PO TID Qty: 90 0RF diphenhydramine HCl [Benadryl] 25 mg capsule 25 mg PO TID PRN (Reason: itching) Qty: 30 0RF metronidazole 500 mg tablet 500 mg PO BID 7 Days Qty: 14 0RF ibuprofen 600 mg tablet 600 mg PO TID PRN (Reason: pain) Qty: 20 0RF Interventions: ED Discharge Assessment Last Done: 06/17/23 23:47 Discharge Date/Time: 06/17/23 23:47
[2023-06-17] MEDS: Acetaminophen 325 MG TABLET 975 MG PO (22:56)
[2023-06-17] MEDS: Ibuprofen 600 MG TABLET PO (22:57)
[2023-06-17 23:44] VITALS: BP 129/62; PULSE 76; RESP 16; TEMP 36.7; O2SAT 97
--- NOTE | 2023-06-17 23:45 | PC.NURSE ---
Reviewed discharge instructions, pt verbalized understanding, no sign of distress upon discharge.
== END 2023-06-17 23:47 | disposition home or self-care (01) ==
PROVIDERS: Emergency Provider Emergency Medicine
DX: M79.671 Pain in right foot (principal); M79.672 Pain in left foot; Z79.899 Other long term (current) drug therapy
CPT/HCPCS: 99283; 99284

== ENCOUNTER 2023-06-18 06:52 | Emergency (ER) | payer MEDICAID, SELFPAY ==
[2023-06-18 07:00] VITALS: BP 103/48; PULSE 73; RESP 17; TEMP 36.6; O2SAT 98; BMI 27.8
--- NOTE | 2023-06-18 07:10 | ED.GENADULT ---
HPI - General Adult General Chief complaint: General Medical Stated complaint: Lips are Burning Time Seen by Provider: 06/18/23 07:10 Source: patient Mode of arrival: ambulatory Limitations: no limitations History of Present Illness HPI narrative: Patient is a 43-year-old female presenting to the emergency department with complaint of upper and lower lip irritation since waking this morning. She denies any other physical symptoms. Denies any fevers. Denies any sores or lesions inside her mouth. Reports history of same symptoms in the past. MD complaint: Lip dryness Onset (ago): hour(s) Location: mouth Severity: moderate Quality: burning Pain Consistency: constant Relieving factors: none Associated symptoms: denies other symptoms Treatments prior to arrival: none Related Data Home Medications Medication Instructions Recorded Confirmed divalproex 250 mg tablet,delayed 250 mg PO BID 07/29/20 07/29/20 release (Depakote) multivitamin 1 tab PO DAILY 07/29/20 07/29/20 olanzapine 10 mg tablet 10 mg PO DAILY 07/29/20 07/29/20 Previous Rx's Medication Instructions Recorded divalproex 250 mg tablet,delayed 250 mg PO BID Bipolar #60 tabs 08/09/20 release (Depakote) penicillin V potassium 500 mg 500 mg PO Q12H dental pain 10 08/09/20 tablet days #20 tabs ciprofloxacin HCl 500 mg tablet 500 mg PO Q12H 7 days #14 tabs 08/13/20 (Cipro) ciprofloxacin HCl 500 mg tablet 500 mg PO BID 14 days #28 tabs 08/19/20 (Cipro) divalproex 250 mg tablet,delayed 250 mg PO BID #60 tabs 08/19/20 release (Depakote) penicillin V potassium 500 mg 500 mg PO Q12H dental pain 10 08/19/20 tablet days #20 tabs amoxicillin 875 mg-potassium 1 tab PO Q12H 7 days #14 tabs 09/14/20 clavulanate 125 mg tablet (Augmentin) divalproex 250 mg tablet,delayed 250 mg PO BID 30 days #60 tabs 09/14/20 release (Depakote) phenazopyridine 100 mg tablet 200 mg (2 x 100 mg) PO TID PRN 09/14/20 (Pyridium) pain 6 doses #10 tabs amoxicillin 500 mg-potassium 1 tab PO BID #10 tabs 09/28/20 clavulanate 125 mg tablet (Augmentin) fluconazole 150 mg tablet 150 mg PO ONCE #1 tab 09/28/20 (Diflucan) ibuprofen 600 mg tablet 600 mg PO Q8H PRN pain #10 tabs 09/28/20 amoxicillin 875 mg-potassium 1 tab PO BID 7 days #14 tabs 12/23/22 clavulanate 125 mg tablet cyclobenzaprine 10 mg tablet 10 mg PO TID PRN muscle spasm #14 01/08/23 tabs ibuprofen 600 mg tablet 600 mg PO Q8H PRN pain #14 tabs 01/08/23 cefuroxime axetil 250 mg tablet 250 mg PO BID 7 days #14 tabs 02/25/23 diphenhydramine HCl 25 mg capsule 25 mg PO TID PRN itching #30 caps 02/25/23 (Benadryl) hydrocortisone acetate 25 mg 25 mg [place] BID #12 ea 02/25/23 rectal suppository (Anusol-HC) metronidazole 500 mg tablet 500 mg PO BID 7 days #14 tabs 02/25/23 sucralfate 1 gram tablet 1 g PO TID #90 tabs 02/25/23 ibuprofen 600 mg tablet 600 mg PO TID PRN pain #20 tabs 06/17/23 betamethasone dipropionate 0.05 % 1 appl topical BID PRN skin 06/18/23 topical cream irritation 1 week #15 grams Allergies Allergy/AdvReac Type Severity Reaction Status Date / Time No Known Allergies Allergy Verified 06/18/23 07:00 [No Known Allergies*] Review of Systems Review of Systems: As per HPI. Yes all other systems are reviewed and are negative Constitutional: Constitutional: Reports as per HPI [facility] Past Medical History Medical History Bipolar 1 disorder Social History Social History Alcohol intake: never Advance Directives: No Advance Directives Information Provided: No Physical Exam ED Vital Signs: Vital Signs - 24 hr 06/18/23 07:00 Temperature 98 F Pulse Rate 73 Respiratory Rate 17 Blood Pressure 103/48 L Pulse Oximetry 98 Oxygen Delivery Method Room Air BMI result Body Mass Index 27.8 Vital signs have been reviewed and appear to be correct. Blood pressure normal. Heart rate normal. Respiratory rate normal. Temperature normal. Oxygen saturation normal. Const General: cooperative, healthy appearing and no acute distress Orientation/consciousness: oriented to person, oriented to place, oriented to time and patient oriented x3 Limitations: no limitations HENMT Head: Yes normocephalic and Yes atraumatic Ears: external ears normal General nose exam: Normal external nose present Face and sinus: Yes face symmetric Mouth: Normal oral and palatal mucosa present, tongue normal, oropharynx normal, moist mucous membranes and lip abnormal (erythema and fissuring to upper and lower lips, upper > lower) diffuse Throat: Yes posterior oropharynx normal and Yes uvula midline Eyes Pupils: Equal, round and reactive pupils present Neck Neck: Yes normal visual inspection and Yes supple Lymphatic: no lymphadenopathy noted Resp Effort & Inspection: normal respiratory effort and able to speak in complete sentences Auscultation: clear to auscultation bilaterally Cardio Rate: regular rate Rhythm: regular rhythm Heart sounds: S1 normal heart sound present and S2 normal heart sound present GI Palpation (GI): Soft to palpation and nontender Auscultation: normoactive bowel sounds General: Yes no CVA tenderness Back/Spine/Pelvis Back: no CVA tenderness Skin General skin exam: elasticity normal and turgor normal Neuro General: oriented to person, oriented to place, oriented to time, patient oriented x3, moves all extremities, no focal motor deficits and CN's II-XI intact bilaterally Cranial nerves: Yes Equal, round and reactive pupils present Cognition (Neuro): normal cognition Extrem General: Yes full ROM, Yes no pedal edema and Yes no calf tenderness Psych Mental Status: mental status grossly normal Affect: normal affect Thought process: Normal thought process present Medical Decision Making Medical Decision Making MDM Narrative: Patient is a 43-year-old female presenting to the emergency department with complaint of upper and lower lip irritation since waking this morning. On exam patient is awake, A+Ox3, VS WNL, afebrile, normal neurological exam without focal deficits, physical exam findings as above. Given reported symptoms and physical exam findings, initial differential includes atopic vs irritant contact chelitis. Patient noted to be licking her lips frequently during exam. Educated patient on trying to avoid lip licking, advised patient to begin using unscented lip balm, emollients, and will prescribe betamethasone cream. Return precautions discussed. Patient verbalized understanding of and agreement with plan. Differential Diagnosis Differential Diagnoses: The differential diagnosis associated with the presentation includes As per [facility] External Record Review External record reviewed: Inpatient record, Office record and Outpatient record Prescription Management I considered prescription management with: Other Discharge Plan Discharge Clinical Impression: Contact cheilitis Patient Disposition: Home, Self-Care Additional Instructions: You were evaluated in the emergency department today for lip dryness. You should avoid licking your lips. You should begin using plain petrolatum (Vaseline) throughout the day. Avoid using any lip balms with fragrance. You are being prescribed a steroid cream which you can use twice daily for the next week. Return to the emergency department if you develop worsening pain, bleeding, fever, or any other concerns. Prescriptions: New betamethasone dipropionate 0.05 % cream 1 appl topical BID PRN (Reason: skin irritation) 7 Days Qty: 15 0RF No Action multivitamin Tablet 1 tab PO DAILY divalproex [Depakote] 250 mg Tablet,Delayed Release (Dr/Ec) 250 mg PO BID olanzapine 10 mg Tablet 10 mg PO DAILY fluconazole [Diflucan] 150 mg tablet 150 mg PO ONCE Qty: 1 0RF Rx Instructions: take on FridayOctober 01 ibuprofen 600 mg tablet 600 mg PO Q8H PRN (Reason: pain) Qty: 10 0RF amoxicillin-pot clavulanate [Augmentin] 500-125 mg tablet 1 tab PO BID Qty: 10 0RF penicillin V potassium 500 mg tablet 500 mg PO Q12H 10 Days Qty: 20 0RF divalproex [Depakote] 250 mg tablet,delayed release (DR/EC) 250 mg PO BID Qty: 60 0RF divalproex [Depakote] 250 mg tablet,delayed release (DR/EC) 250 mg PO BID Qty: 60 0RF penicillin V potassium 500 mg tablet 500 mg PO Q12H 10 Days Qty: 20 0RF ciprofloxacin HCl [Cipro] 500 mg tablet 500 mg PO BID 14 Days Qty: 28 0RF ciprofloxacin HCl [Cipro] 500 mg tablet 500 mg PO Q12H 7 Days Qty: 14 0RF amoxicillin-pot clavulanate [Augmentin] 875-125 mg tablet 1 tab PO Q12H 7 Days Qty: 14 0RF phenazopyridine [Pyridium] 100 mg tablet 200 mg PO TID PRN (Reason: pain) Qty: 10 0RF divalproex [Depakote] 250 mg tablet,delayed release (DR/EC) 250 mg PO BID 30 Days Qty: 60 0RF cyclobenzaprine 10 mg tablet 10 mg PO TID PRN (Reason: muscle spasm) Qty: 14 0RF ibuprofen 600 mg tablet 600 mg PO Q8H PRN (Reason: pain) Qty: 14 0RF amoxicillin-pot clavulanate 875-125 mg tablet 1 tab PO BID 7 Days Qty: 14 0RF cefuroxime axetil 250 mg tablet 250 mg PO BID 7 Days Qty: 14 0RF hydrocortisone acetate [Anusol-HC] 25 mg suppository 25 mg [place] BID Qty: 12 0RF sucralfate 1 gram tablet 1 g PO TID Qty: 90 0RF diphenhydramine HCl [Benadryl] 25 mg capsule 25 mg PO TID PRN (Reason: itching) Qty: 30 0RF metronidazole 500 mg tablet 500 mg PO BID 7 Days Qty: 14 0RF ibuprofen 600 mg tablet 600 mg PO TID PRN (Reason: pain) Qty: 20 0RF
== END 2023-06-18 07:40 | disposition home or self-care (01) ==
PROVIDERS: Emergency Provider Emergency Medicine Emergency Medical Services
DX: K13.0 Diseases of lips (principal)
CPT/HCPCS: 99282; 99283

== ENCOUNTER 2024-07-28 01:45 | Emergency (ER) | payer MEDICAID, SELFPAY ==
[2024-07-28 01:54] VITALS: BP 166/102; PULSE 78; O2SAT 97
[2024-07-28 02:00] VITALS: BP 145/81; PULSE 82; RESP 16; TEMP 36.6; O2SAT 98
--- NOTE | 2024-07-28 02:14 | ED.GENADULT ---
HPI - General Adult General Chief complaint: General Medical Stated complaint: FALL Time Seen by Provider: 07/28/24 02:10 Source: patient Mode of arrival: ambulatory Limitations: no limitations History of Present Illness ED Provider: Dr. Xin Hall HPI narrative: Patient comes to the emergency room by ambulance. According to PD, patient found her lying on the ground. Patient states she is homeless, did not fall. Patient states that she is very hungry and therefore she is not feeling well. Patient initially when she came in reported having headache and abdominal pain. However, patient states truthfully, she has none of the above, she is just very hungry. Patient states that today she will be going to a new homeless half-way. Patient denies using drugs or alcohol, denies SI or HI Related Data Home Medications ?Medication ?Instructions ?Recorded ?Confirmed divalproex 250 mg tablet,delayed 250 mg PO BID 07/29/20 07/29/20 release (Depakote) multivitamin 1 tab PO DAILY 07/29/20 07/29/20 olanzapine 10 mg tablet 10 mg PO DAILY 07/29/20 07/29/20 Previous Rx's ?Medication ?Instructions ?Recorded divalproex 250 mg tablet,delayed 250 mg PO BID Bipolar #60 tabs 08/09/20 release (Depakote) penicillin V potassium 500 mg 500 mg PO Q12H dental pain 10 08/09/20 tablet days #20 tabs ciprofloxacin HCl 500 mg tablet 500 mg PO Q12H 7 days #14 tabs 08/13/20 (Cipro) ciprofloxacin HCl 500 mg tablet 500 mg PO BID 14 days #28 tabs 08/19/20 (Cipro) divalproex 250 mg tablet,delayed 250 mg PO BID #60 tabs 08/19/20 release (Depakote) penicillin V potassium 500 mg 500 mg PO Q12H dental pain 10 08/19/20 tablet days #20 tabs amoxicillin 875 mg-potassium 1 tab PO Q12H 7 days #14 tabs 09/14/20 clavulanate 125 mg tablet (Augmentin) divalproex 250 mg tablet,delayed 250 mg PO BID 30 days #60 tabs 09/14/20 release (Depakote) phenazopyridine 100 mg tablet 200 mg (2 x 100 mg) PO TID PRN 09/14/20 (Pyridium) pain 6 doses #10 tabs amoxicillin 500 mg-potassium 1 tab PO BID #10 tabs 09/28/20 clavulanate 125 mg tablet (Augmentin) fluconazole 150 mg tablet 150 mg PO ONCE #1 tab 09/28/20 (Diflucan) ibuprofen 600 mg tablet 600 mg PO Q8H PRN pain #10 tabs 09/28/20 amoxicillin 875 mg-potassium 1 tab PO BID 7 days #14 tabs 12/23/22 clavulanate 125 mg tablet cyclobenzaprine 10 mg tablet 10 mg PO TID PRN muscle spasm #14 01/08/23 tabs ibuprofen 600 mg tablet 600 mg PO Q8H PRN pain #14 tabs 01/08/23 cefuroxime axetil 250 mg tablet 250 mg PO BID 7 days #14 tabs 02/25/23 diphenhydramine HCl 25 mg capsule 25 mg PO TID PRN itching #30 caps 02/25/23 (Benadryl) hydrocortisone acetate 25 mg 25 mg SD BID #12 ea 02/25/23 rectal suppository (Anusol-HC) metronidazole 500 mg tablet 500 mg PO BID 7 days #14 tabs 02/25/23 sucralfate 1 gram tablet 1 g PO TID #90 tabs 02/25/23 ibuprofen 600 mg tablet 600 mg PO TID PRN pain #20 tabs 06/17/23 betamethasone dipropionate 0.05 % 1 appl topical BID PRN skin 06/18/23 topical cream irritation 1 week #15 grams Allergies Allergy/AdvReac Type Severity Reaction Status Date / Time No Known Allergies Allergy Verified 07/28/24 02:02 [No Known Allergies*] Review of Systems Review of Systems: Constitutional : No Weight loss, No Fever, No Chills, No Night Sweats, No Fatigue, No Malaise ENT/Mouth : No Hearing loss, No Ear Pain, No Nasal Congestion, No Sinus Pain, No Hoarseness, No sore throat, No Rhinorrhea, No Swallowing Difficulty Eyes: No Eye Pain, No Swelling, No Redness, No Foreign Body, No Discharge, No Vision Changes Cardiovascular : No Chest Pain, No SOB, No Dyspnea on Exertion, No Orthopnea, No Edema, No Palpitations Respiratory : No Cough, No Sputum, No Wheezing, No Smoke Exposure, No Dyspnea Gastrointestinal : No Nausea, No Vomiting, No Diarrhea, No Constipation, No abdominal Pain, No Hematochezia, No Melena Genitourinary : no irregular bleeding, No Dysuria, No Urinary Frequency, No Hematuria, No Urinary Incontinence, No Urgency, No Flank Pain, No Urinary Flow Changes, No Hesitancy Musculoskeletal : No joint pain, No Myalgias, No Joint Swelling Skin : No Skin Lesions, No rash Neuro : No Weakness, No Numbness, No Paresthesias, No Loss of Consciousness, No Dizziness, No Headache Psych : No Anxiety/Panic, No Depression, No SI/HI/AH/VH, complaining of feeling hungry and patient is homeless. Heme/Lymph: No Bruising, No Bleeding,No Lymphadenopathy Endocrine : No Polyuria, No Polydipsia, No Temperature Intolerance PMFSH Past Medical History Medical History Bipolar 1 disorder Social History Social History Alcohol intake: never Smoked in Last 30 Days: No Use of substances other than those prescribed or required for medical reasons: No Physical Exam ED Vital Signs: Vital Signs - 24 hr 07/28/24 02:00 Temperature 97.9 F Pulse Rate 82 Respiratory Rate 16 Blood Pressure 145/81 H Pulse Oximetry 98 Oxygen Delivery Method Room Air BMI result Body Mass Index 20.0 Const Other: Appearance: Alert. Oriented X3. No acute distress. Eyes: Pupils equal, round and reactive to light. ENT: Pharynx normal. Neck: Normal inspection. Neck supple. No lymph nodes noted. No crepitus CVS: Normal heart rate and rhythm. Pulses normal. Normal S1 and S2 Respiratory: No respiratory distress. Breath sounds normal. No Wheezing. No rales Abdomen: Soft and nontender. No rigidity. No distention. Skin: Skin warm and dry. Normal skin color. Normal skin turgor. Extremities: No lower extremity edema. No Lacerations. No Rash Neuro: Oriented X 3. No motor deficit. No sensory deficit. Moving all extremities. No slurred speech. CN 2 through 12 grossly intact Psych: calm, cooperative, normal affect Medical Decision Making Medical Decision Making MDM Narrative: Patient states that she has no medical complaints, patient is homeless and feels hungry. Patient was given food. Patient will be discharged in the morning, per patient she already has a arrangements to stay in a half-way for later tonight Discharge Plan Discharge Clinical Impression: Hungry, Homeless Patient Disposition: Home, Self-Care Additional Instructions: Please follow-up with your primary care physician tomorrow. If you have any worsening or new symptoms, please return to the emergency room or call 911 Prescriptions: No Action multivitamin Tablet 1 tab PO DAILY divalproex [Depakote] 250 mg Tablet,Delayed Release (Dr/Ec) 250 mg PO BID olanzapine 10 mg Tablet 10 mg PO DAILY fluconazole [Diflucan] 150 mg tablet 150 mg PO ONCE Qty: 1 0RF Rx Instructions: take on FridayOctober 01 ibuprofen 600 mg tablet 600 mg PO Q8H PRN (Reason: pain) Qty: 10 0RF amoxicillin-pot clavulanate [Augmentin] 500-125 mg tablet 1 tab PO BID Qty: 10 0RF penicillin V potassium 500 mg tablet 500 mg PO Q12H 10 Days Qty: 20 0RF divalproex [Depakote] 250 mg tablet,delayed release (DR/EC) 250 mg PO BID Qty: 60 0RF divalproex [Depakote] 250 mg tablet,delayed release (DR/EC) 250 mg PO BID Qty: 60 0RF penicillin V potassium 500 mg tablet 500 mg PO Q12H 10 Days Qty: 20 0RF ciprofloxacin HCl [Cipro] 500 mg tablet 500 mg PO BID 14 Days Qty: 28 0RF ciprofloxacin HCl [Cipro] 500 mg tablet 500 mg PO Q12H 7 Days Qty: 14 0RF amoxicillin-pot clavulanate [Augmentin] 875-125 mg tablet 1 tab PO Q12H 7 Days Qty: 14 0RF phenazopyridine [Pyridium] 100 mg tablet 200 mg PO TID PRN (Reason: pain) Qty: 10 0RF divalproex [Depakote] 250 mg tablet,delayed release (DR/EC) 250 mg PO BID 30 Days Qty: 60 0RF cyclobenzaprine 10 mg tablet 10 mg PO TID PRN (Reason: muscle spasm) Qty: 14 0RF ibuprofen 600 mg tablet 600 mg PO Q8H PRN (Reason: pain) Qty: 14 0RF betamethasone dipropionate 0.05 % cream 1 appl topical BID PRN (Reason: skin irritation) 7 Days Qty: 15 0RF amoxicillin-pot clavulanate 875-125 mg tablet 1 tab PO BID 7 Days Qty: 14 0RF cefuroxime axetil 250 mg tablet 250 mg PO BID 7 Days Qty: 14 0RF hydrocortisone acetate [Anusol-HC] 25 mg suppository 25 mg SD BID Qty: 12 0RF sucralfate 1 gram tablet 1 g PO TID Qty: 90 0RF diphenhydramine HCl [Benadryl] 25 mg capsule 25 mg PO TID PRN (Reason: itching) Qty: 30 0RF metronidazole 500 mg tablet 500 mg PO BID 7 Days Qty: 14 0RF ibuprofen 600 mg tablet 600 mg PO TID PRN (Reason: pain) Qty: 20 0RF Print Language: Faroese
[2024-07-28 06:00] VITALS: BP 133/75; PULSE 85; RESP 16; TEMP 36.6; O2SAT 97
[2024-07-28 08:09] VITALS: BP 133/75; PULSE 85; RESP 16; TEMP 36.6; O2SAT 97
== END 2024-07-28 08:42 | disposition home or self-care (01) ==
PROVIDERS: Emergency Provider Emergency Medicine
DX: T73.0XXA Starvation, initial encounter (principal); X58.XXXA Exposure to other specified factors, initial encounter; Z59.00 Homelessness unspecified
CPT/HCPCS: 99282; 99284

== ENCOUNTER 2024-08-17 08:43 | Emergency (ER) | payer MEDICAID, SELFPAY ==
--- NOTE | ~2024-08-17 | XR_ITS ---
EXAMINATION: XR SACRUM AND COCCYX CLINICAL INFORMATION: back pain COMPARISON: None available. TECHNIQUE: 2 views of the sacrum and 2 views of the coccyx were obtained. FINDINGS: There are no fractures. No bone, joint or soft tissue abnormality is demonstrated. XR/XR sacrum coccyx min 2V IMPRESSION: Unremarkable sacrum and coccyx examination. Electronically signed by: Aram Melchor MD 08/17/2024 10:48 AM EDT
--- NOTE | ~2024-08-17 | XR_ITS ---
EXAMINATION: XR LUMBOSACRAL SPINE CLINICAL INFORMATION: back pain COMPARISON: None available. TECHNIQUE: Three views of the lumbosacral spine. FINDINGS: There is normal lumbar lordosis. There is grade 1 anterolisthesis L5 over S1. Rest of the alignment and all vertebral heights are normal. The disc heights are preserved normal. No fracture or lytic process seen. SI joints are symmetrical and normal. XR/XR lumbar spine 2-3V IMPRESSION: Grade 1 anterolisthesis L5 over S1. Electronically signed by: Aram Melchor MD 08/17/2024 10:47 AM EDT
[2024-08-17 08:46] VITALS: BP 116/73; PULSE 87; RESP 20; TEMP 36.8; O2SAT 97; BMI 27.9
--- NOTE | 2024-08-17 09:44 | ED_ITS ---
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 Patient reports that the back pain is constant however worsens with movement. Pain starts in her right low back, and radiates down her right leg. She denies any saddle anesthesia, urinary frequency, urgency, retention or incontinence. She denies any weakness in her lower extremities, she states that when she moves her right leg her pain worsens however adamantly denies that there is any weakness in her legs. Patient denies any recent trauma, injury, heavy lifting. She denies history of IVDA. She denies any fevers, chills, chest pain, shortness of breath, abdominal pain, nausea, vomiting or diarrhea. Denies taking any medications at home to treat her current symptoms. No other complaints or concerns at this time. MD elicited complaint: back pain Onset (ago): week(s) Timing: constant Severity: moderate Similar Symptoms Previously: No Quality: aching Location: right lower back Radiation: right leg below the knee Exacerbating factors: movement Relieving factors: immobilization Associated symptoms: denies other symptoms Work related injury: No Related Data Home Medications ?Medication ?Instructions ?Recorded ?Confirmed divalproex 250 mg tablet,delayed 250 mg PO BID 07/29/20 07/29/20 release (Depakote) multivitamin 1 tab PO DAILY 07/29/20 07/29/20 olanzapine 10 mg tablet 10 mg PO DAILY 07/29/20 07/29/20 Previous Rx's ?Medication ?Instructions ?Recorded divalproex 250 mg tablet,delayed 250 mg PO BID Bipolar #60 tabs 08/09/20 release (Depakote) penicillin V potassium 500 mg 500 mg PO Q12H dental pain 10 08/09/20 tablet days #20 tabs ciprofloxacin HCl 500 mg tablet 500 mg PO Q12H 7 days #14 tabs 08/13/20 (Cipro) ciprofloxacin HCl 500 mg tablet 500 mg PO BID 14 days #28 tabs 08/19/20 (Cipro) divalproex 250 mg tablet,delayed 250 mg PO BID #60 tabs 08/19/20 release (Depakote) penicillin V potassium 500 mg 500 mg PO Q12H dental pain 10 08/19/20 tablet days #20 tabs amoxicillin 875 mg-potassium 1 tab PO Q12H 7 days #14 tabs 09/14/20 clavulanate 125 mg tablet (Augmentin) divalproex 250 mg tablet,delayed 250 mg PO BID 30 days #60 tabs 09/14/20 release (Depakote) phenazopyridine 100 mg tablet 200 mg (2 x 100 mg) PO TID PRN 09/14/20 (Pyridium) pain 6 doses #10 tabs amoxicillin 500 mg-potassium 1 tab PO BID #10 tabs 09/28/20 clavulanate 125 mg tablet (Augmentin) fluconazole 150 mg tablet 150 mg PO ONCE #1 tab 09/28/20 (Diflucan) ibuprofen 600 mg tablet 600 mg PO Q8H PRN pain #10 tabs 09/28/20 amoxicillin 875 mg-potassium 1 tab PO BID 7 days #14 tabs 12/23/22 clavulanate 125 mg tablet cyclobenzaprine 10 mg tablet 10 mg PO TID PRN muscle spasm #14 01/08/23 tabs ibuprofen 600 mg tablet 600 mg PO Q8H PRN pain #14 tabs 01/08/23 cefuroxime axetil 250 mg tablet 250 mg PO BID 7 days #14 tabs 02/25/23 diphenhydramine HCl 25 mg capsule 25 mg PO TID PRN itching #30 caps 02/25/23 (Benadryl) hydrocortisone acetate 25 mg 25 mg MI BID #12 ea 02/25/23 rectal suppository (Anusol-HC) metronidazole 500 mg tablet 500 mg PO BID 7 days #14 tabs 02/25/23 sucralfate 1 gram tablet 1 g PO TID #90 tabs 02/25/23 ibuprofen 600 mg tablet 600 mg PO TID PRN pain #20 tabs 06/17/23 betamethasone dipropionate 0.05 % 1 appl topical BID PRN skin 06/18/23 topical cream irritation 1 week #15 grams acetaminophen 500 mg tablet 500 mg PO Q6H PRN pain #30 tabs 08/17/24 (Tylenol Extra Strength) lidocaine 5 % topical patch 1 patch topical DAILY #30 ea 08/17/24 prednisone 20 mg tablet 40 mg (2 x 20 mg) PO DAILY 5 days 08/17/24 #10 tabs Allergies Allergy/AdvReac Type Severity Reaction Status Date / Time No Known Allergies Allergy Verified 08/17/24 08:50 [No Known Allergies*] Review of Systems Review of Systems: Yes all other systems are reviewed and are negative Constitutional: Constitutional: Reports as per [facility] Past Medical History Attestation statement: The following information was validated with the patient. Medical History Bipolar 1 disorder Social History Social History Alcohol intake: never Physical Exam Vital Signs: Vital Signs: Last Vital Signs Temp 973.8 F H 08/17/24 12:46 Pulse 80 08/17/24 12:46 Resp 16 08/17/24 12:46 BP 154/74 H 08/17/24 12:46 Pulse Ox 98 08/17/24 12:46 O2 Del Method Room Air 08/17/24 12:46 BMI result Body Mass Index 27.9 Const: General: cooperative, comfortable and no acute distress Orientation/consciousness: patient oriented x3 Limitations: no limitations HEENT: Head: Yes normal to inspection, Yes normocephalic and Yes atraumatic Ears: hearing grossly normal bilaterally General nose exam: Normal external nose present Face and sinus: Yes normal facial exam Mouth: Normal oral and palatal mucosa present, oropharynx normal and moist mucous membranes Throat: Yes posterior oropharynx normal Eyes: General: appearance normal, both eyes and all related structures Eyelids: Yes eyelids normal Conjunctivae: conjunctivae normal Sclerae: sclerae normal Pupils: Equal, round and reactive pupils present EOM: EOMs intact bilaterally Neck: Neck: Yes normal visual inspection, Yes full ROM and Yes no lymphadenopathy Lymphatic: no lymphadenopathy noted Chest: Chest palpation & inspection: normal inspection of the chest Resp: Effort & Inspection: normal respiratory effort and able to speak in complete sentences Auscultation: clear to auscultation bilaterally, no crackles, no rales, no rhonchi and no wheezes Cardio: Rate: regular rate Rhythm: regular rhythm Heart sounds: S1 normal heart sound present and S2 normal heart sound present GI: Inspection: Yes normal to inspection Back/Spine/Pelvis: Other: Tenderness palpation along the right lower lumbar musculature, tenderness palpation along the right SI joint. Distal sensation circulation intact. DTRs are 2+. No pitting edema noted. No calf tenderness. Skin: General skin exam: no rashes or lesions noted Trauma: no lacerations or abrasions Wounds: no wounds Neuro: General: patient oriented x3 and moves all extremities Cranial nerves: Yes Equal, round and reactive pupils present Extrem: General: Yes normal to inspection Right upper extremity: normal to inspection Left upper extremity: normal to inspection Right lower extremity: normal to inspection Left lower extremity: normal to inspection Medications Administered Discontinued Medications Generic Name Dose Route Start Last Admin Trade Name Freq PRN Reason Stop Dose Admin Acetaminophen 650 mg 08/17/24 10:08/17/24 10:33 Acetaminophen 325 Mg Tablet PO 08/17/24 10:06 650 mg ONCE ONE Administration Lidocaine 1 patch 08/17/24 10:08/17/24 10:33 Lidocaine 4 % Patch Adh..Patch TRANSDERMA 08/17/24 10:06 1 patch ONCE ONE Administration Protocol Medical Decision Making Medical Decision Making MDM Narrative: This is a 44-year-old female, with a history of bipolar disorder, who presents emergency department with complaints of right-sided back pain that radiates down her right leg for the last month. On arrival, patient ambulatory with steady gait, vital signs within normal limits. She is speaking full sentences under no acute distress. Nursing notes stated that she had right-sided weakness in her right lower leg however patient reports that her pain worsens in her low back with movement of her right leg, she denies any weakness in her lower extremities. This patient presents with back pain most consistent with lumbar radiculopathy. Differential diagnoses includes lumbago versus musculoskeletal spasm / strain versus sciatica. No back pain red flags on history or physical. Presentation not consistent with malignancy (lack of history of malignancy, lack of B symptoms), fracture (no trauma, no bony tenderness to palpation), cauda equina syndrome (no bowel or urinary incontinence/retention, no saddle anesthesia, no distal weakness),pulmonary embolism, renal colic, pyelonephritis (afebrile, no CVAT, no urinary symptoms). X-ray was obtained to rule out any bony abnormalities. X-ray revealing unremarkable sacrum and coccyx exam, and grade 1 anterolisthesis L5 over S1. This does findings with patient. She was m edicated with Tylenol and lidocaine patch which provided her with some relief. Discharged with prednisone, Tylenol, and lidocaine patches. Given strict return precautions. She understands and agrees with plan. Patient stable for discharge Differential Diagnosis Differential Diagnoses: The differential diagnosis associated with the pr esentation includes See above Radiology Impression Discussion of test interpretation with radiology: I have reviewed the radiol ogist's reading. Radiologist Impression: EXAMINATION: XR LUMBOSACRAL SPINE CLINICAL INFORMATION: back pain COMPARISON: None available. TECHNIQUE: Three views of the lumbosacral spine. FINDINGS: There is normal lumbar lordosis. There is grade 1 anterolisthesis L5 over S1. Rest of the alignment and all vertebral heights are normal. The disc heights are preserved normal. No fracture or lytic process seen. SI joints are symmetrical and normal. XR/XR lumbar spine 2-3V IMPRESSION: Grade 1 anterolisthesis L5 over S1. Electronically signed by: Aram Melchor MD 08/17/2024 10:47 AM EDT RP Dictated By: Aram Melchor MD EXAMINATION: XR SACRUM AND COCCYX CLINICAL INFORMATION: back pain COMPARISON: None available. TECHNIQUE: 2 views of the sacrum and 2 views of the coccyx were obtained. FINDINGS: There are no fractures. No bone, joint or soft tissue abnormality is demonstrated. XR/XR sacrum coccyx min 2V IMPRESSION: Unremarkable sacrum and coccyx examination. Electronically signed by: Aram Melchor MD 08/17/2024 10:48 AM EDT RP Dictated By: Aram Melchor MD Discharge Plan Discharge Clinical Impression: Sciatica, Anterolisthesis of lumbosacral spine Patient Disposition: Home, Self-Care Instructions: Sciatica (ED) Additional Instructions: You were seen in the emergency department due to back pain. Your symptoms are likely due to sciatica and/or lumbar radiculopathy. Your x-rays today show Grade 1 anterolisthesis L5 over S1 - please follow-up with your primary care physician regarding this finding. Take prescribed medication as directed. Take prednisone as prescribed, this is an anti-inflammatory. Take Tylenol, and he was Lidoderm patches. Gentle stretching, and massage can help with your symptoms. If any new or worsening symptoms occur including but not limited to numbness tingling into your groin, loss of bladder or bowel control, chest pain, shortness of breath, please seek emergent care. Prescriptions: New prednisone 20 mg tablet 40 mg PO DAILY 5 Days Qty: 10 0RF acetaminophen [Tylenol Extra Strength] 500 mg tablet 500 mg PO Q6H PRN (Reason: pain) Qty: 30 0RF lidocaine 5 % adhesive patch,medicated 1 patch topical DAILY Qty: 30 0RF Rx Instructions: leave on most painful area for up to 12 hrs No Action multivitamin Tablet 1 tab PO DAILY divalproex [Depakote] 250 mg Tablet,Delayed Release (Dr/Ec) 250 mg PO BID olanzapine 10 mg Tablet 10 mg PO DAILY fluconazole [Diflucan] 150 mg tablet 150 mg PO ONCE Qty: 1 0RF Rx Instructions: take on FridayOctober 01 ibuprofen 600 mg tablet 600 mg PO Q8H PRN (Reason: pain) Qty: 10 0RF amoxicillin-pot clavulanate [Augmentin] 500-125 mg tablet 1 tab PO BID Qty: 10 0RF penicillin V potassium 500 mg tablet 500 mg PO Q12H 10 Days Qty: 20 0RF divalproex [Depakote] 250 mg tablet,delayed release (DR/EC) 250 mg PO BID Qty: 60 0RF divalproex [Depakote] 250 mg tablet,delayed release (DR/EC) 250 mg PO BID Qty: 60 0RF penicillin V potassium 500 mg tablet 500 mg PO Q12H 10 Days Qty: 20 0RF ciprofloxacin HCl [Cipro] 500 mg tablet 500 mg PO BID 14 Days Qty: 28 0RF ciprofloxacin HCl [Cipro] 500 mg tablet 500 mg PO Q12H 7 Days Qty: 14 0RF amoxicillin-pot clavulanate [Augmentin] 875-125 mg tablet 1 tab PO Q12H 7 Days Qty: 14 0RF phenazopyridine [Pyridium] 100 mg tablet 200 mg PO TID PRN (Reason: pain) Qty: 10 0RF divalproex [Depakote] 250 mg tablet,delayed release (DR/EC) 250 mg PO BID 30 Days Qty: 60 0RF cyclobenzaprine 10 mg tablet 10 mg PO TID PRN (Reason: muscle spasm) Qty: 14 0RF ibuprofen 600 mg tablet 600 mg PO Q8H PRN (Reason: pain) Qty: 14 0RF betamethasone dipropionate 0.05 % cream 1 appl topical BID PRN (Reason: skin irritation) 7 Days Qty: 15 0RF amoxicillin-pot clavulanate 875-125 mg tablet 1 tab PO BID 7 Days Qty: 14 0RF cefuroxime axetil 250 mg tablet 250 mg PO BID 7 Days Qty: 14 0RF hydrocortisone acetate [Anusol-HC] 25 mg suppository 25 mg MI BID Qty: 12 0RF sucralfate 1 gram tablet 1 g PO TID Qty: 90 0RF diphenhydramine HCl [Benadryl] 25 mg capsule 25 mg PO TID PRN (Reason: itching) Qty: 30 0RF metronidazole 500 mg tablet 500 mg PO BID 7 Days Qty: 14 0RF ibuprofen 600 mg tablet 600 mg PO TID PRN (Reason: pain) Qty: 20 0RF Interventions: ED Discharge Assessment Last Done: 08/17/24 12:46 Discharge Date/Time: 08/17/24 12:47 Print Language: Greenlandic
--- OUTSIDE RECORDS SUMMARY | 2024-08-17 09:57 | XMS_ITS | Encounter Summary ---
Author Organization [employer] Address [address] [facility] [address] [place] [address] Care Team Providers Care Geothermal Hvac Technician Name Role Phone Aaron Duffy MD Primary Care Provider [phone] Bhumi Lopez MD Primary Care Provider [phone] [facility] Primary Care Provider Unavailable Provider, Not In System Primary Care Provider Un available Reason for Visit * Reason Comments Med Refill Encounter Details Date Type Department Care Team (Late st Contact Info) Description 11/28/2022 Refill [facility] [address] [place], [place] [phone] [facility] [address] [place] [address] Mood disorder ([facility] Social History Tobacco Use Types Packs/Day Years Used Date Smoking Tobacco: Never Smokeless Tobacco: Never Comments Unknown Sex and Gender Information Value Date Recorded Sex Assigned at Female 09/18/2023 8:52 PM EDT Legal Sex Female 7:15 PM EDT Gender Identity Female 09/18/2023 7:15 PM EDT Sexual Orientation Choose not to disclose 2023 8:52 PM EDT Sexual Orientation Straight 09/18/2023 8: 52 PM EDT documented as of this encounter Plan of Treatment Not on file documented as of this encounter Visit Diagnoses Diagnosis Mood disorder (CMS/HCC) Unspecified episodic mood disorder documented in this encounter Care Teams Geothermal Hvac Technician Relationship Specialty Start Date End Date Aaron Duffy MD PCP - General Internal Medicine 01/30/23 04/16/23 Bhumi Lopez MD [address] [place] [id number] PCP - General Family Medicine 04/17/23 01/05/24 [facility] Only Unassigned PCP - General Family Medicine 01/06/24 08/03/24 Provider, Not In System PCP - General Family Medicine 08/04/24 Aaron Duffy MD Internal Medicine 04/17/23 10/27/[address] Housing Manager Recruitment 04/17/23 [facility] [address] [address] 01/06/24 08/03/24 documented as of this encounter
--- OUTSIDE RECORDS SUMMARY | 2024-08-17 09:57 | XMS_ITS | Encounter Summary ---
Author Organization [employer] Address [address] [facility] [address] [place] [address] Care Team Providers Care Finance Broker Name Role Phone Aaron Duffy MD Primary Care Provider [phone] Bhumi Lopez MD Primary Care Provider [phone] [facility] Primary Care Provider Unavailable Provider, Not In System Primary Care Provider Un available Reason for Visit * Reason Onset Date Comments New Patient Appt 11/07/2022 Encounter Details Date Type Department Care Team ([facility] st Contact Info) Description 11/07/2022 Telephone [facility] [address] [place], [place] [phone] Jadon Clark MD [address] [place], [place] [phone] New Patient Appt Social History Tobacco Use Types Packs/Day Years [...] PM EDT documented as of this encounter Miscellaneous Notes * Telephone Encounter - Ahiritza Chahal Chaves - 01/03/2023 10:58 AM EDT New Patients Benedict Chahal called to schedule New patient appt, pt did not answer left voicemail to give a call at [phone]. * Telephone Encounter - Anderson Chahal Andie - 11/07/2022 10:54 AM EDT BENEDICT Chahal Called Pt to Offer WRAPPER SORTER Appt, could not reach pt due to phone being out of service . documented in this encounter Plan of Treatment Not on file documented as of this encounter Visit Diagnoses Not on filedocumented in this encounter Care Teams Finance Broker Relationship Specialty Start Date End Date Aaron Duffy MD PCP - General Internal Medicine 01/30/23 04/16/23 Bhumi Lopez MD [address] [place] [address] PCP - General Family Medicine 04/17/23 01/05/24 [facility] Only Unassigned PCP - General Family Medicine 01/06/24 08/03/24 Provider, Not In System PCP - General Family Medicine 08/04/24 Aaron Duffy MD Internal Medicine 04/17/23 10/27/[address] Housing Modern And Contemporary Art Curator 04/17/[address] [address] 01/06/24 08/03/24 documented as of this encounter
--- OUTSIDE RECORDS SUMMARY | 2024-08-17 09:57 | XMS_ITS | Encounter Summary ---
Author Organization [employer] Address [address] [facility] 7t [place] [address] Care Team Providers Care Traveling Plant Operator Name Role Phone Bhumi Lopez MD Primary Care Provider [phone] Aaron Duffy MD Unavailable [phone] Pcp, [facility] Only Unassigned Primary Care Provider Unavailable Provider, Not In System Primary Care Provider Un available Reason for Visit * Reason Onset Date Comments Referral 10/23/2023 Pt calling for r eferral request to [address] [place] [address]. To program ([employer]) please advise thank you! Encounter Details Date Type Department Care Team ([facility] st Contact Info) Description 10/23/[address] [phone] Aaron Duffy MD [address] [place] [id number] Referral (Pt calling for referral request to [address] [place] [address]. To program ([employer]) please advise thank you! ) Social History Tobacco Use Types Packs/Day Years Used Date Smoking Tobacco: Never Passive Smoke Exposure: Never Smokeless Tobacco: Never Alcohol Use Standard Drinks/Week Comments Never 0 (1 standard drink = 0.6 oz pur e alcohol) Depression Answer Date Recorded Patient Health Questionnaire-9 Score 5 04/17/2023 Patient Health Questionnaire-9 Score 5 04/17/2023 Last PHQ-9: Questionnaire Data Not on file 1 06/18/2022 Depression Answer Date Recorded Patient Health Questionnaire-2 Score 2 04/17/2023 Comments Unknown Sex and Gender Information Value Date Recorded Sex Assigned at Female 09/18/2023 8:52 PM EDT Legal Sex Female 7:15 PM EDT Gender Identity Female 09/18/2023 7:15 PM EDT Sexual Orientation Choose not to disclose 2023 8:52 PM EDT Sexual Orientation Straight 09/18/2023 8: 52 PM EDT documented as of this encounter Miscellaneous Notes * Telephone Encounter - Aaron Duffy MD - 10/29/2023 10:17 AM EDT Unable to process. No OV since 11/02/2020. If she has a PCP elsewhere, she should contact that PCP. documented in this encounter Plan of Treatment Not on file documented as of this encounter Visit Diagnoses Not on filedocumented in this encounter Additional Health Concerns Assessment Noted Time PHQ-9 Depression Total Score: 5 04/17/20 23 1:03 PM EST documented as of this encounter Care Teams Traveling Plant Operator Relationship Specialty Start Date End Date Bhumi Lopez MD [address] [place] [address] PCP - General Family Medicine 04/17/23 01/05/24 [facility] Only Unassigned PCP - General Family Medicine 01/06/24 08/03/24 Provider, Not In System PCP - General Family Medicine 08/04/24 Aaron Duffy MD [address] [place] [address] Internal Medicine 04/17/23 10/27/[address] Housing Compliance Quality Performance Analyst 04/17/[address] [address] 01/06/24 08/03/24 documented as of this encounter
--- OUTSIDE RECORDS SUMMARY | 2024-08-17 09:57 | XMS_ITS | Encounter Summary ---
Author Organization [employer] Address [address] [facility] [address] [place] [address] Care Team Providers Care Professor Of Communication Arts Name Role Phone Aaron Duffy MD Primary Care Provider [phone] Bhumi Lopez MD Primary Care Provider [phone] Aaron Duffy MD Unavailable [phone] [facility] Primary Care Provider Unavailable Provider, Not In System Primary Care Provider Un available Reason for Visit * Reason Comments Med Refill Encounter Details Date Type Department Care Team (Late st Contact Info) Description 04/02/2023 Refill [facility] [address] [place] [address] [phone] Name, MD Salvador [address] [place] [address] Herpes labialis Social History Tobacco Use Types Packs/Day Years [...] as of this encounter Visit Diagnoses Diagnosis Herpes labialis Herpes simplex without mention of complication documented in this encounter Care Teams Professor Of Communication Arts Relationship Specialty Start Date End Date Aaron Duffy MD PCP - General Internal Medicine 01/30/23 04/16/23 Bhumi Lopez MD [address] [place] [address] PCP - General Family Medicine 04/17/23 01/05/24 [facility] Only Unassigned PCP - General Family Medicine 01/06/24 08/03/24 Provider, Not In System PCP - General Family Medicine 08/04/24 Aaron Duffy MD Internal Medicine 04/17/23 10/27/[address] Housing Behavioral Health Clinician 04/17/23 [facility] [address] [address] 01/06/24 08/03/24 documented as of this encounter
--- OUTSIDE RECORDS SUMMARY | 2024-08-17 09:57 | XMS_ITS | Encounter Summary ---
Author Organization [employer] Address [address] [facility] [address] [place] [address] Care Team Providers Care Lithographic Printing Machinist Name Role Phone Bhumi Lopez MD Primary Care Provider [phone] Aaron Duffy MD Unavailable [phone] Pcp, [facility] Only Unassigned Primary Care Provider Unavailable Provider, Not In System Primary Care Provider Un available Reason for Visit * Reason Onset Date Comments Med Refill 07/29/2023 Encounter Details Date Type Department Care Team (Late st Contact Info) Description 07/29/2023 Refill [facility] [address] [place] [address] Bhumi Lopez MD [address] [place] [address] Mood disorder (CMS/HCC) Social History Tobacco Use Types Packs/Day Years [...] encounter Miscellaneous Notes * Telephone Encounter - Lesley Mark - 07/29/2023 3:02 PM EDT TC from pt requesting medication refill. Medications needing refill : divalproex (Depakote) 250 MG EC tablet To be sent to: [id number] - [place], [place] - [address] documented in this encounter Plan of Treatment Not on file documented as of this encounter Visit Diagnoses Diagnosis Mood disorder (CMS/HCC) Unspecified episodic mood disorder documented in this encounter Additional Health Concerns Assessment Noted Time PHQ-9 Depression Total Score: 5 04/17/20 23 1:03 PM EST documented as of this encounter Care Teams Lithographic Printing Machinist Relationship Specialty Start Date End Date Bhumi Lopez MD [address] [place] [address] PCP - General Family Medicine 04/17/23 01/05/24 [facility] Only Unassigned PCP - General Family Medicine 01/06/24 08/03/24 Provider, Not In System PCP - General Family Medicine 08/04/24 Aaron Duffy MD [address] [place] [address] Internal Medicine 04/17/23 10/27/[address] Housing Saw Man 04/17/23 [facility] [address] [address] 01/06/24 08/03/24 documented as of this encounter
--- OUTSIDE RECORDS SUMMARY | 2024-08-17 09:57 | XMS_ITS | Encounter Summary ---
Author Organization [employer] Address [address] [facility] 7[address] [place] [address] Care Team Providers Care Manager Merchandising Name Role Phone Bhumi Lopez MD Primary Care Provider [phone] Pcp, [facility] Only Unassigned Primary Care Provider Unavailable Provider, Not In System Primary Care Provider Un available Reason for Visit * Reason Comments Med Refill Encounter Details Date Type Department Care Team (Late st Contact Info) Description 12/17/2023 Refill Family [facility] [address] [address] Bhumi Lopez MD [address] [place] [id number] Social History Tobacco Use Types Packs/Day Years [...] encounter Miscellaneous Notes * Telephone Encounter - Aldair Holcomb - 12/18/2023 12:01 AM EDT documented in this encounter Plan of Treatment Not on file documented as of this encounter Visit Diagnoses Not on filedocumented in this encounter Additional Health Concerns Assessment Noted Time PHQ-9 Depression Total Score: 5 04/17/20 23 1:03 PM EST documented as of this encounter Care Teams Manager Merchandising Relationship Specialty Start Date End Date Bhumi Lopez MD [address] [place] [address] PCP - General Family Medicine 04/17/23 01/05/24 Pcp [facility] Only Unassigned PCP - General Family Medicine 01/06/24 08/03/24 Provider, Not In System PCP - General Family Medicine 08/04/24 [facility] [address] [place], [place] Housing Drafting Layout Man 04/17/23 [facility] [address] [address] 01/06/24 08/03/24 documented as of this encounter
--- OUTSIDE RECORDS SUMMARY | 2024-08-17 09:57 | XMS_ITS | Encounter Summary ---
Author Organization [employer] Address [address] [facility] [address] [place] [address] Care Team Providers Care Sweetbread Trimmer Name Role Phone Aaron Duffy MD Primary Care Provider [phone] Bhumi Lopez MD Primary Care Provider [phone] Aaron Duffy MD Unavailable [phone] Primary Care Provider Unavailable Provider, Not In System Primary Care Provider Un available Reason for Visit * Reason Comments Med Refill Encounter Details Date Type Department Care Team (Late st Contact Info) Description 12/13/2022 Refill [facility] [address] [place], [place] [id number] [facility] [address] [place] [address] Mood disorder ([facility]) Social History Tobacco Use Types Packs/Day Years [...] disorder documented in this encounter Care Teams Sweetbread Trimmer Relationship Specialty Start Date End Date Aaron Duffy MD PCP - General Internal Medicine 01/30/23 04/16/23 Bhumi Lopez MD [address] [place] [id number] PCP - General Family Medicine 04/17/23 01/05/24 [facility] Only Unassigned PCP - General Family Medicine 01/06/24 08/03/24 Provider, Not In System PCP - General Family Medicine 08/04/24 Aaron Duffy MD Internal Medicine 04/17/23 10/27/[address] Housing Head Shipper 04/17/23 [facility] [address] [address] 01/06/24 08/03/24 documented as of this encounter
--- OUTSIDE RECORDS SUMMARY | 2024-08-17 09:57 | XMS_ITS | Clinical Summary ---
Author Organization [employer] Address [address] [place] [address] Care Team Providers Care Protection Mgr Name Role Phone Provider, Not In System Primary Care Provider Un available Allergies No known active allergies Medications * This document contains information received from the source organization and may not represent a complete record from that organization. etonogestrel-elut ing 68 mg contraceptive implant 1 each by Implant route 1 (one) time. Active clotrimazole (Lotrimin) 1 % cream Apply topically 2 times daily. 90 g 4 Active Diclofenac Sodium 1 % gel Apply 1 Application topically if needed in the morning, at noon, in the evening, and at bedtime (pain). 1 Active sennosides (Senokot) 8.6 MG tablet Take 17.2 mg by mouth if needed at bedtime. 2 Active jfozjds-Nrrvuul-Y ethyl Joe (Wiliam Diego Ultra Strength) 4-10-30 % creamIndications: Chronic right-sided thoracic back pain Apply 1 Application topically if needed in the morning, at noon, in the evening, and at bedtime (muscular pain). 57 g 2 4 Active Additional Information Patient not taking.Reported on 01/02/2024 Docusate Sodium (DSS) 100 MG capsuleIndication s:Anal pruritus,Hemorrho ids, unspecified hemorrhoid type Take 1 capsule (100 mg) by mouth if needed in the morning and at bedtime (firm stool). 60 capsule 1 4 025 Active Additional Information Patient not taking.Reported on 01/02/2024 acetaminophen (Tylenol) 325 MG tabletIndications :Chronic right-sided thoracic back pain Take 2 tablets (650 mg) by mouth every 6 (six) hours if needed for mild pain or moderate pain. 60 tablet 1 4 Active Additional Information Patient not taking.Reported on 01/02/2024 divalproex (Depakote) 250 MG EC tabletIndications :Mood disorder (CMS/HCC) TAKE 1 TABLET BY MOUTH TWICE DAILY 14 tablet 4 Active OLANZapine (ZyPREXA) 10 MG tabletIndications :Mood disorder (CMS/HCC) Take 1 tablet before bedtime 14 tablet 1 4 Active famotidine (Pepcid) 20 MG tablet Take 1 tablet (20 mg) by mouth if needed at bedtime for heartburn. 30 tablet 4 Active Oyster Shell Calcium 500 MG tablet TAKE 1 TABLET BY MOUTH ONCE DAILY 30 tablet 4 Active Multiple Vitamin (Tab-A-Mervin) tablet TOME REHANA TABLETA TODOS LOS D 30 tablet 4 Active Active Problems Problem Noted Date Diagnosed Date Bipolar disorder, current episode mixed, moderat e 01/02/2024 Overview (01/02/2024): Last Addressed Date: 11/02/2020; Status: Chronic; Recent NextGen Note: continue following with psychiatry Rectal bleeding 12/26/2023 Overview (01/02/2024): Last Assessment & Plan: See HPI - ongoing rectal bleeding for years, no recent acute worsening or red flag signs just persistence of sx. Does seem c/w hemorrhoids but topical tx not helpful per pt report, also unclear if applying correctly. Offered constipation meds but pt declined today. Given variable reporting and length of sx, would benefit from colo for further eval, also with egd add on given GERD - will notify pt's primary care team in [place] by [employer] messaging. Reviewed red flag s/sx and when to go to ED. Encouraged to RTC if sx persist/worsen. Will continue to support pt as possible. CTM for improvement. Prediabetes 12/21/2023 Overview (01/02/2024): Recent NextGen Note: A1C 6.07 may 2019 New diagnosis for pt 12/22/23, done upon routine screening for DM. Lab Results Component Value Date HGBA1C 5.7 12/22/2023 HGBA1C 5.4 01/31/2021 HGBA1C 5.5 09/06/2016 Last Assessment & Plan: New diagnosis for pt, done upon routine screening for DM. Reviewed A1c of 5.7% with pt. Will hold on start of metformin for now as pt hopes to make lifestyle changes first but will consider med start for prevention of further illness if A1c worsens at next check in 3-6 months. Encouraged healthy nutritional choices and exercise within limits of fpc setting though limited by resources and chronic illnesses. Plan to discuss with [place] care team and may consider referral for nutrition if pt interested. Encouraged to RTC as needed. CTM and will support pt as possible. Homeless single person 05/15/2023 Overview (01/02/2024): Last Assessment & Plan: Housed at [address]. Since this housing is for people experiencing chronic homelessness, still qualifies for primary care at [facility] at [address]. Encouraged to follow-up with me there Class 1 obesity with body ma ss index (BMI) of 32.0 to 32.9 in adult 04/17/2023 Assessment & Plan (04/17/2023 1:44 PM EST): Discussed calorie deficit, recommended reduction of 20-30% of maintenance calories; dispatch clerk referral offered. Recommended to decrease soda and sugary beverage consumption. Recommended at least 20 g per meal of protein to assist with satiety. Recommended at least 150 min/week of moderate intensity exercise. -Labs: CBC, Comp. Met. Panel, Lipid Panel, Magnesium, Urinalysis. Chronic right-sided thoracic back pain Breast cancer screening by mammogram 04/17/2023 Pterygium of right eye 04/17/2023 Herpes labialis 03/04/2023 Assessment & Plan (04/17/2023 1:43 PM EST): Patient that presented visit with concerns of Herpes labialis was advised to follow up for a PapSmear/Pelvic Exam. In addition, patient will be prescribed Oyster Shell Calcium to help with concern. Vaginal yeast infection 02/27/2023 Overview (02/27/2023): -Wet prep with ADELA significant for hyphae and budding yeast. -Candidiasis prevention discussed. Assessment & Plan (02/27/2023 11:25 AM EDT): -Wet prep with ADELA significant for hyphae and budding yeast. -Candidiasis prevention discussed. Hemorrhoids 02/27/2023 Overview (02/27/2023): -Rx cream given 02/27/2023 -Supportive care given -No evidence of thrombosis Assessment & Plan (02/27/2023 11:30 AM EDT): -Rx cream given 02/27/2023 -Supportive care given -No evidence of thrombosis Mood disorder 07/10/2022 Assessment & Plan (04/17/2023 2:38 PM EST): PROGRESS NOTE: ID: Macrina is a 42 y.o. or straight- identified cis-female (pronouns ), living at mother house, multiple cases of DCF, now her children are 22 and 18 and she has them with her. Reported struggling with housing and at same time that impact how she can support her children, whom per Macrina they both wants to be astronaut. She presented with previous documented hx of Mood Disorder self reported history of Depression, Anxiety, and Mood Disorder MH services including OP Psychotherapy psychopharmacology who presents for Anxiety symptoms. During IBH Consult Macrina presenting with depressed mood, loss of interests/pleasure , changes in sleep sleeping too much, change in appetite or weight overeating, fatigue/loss of energy, excessive worry/anxiety, difficulty controlling worry, restless/keyed up/On edge, easily fatigued, irritability, and sleep disturbance sleeping too much, and Abnormally elevated mood, Flight of ideas, Excessive goal directed activity, and Other: mood swings, more talkative, more outgoing than usual and racing. thoughts.; for a period of 18+ mo, for all symptoms in the context of family issues financial concern housing and lack of formal support. PCP prescribed depakote 250 mg, and Zypreza 10mg. PLAN: New/Additional Services needed Off-site services for , Behavioral Health Integration Plan External OP therapy referral and OP psychiatry Referral, Patient Self Plan Patient to utilize skills provided in intervention , Patient to reach out to [facility] team as needed, and Comply with medication Assessment & Plan (04/17/2023 1:43 PM EST): Patient that presented visit with concerns of bipolar disorder, would benefit from talking with a Therapist: patient accepted. Therefore, patient will be redirected to Care Management for further assistance. In addition, patient will be prescribed medications to treat concern. Bilateral bunions 04/16/2022 Overview (01/02/2024): Last Assessment & Plan: Pt presented to foot care with complaint of foot pain. Upon foot assessment, pt was found to have bilateral bunion areas. Skin assessment revealed no erythema, ecchymosis, wounds, foreign objects, swelling or drainage. Pt rated pain 3/10 on pain scale a rest, with increased pain upon ambulation. Gait is unaffected. Pt was provided with footcare and corn pads to apply to bunion areas. Pt was provided with supplies for changes as needed. Pt was given Ibuprofen 200mg x 2 doses for relief and instructed to take them every 4 to 6 hours apart with food or milk. Pt was encouraged to return to clinic or provider should problem persist or worsen. Pt understood and agreed with plan of care. Tinea pedis 09/18/2021 Overview (01/02/2024): Last Assessment & Plan: Pt has continued itching bilaterally on her feet that restarted a week or 2 ago. Pt did not recall exactly when it restarted. Pt had good result previously using antifungal powder on her feet. Pt provided with antifungal powder for her feet and encouraged to continue foot care that she has been doing. Leiomyoma of uterus 08/30/2021 Overview (01/02/2024): Last Assessment & Plan: TECHNICAL SERVICE SPECIALIST appt FriOctober 15 at 3:40pm at [facility] Hyperlipidemia 02/12/2021 Dry eye syndrome of both lacrimal glands 021 History of osteomyelitis 01/29/2021 Overview (01/02/2024): Recent NextGen Note: March 2019 [facility] [place] [facility] -> [place] [facility] vanco x 4 weeks May 2019 hospital eval at [facility] not concerning for new or expanding infection, but will refer back to ID to confirm follow up plan History of use of contraceptive intrauterine dev ice (IUD) 01/29/2021 Hyperopia of both eyes 01/29/2021 Overview (01/02/2024): Glasses ordered but optional- pt can wear for near or distance. Dysmenorrhea 09/02/2019 Overview (01/02/2024): Last Assessment & Plan: Period cramps. Gave ibuprofen x2 unit doses from clinic supply. Counseled on use. Also prescribed ibuprofen to take PRN period cramps, take with food History of 2019 novel coronavirus disease (COVID -19) 08/25/2019 Overview (01/02/2024): August 2019, stayed at the [facility] Last Assessment & Plan: Awaiting test results. Tested 08/22 at [place] site. Supportive care as has been receiving. Encouraged hydration. Given cough drops. APAP prn headache, sore throat. Low back pain, unspecified 05/14/2017 Overview (01/02/2024): Last Addressed Date: 06/01/2019; Status: Chronic; Recent NextGen Note: watermaster Osteomyelitis of lumbar spine treated March 2019 PT ordered, starts Jun 2019 Requested narcotics May 2019- PCP declined request Last Assessment & Plan: 39 yo female with PMH low back pain who recently completed treatment for osteomyelitis at [facility] with vancomycin for 4 weeks completed on 04/06/2019, who presented to the ED for back pain. Of note this back pain has been present for 2 years per patient. Back pain is associated with numbness, transient paralysis and difficulty walking per patient, well controlled with oxycodone. At [facility], MRI pelvis showed osteomyelitis involving the right sacral ala and spinous process of L5 vertebral body with associated myositis of adjacent paraspinal musculature. No facet, joint effusion seen to suggest septic arthritis. MRI of C,T,L spine was completed on 05/27 at [facility] which showed trace effusion and synovial cyst in the lumbar spine. These findings were consistent with prior imaging performed at [facility]. Ortho was consulted who felt this did not warrant further treatment and suggested outpatient follow up. ID was consulted as well, who felt she should be admitted for potential chronic smoldering osteomyelitis given that she recently completed 4 weeks of vancomycin. On exam, patient has tenderness over her entire spinal with no focal findings, no evidence of warmth or erythema. She has been afebrile, VSS. Her labs have been unremarkable with no demonstration of leukocytosis. These exam and past imaging findings are thus generally reassuring, however in the presentation of acute worsening back pain and patient complaints of numbness, transient paralysis and difficulty walking, all in the context of recent osteomyelitis diagnosed at [facility] and treated with IV antibiotics, infectious etiology cannot be ruled out. An MRI was performed on 06/08/2019 of the lumbar spine and bony pelvis, which per [facility] radiology reads no significant interval progression of periarticular edema and enhancement surrounding the right L5/S1 facet, they note abnormal right S1 nerve root enhancement in the lateral recess and exiting course, and ventrally directed synovial cyst extending into right lateral recess. These findings are unchanged per radiology from prior imaging. Ortho reviewed the MRI images and reported imaging findings concerning for infection and recommended IR-guided bone biopsy. -Ortho following (appreciate reccs) -ID following (appreciate reccs) -Blood cultures x2 NGTD from 06/06/2019 -MRI lumbar spine and bony pelvis were obtained 06/08/2019 -Per ortho/ID reccs, IR-guided biopsy of right sacral bone was performed on 06/11/2019 -Follow-up Bacterial culture with gram stain, AFB, fungal cultures, and pathology of bone specimen -Follow up with ID as outpatient -No antibiotics unless evidence of infection on culture/gram stain -Pain management with acetaminophen 975 mg q8h, oxycodone 5mg q4h PRN, tizanidine 4mg twice daily PRN Likely acute on chronic exacerbation in setting of [facility] etiology as well as conditions around homelessness. No concerning findings on PE or red flag signs on ROS though sx seem bothersome to pt. Reviewed [facility] records which showed that pt initially presented to [facility] in March 2019 with right sided low back pain radiating down to right leg making it difficult to walk and had MRI which showed marrow edema involving L5 spinous processes including the R L5-S1 facet. Though no growth with blood cultures, was treated for potential osteomyelitis with vancomycin via PICC x 4 weeks, finished 04/06/19. Has shown up to [facility] multiple times since then with similar sx but MRIs remain stable and unchanged over several months, as well as recent ESR/CRP wnl, so thought more c/w DJD - though differential given her hx is concerning for osteomyelitis, discitis, cord compression such as malignancy, tumor/abscess/hematoma. Differential otherwise considerable for radiculopathy/sciatica. No urinary sx to suggest UTI or pyelo. Given possibility of relapsing L5-S1 and R alar osteomyelitis given persistent MRIs, had a bone biopsy on 06/11/19 with synovial fluid culture with gram stain, AFB + fungal cultures and bone specimen - pt eloped before results came back but per f/u, no culture growth - this further supports the dx of DJD. More recent imaging as follows: - lumbar spine xrays similar 03/31/19 and 05/24/19 - wnl, also show IUD in correct location in pelvis - MRI's 05/27/19 - cervical spine wnl, thoracic spine with mild accentuation of normal thoracic kyphosis otherwise wnl, lumbar spine with edema + enhancement of the right posterior elements at L5-S1 extending into the adjacent paraspinal soft tissues with a trace right facet joint effusion and right subarticular synovial cyst 5mm (as consistent) - MRI of lumbar spine 06/08/19 unchanged, also had pelvis MRI which was unremarkable - MRI of lumbar spine on 07/17/19 unchanged - slighty increased soft tissue periarticular edema and enhancement surrounding the right L5/S1 facet. Notably, unchanged abnormal enhancement surrounds the right S1 nerve root within the lateral recess and along its exiting course. If there is clinic concern for an infectious process, this may represent septic arthritis of the right L5-S1 facet joint and correlation with lab evidence of infection/inflammation may be helpful as clinically indicated. Additional differential considerations include inflammatory degenerative change or sequela of recent trauma. Redemonstrated ventrally directed synovial cyst formation that extends into the right lateral recess. For now, attempting to treat conservatively with naproxen, tylenol, lidoderm patches prn pain. Medrol dose pack also helpful. Once COVID restrictions lifted, can re-refer to ortho + PT for next steps on longer term mgmt. May also consider neuro referral as well. Last Assessment & Plan: See HPI for details - chronic pain without current exacerbation. Likely aggravated by conditions around homelessness. No red flag signs on ROS so low suspicion for compression fx or cauda equina or infection. No recent weight loss or history to suggest malignancy. Will attempt to treat conservatively with ibuprofen, tylenol, and voltaren gel prn pain. Pt is frequently prescribed muscle relaxers but no indication for them at this time, reviewed that this is for short term use for exacerbations only. Pt educated appropriately on use and need to alternate meds to stay ahead of pain. Also discussed importance of gentle LBP stretches/exercises - pt agreeable to re-engage with PT, new referral placed today. If no improvement, can consider possible f/u imaging and ortho referral for ongoing mgmt. Reviewed supportive measures as well as red flag s/sx. Encouraged to RTC if sx persist/worsen. CTM. Cysts of both ovaries 09/25/2016 Overview (01/02/2024): Overview: US 09/21/2016: 1. Left ovarian mildly complex cyst measuring 4.0 cm with a single small nonvascular nodule. Nonurgent MRI is recommended for further characterization. No torsion. 2. Dermoid measuring 9 mm in the right ovary. Follow up with ultrasound is recommended in a year to ensure stability. Last Assessment & Plan: Asymptomatic b/l cysts (R small dermoid, L simple cyst). Will repeat TVUS to assess for resolution. If continues will review torsion precautions and discuss options of conservative v resection. Will do physical exam at follow up. Aprils Erick, sent to family planning. Last Assessment & Plan: Missed f/u appt TECHNICAL SERVICE SPECIALIST with h/o Fibroids and cyst to ovaries. Last transvaginal u/s 11/16/20. Will place referral. Onychomycosis 09/06/2016 Overview (01/02/2024): Last Assessment & Plan: Some thickening of both great toes and darkening in color. No sx tinea between toes or plantar aspects. Pt left clinic before able to discuss treatment as antifungal Miconazole cream not indicated. Unclear if treated with ciclopirox in past with success. Would need to discuss. GERD (gastroesophageal reflux disease) 6 Overview (01/02/2024): Last Assessment & Plan: C/o abdominal pain on the left upper abdominal quadrant 09/11. Passing gas and burping, denies any blood in the stool. B/p is elevated and headache present. See HPI, ROS and PE for details. Decline to meet with a provider, or go to the ER for an evaluation today. Discuss options for food choices. Sleep with the head of the bed elevated. Sit up for 30-60 minutes after taking the last bite of food. Two doses of Maalox given with instructions. RTC with any concerning symptoms. Right knee pain 04/02/2013 Encounters Date Type Department Care Team Description 07/28/2024 Patient Outreach [facility] [address] [place] [id number] Jadon Clark MD 07/16/2024 Population Health Risk Score [facility] [address] [phone] Provider, Population Health Generic 07/08/2024 Patient Outreach [facility] Case Management [address] [place] [phone] Linda'Amy Hugo CHW Care Management (CHW Amy Mckeon'Garnahomy called to introduce Care Management.) 06/30/2024 Patient Outreach [facility] Case Management [address] [place] [phone] Linda'Amy Hugo CHW Care Management (CHW Amy Mckeon'Garnahomy called to introduce Care Management.) 06/30/2024 Patient Outreach [facility] Case Management [address] [place] [phone] Linda'Amy Hugo [facility] Care Management (CHW Amy Mckeon'Garnahomy called to introduce Care Management.) from Last 3 Months Immunizations Name Administration Dates Next Due Influenza injectable quadrivalent preservative f ree 04/17/2023 Tdap 12/23/2022 Social History Tobacco Use Types Packs/Day Years Used Date Smoking Tobacco: Never Passive Smoke Exposure: Never Smokeless Tobacco: Never Tobacco Cessation:Counseling Given: Not Answered Alcohol Use Standard Drinks/Week Comments Never 0 [...] Orientation Straight 09/18/2023 8: 52 PM EDT Last Filed Vital Signs Vital Sign Reading Time Taken Comments Blood Pressure 107/72 01/02/2024 7:16 PM EDT Pulse 95 01/02/2024 7:16 PM EDT Temperature 37 ??C (98.6 ??F) 01/02/2024 7:16 PM EDT Respiratory Rate 18 01/02/2024 7:16 PM EDT Oxygen Saturation 98% 01/02/2024 7:16 PM EDT Inhaled Oxygen Concentration - - Weight 70.7 kg (155 lb 12.8 oz) 01/02/2024 7:16 PM EDT Height 156 cm (5' 1.42 ) 01/02/2024 7:16 PM EDT Body Mass Index 29.04 01/02/2024 7:16 PM EDT Plan of Treatment Health Maintenance Due Date Last Done Comments Diabetes: Hemoglobin A1C 1982 SDOH Screening 1982 Alcohol/Substance Use Screening 1994 Family Planning (PISQ) 1997 Hepatitis C Screening 2000 Mammogram 2022 Pap Smear 11/03/2023 11/02/2020 COVID-19 Vaccine ( season) 2024 04/10/2022, 05/30/2021, 06/22/2020, Additional history exists Influenza Vaccine (#1) 2024 , 01/30/2021, 01/25/2021, Additional history exists Depression Screening 04/17/2024 04/17/2023, 04/17/20 23 Tobacco Screening 10/28/2024 10/29/2023 Cervical Cancer Screening 11/02/2025 HPV/Cotest 11/02/2025 11/02/2020 Lipid Panel 04/18/2028 04/18/2023 Zoster Vaccines (1 of 2) 2032 DTaP/Tdap/Td Vaccines (8 - Td or Tdap) 12/23/2032 12/23/2022, 02/15/2016, 03/18/2015, Additional history exists RSV Patients and Patients Aged 60 years or older (1 - 1-dose 75+ series) 2057 IPV Vaccines Completed 05/31/1986, 01/03, 1982 Pneumococcal Vaccine: Pediatrics (0 to 5 Years) and At-Risk Patients (6 to 49) Years) Aged Out 08/30/2016 No longer eligible based on patient's age to complete this topic Hepatitis A Vaccines Aged Out 04/01/2017, 09/25/19 17 No longer eligible based on patient's age to complete this topic Hepatitis B Vaccines Completed 04/01/2017, 08/30/2016, 02/15/2016, Additional history exists Meningococcal Vaccine Aged Out 05/23/2017 No tara ariana eligible based on patient's age to complete this topic HIV Screening Completed 12/23/2023, 08/04, 01/22/2021, Additional history exists HIB Vaccines Aged Out No longer eligi ble based on patient's age to complete this topic HPV Vaccines Aged Out No longer eligi ble based on patient's age to complete this topic RSV under 20 months Aged Out No longe r eligible based on patient's age to complete this topic Rotavirus Vaccines Aged Out No longer eligible based on patient's age to complete this topic Procedures Procedure Name Priority Date/Time Associated Diagnosis Comments LIPID PANEL, STANDARD Routine 04/18/2023 8:49 AM EST Class 1 obesity with body mass index (BMI) of 32.0 to 32.9 in adult, unspecified obesity type, unspecified whether serious comorbidity present HM PAP/HPV Routine 11/02/2020 from Last 3 Months or Most Recently Relevant to Health Maintenance Results * (ABNORMAL) Lipid Panel, Standard (04/18/2023 8:49 AM EST) Triglycerides 119 <150 mg/dL [facility] Comment:Desirable Triglyceri de: less than 150 mg/dLBorderline High Triglyceride 150-199 mg/dLHigh Triglyceride: 200-499 mg/dLVery High Triglyceride: greater than or equal to 5OO mg/dL Cholesterol 215(H) <200 mg/dL [facility] Comment:Desirable Cholestero l: less than 200 mg/dLBorderline High Cholesterol: 200-239 mg/dLHigh Cholesterol: greater than 239 mg/dL LDL Cholesterol Calculated 134(H) <100 mg/dL [facility] Comment:Desirable LDL: less than 100 mg/dLNear Optimal/Above Optimal LDL: 110- 129 mg/dLBorderline High LDL: 130-159 mg/dLHigh LDL: 160-189 mg/dLVery High LDL: greater than or equal to 190 mg/dL HDL Cholesterol 58 >40 mg/dL [facility] LABS Comment:Desirable HDL: great er than 40 mg/dL Note: This HDL assay may give artificially low results in patients with liver disease. Blood Venous blood specimen / Unknown 04/18/2023 8:49 AM EST 04/18/2023 11:13 AM EST Bhumi Lopez MD LAB BLOOD ORDERABLES Final Re sult [facility] [address] [place] [phone] * PAP/HPV (11/02/2020) Pap Smear 1. NILM 1. NILM HPV Not Detected Undetected, Indeterminat e, Quantitative , Not Detected Historical Provider HEALTH MAINTENANCE Final Result from Last 3 Months or Most Recently Relevant to Health Maintenance [facility] Walk-in Appointment Scheduler C3 Care Teams Protection Mgr Relationship Specialty Start Date End Date Provider, Not In System PCP - General Family Medicine 08/04/[address] Housing Cosmetic Sales Consultant 04/17/23
--- OUTSIDE RECORDS SUMMARY | 2024-08-17 09:57 | XMS_ITS | Encounter Summary ---
Author Organization [employer] Address [address] [facility] 7t [place] [address] Care Team Providers Care Professor Of Early Childhood Education Name Role Phone Aaron Duffy MD Primary Care Provider [phone] Bhumi Lopez MD Primary Care Provider [phone] Aaron Duffy MD Unavailable Pcp, [facility] Only Unassigned Primary Care Provider Unavailable Provider, Not In System Primary Care Provider Un available Reason for Visit * Reason Comments Med Refill Encounter Details Date Type Department Care Team (Late st Contact Info) Description 04/12/2023 Refill [facility] [address] [place] [address] [phone] Name, MD Salvador [address] [place] [address] Mood disorder (CMS/[facility]) Social History Tobacco Use Types Packs/Day Years [...] this encounter Visit Diagnoses Diagnosis Mood disorder (CMS/[facility]) Unspecified episodic mood disorder documented in this encounter Care Teams Professor Of Early Childhood Education Relationship Specialty Start Date End Date Aaron Duffy MD PCP - General Internal Medicine 01/30/23 04/16/23 Bhumi Lopez MD [address] [place] [address] PCP - General Family Medicine 04/17/23 01/05/24 [facility] Only Unassigned PCP - General Family Medicine 01/06/24 08/03/24 Provider, Not In System PCP - General Family Medicine 08/04/24 Aaron Duffy MD Internal Medicine 04/17/23 10/27/23 [facility] [address] [place] [address] Housing Electrical Systems Designer 04/17/23 [facility] [address] [address] 01/06/24 08/03/24 documented as of this encounter
--- OUTSIDE RECORDS SUMMARY | 2024-08-17 09:57 | XMS_ITS | Encounter Summary ---
Author Organization [employer] Address [address] [facility] 7t [place] [address] Care Team Providers Care Dinkey Locomotive Operator Name Role Phone Aaron Duffy MD Primary Care Provider [phone] Bhumi Lopez MD Primary Care Provider [phone] Aaron Duffy MD Unavailable [phone] [facility] Primary Care Provider Unavailable Provider, Not In System Primary Care Provider Un available Reason for Visit * Reason Comments Med Refill Encounter Details Date Type Department Care Team (Late st Contact Info) Description 04/15/2023 Refill [facility] [address] [place], [place] [phone] Name, MD Salvador [address] [place] [address] Mood disorder (CMS/HCC); Herpes labialis Social History Tobacco Use Types Packs/Day Years Used Date Smoking Tobacco: Never Smokeless Tobacco: Never Depression Answer Date Recorded Patient Health Questionnaire-9 [...] Mood disorder (CMS/HCC) Unspecified episodic mood disorder Herpes labialis Herpes simplex without mention of complication documented in this encounter Care Teams Dinkey Locomotive Operator Relationship Specialty Start Date End Date Aaron Duffy MD PCP - General Internal Medicine 01/30/23 04/16/23 Bhumi Lopez MD [address] [place] [address] PCP - General Family Medicine 04/17/23 01/05/24 [facility] Only Unassigned PCP - General Family Medicine 01/06/24 08/03/24 Provider, Not In System PCP - General Family Medicine 08/04/24 Aaron Duffy MD Internal Medicine 04/17/23 10/27/[address] Housing Paper Cup Machine Operator 04/17/[address] [address] 01/06/24 08/03/24 documented as of this encounter
--- OUTSIDE RECORDS SUMMARY | 2024-08-17 09:57 | XMS_ITS | Encounter Summary ---
Author Organization [employer] Address [address] [facility] 7t [place] [address] Care Team Providers Care Conductor Yard Name Role Phone Bhumi Lopez MD Primary Care Provider [phone] Pcp, [facility] Only Unassigned Primary Care Provider Unavailable Provider, Not In System Primary Care Provider Un available Reason for Visit * Reason Comments Med Refill Encounter Details Date Type Department Care Team (Late st Contact Info) Description 12/25/2023 Refill [facility] [address] [place] [address] Alise Andre MD 199 [place] [address] Mood disorder (CMS/HCC) Social History Tobacco Use [...] Time PHQ-9 Depression Total Score: 5 04/17/20 1:03 PM EST documented as of this encounter Care Teams Conductor Yard Relationship Specialty Start Date End Date Bhumi Lopez MD [address] [place] [address] PCP - General Family Medicine 04/17/23 01/05/24 Pcp [facility] Only Unassigned PCP - General Family Medicine 01/06/24 08/03/24 Provider, Not In System PCP - General Family Medicine 08/04/24 [facility] [address] [place], [place] Housing Solar Photovoltaic Crew Lead 04/17/23 [facility] [address] [address] 01/06/24 08/03/24 documented as of this encounter
[2024-08-17] MEDS: Lidocaine 4 % Patch ADH..PATCH 1 PATCH TRANSDERMA (10:33)
[2024-08-17] MEDS: Acetaminophen 325 MG TABLET 650 MG PO (10:33)
[2024-08-17 12:46] VITALS: BP 154/74; PULSE 80; RESP 16; TEMP 523.2; TEMP 973.8; O2SAT 98
== END 2024-08-17 12:47 | disposition home or self-care (01) ==
PROVIDERS: Emergency Provider Emergency Medicine; PCP Family Medicine
DX: M54.30 Sciatica, unspecified side (principal); M43.17 Spondylolisthesis, lumbosacral region; F31.9 Bipolar disorder, unspecified; Z79.899 Other long term (current) drug therapy
CPT/HCPCS: 72100; 72220; 99283; 99284

== ENCOUNTER → 2024-08-17 10:05 | Outpatient (BNV) | payer MEDICAID, SELFPAY | PROVIDERS: Emergency Provider Emergency Medicine; PCP Family Medicine; Visit Provider Radiology Diagnostic Radiology | DX: M47.896 Other spondylosis, lumbar region (principal); M54.50 Low back pain, unspecified | CPT/HCPCS: 72100; 72220 ==

== ENCOUNTER 2024-08-25 01:35 | Emergency (ER) | payer MEDICAID, SELFPAY ==
[2024-08-25 01:40] VITALS: BP 116/75; PULSE 89; RESP 16; TEMP 36.8; O2SAT 99; BMI 28.5
[2024-08-25 02:04] LABS: MANUAL DIFF FLAG NO
[2024-08-25 02:05] LABS: Basophils Absolute Auto 0.1 X10*3/uL (0.0-0.2); Basophils Percent Auto 0.5 % (0-2); Eosinophils Absolute Auto 0.5 X10*3/uL (0.0-0.4); Eosinophils Percent Auto 5.1 % (0-4); Hematocrit 39.7 % (37.0-47.0); Hemoglobin 13.4 g/dl (12.0-16.0); Imm Gran Abs Auto 0.03 X10*3/uL (0.00-0.03); Imm Gran Pct Auto 0.3 % (0.0-0.4); Lymphocytes Absolute Auto 3.4 X10*3/uL (1.2-4.9); Lymphocytes Percent Auto 34.5 % (20-40); Mean Corpuscular HGB Conc 33.8 g/dl (31.0-35.0); Mean Corpuscular Hemoglobin 30.2 pg (27.0-33.0); Mean Corpuscular Volume 89.6 fL (80.0-98.0); Mean Platelet Volume 10.8 fL (9.4-12.3); Monocytes Absolute Auto 1.4 X10*3/uL (0.1-1.2); Monocytes Percent Auto 14.3 % (2-11); Neutrophils Absolute Auto 4.5 x10*3/uL (2.0-8.3); Neutrophils Percent Auto 45.3 % (45-73); Platelet Count 218 X10*3/uL (160-400); Red Blood Count 4.43 X10*6/uL (4.20-5.50); Red Cell Distribution Width 14.6 % (11.0-16.0); White Blood Count 9.9 X10*3/uL (4.8-10.8)
[2024-08-25 02:18] LABS: Anion Gap 16 (12-20); Blood Urea Nitrogen 17 mg/dL (9-16); Calcium 9.8 mg/dL (8.4-10.2); Carbon Dioxide 25 mmol/L (22-29); Chloride 105 mmol/L (96-108); Creatinine Clr Calc Pharmacy 84.4; Estimated Glomerular Filt Rate > 60; Glucose Random 91 mg/dL (60-115); Lipase 14 U/L (8-78); Potassium 4.2 mmol/L (3.3-5.1); Sodium 142 mmol/L (135-145)
[2024-08-25 02:41] LABS: Influenza A PCR NEGATIVE (Negative); Influenza B PCR NEGATIVE (Negative); Resp Syncy Virus RNA Qual PCR NEGATIVE (Negative); SARS COV2 PCR INHOUSE NEGATIVE (Negative)
[2024-08-25] MEDS: Ketorolac Tromethamine 30 MG/ML VIAL IVPUSH (03:12)
[2024-08-25] MEDS: ondansetron HCL 4 MG/2 ML VIAL IVPUSH (03:12)
[2024-08-25] MEDS: 0.9 % Sodium Chloride 1,000 ML 999 ML IV (03:12)
--- NOTE | 2024-08-25 03:18 | ED_ITS ---
HPI - General Adult General Chief complaint: Abdominal Pain Stated complaint: back and abd pain Time Seen by Provider: 08/25/24 02:42 Source: patient, RN notes reviewed, old records reviewed and bilingual interpreter Mode of arrival: ambulatory Limitations: language barrier History of Present Illness ED Provider: Katlyn HPI narrative: 44-year-old female presents for evaluation of diffuse abdominal pain, nausea vomiting, diarrhea. Her symptoms started a few hours prior to arrival. She reports associated congestion. She states that she feels ?dehydrated. ? She reports previous section but no other abdominal surgeries. Denies any sick contacts. She feels as if she has the flu. Her pain is 6/10 Denies any cough or shortness of breath pain Denies any chest pain. Denies any vaginal bleeding or discharge Related Data Home Medications ?Medication ?Instructions ?Recorded ?Confirmed divalproex 250 mg tablet,delayed 250 mg PO BID 07/29/20 07/29/20 release (Depakote) multivitamin 1 tab PO DAILY 07/29/20 07/29/20 olanzapine 10 mg tablet 10 mg PO DAILY 07/29/20 07/29/20 Previous Rx's ?Medication ?Instructions ?Recorded divalproex 250 mg tablet,delayed 250 mg PO BID Bipolar #60 tabs 08/09/20 release (Depakote) penicillin V potassium 500 mg 500 mg PO Q12H dental pain 10 08/09/20 tablet days #20 tabs ciprofloxacin HCl 500 mg tablet 500 mg PO Q12H 7 days #14 tabs 08/13/20 (Cipro) ciprofloxacin HCl 500 mg tablet 500 mg PO BID 14 days #28 tabs 08/19/20 (Cipro) divalproex 250 mg tablet,delayed 250 mg PO BID #60 tabs 08/19/20 release (Depakote) penicillin V potassium 500 mg 500 mg PO Q12H dental pain 10 08/19/20 tablet days #20 tabs amoxicillin 875 mg-potassium 1 tab PO Q12H 7 days #14 tabs 09/14/20 clavulanate 125 mg tablet (Augmentin) divalproex 250 mg tablet,delayed 250 mg PO BID 30 days #60 tabs 09/14/20 release (Depakote) phenazopyridine 100 mg tablet 200 mg (2 x 100 mg) PO TID PRN 09/14/20 (Pyridium) pain 6 doses #10 tabs amoxicillin 500 mg-potassium 1 tab PO BID #10 tabs 09/28/20 clavulanate 125 mg tablet (Augmentin) fluconazole 150 mg tablet 150 mg PO ONCE #1 tab 09/28/20 (Diflucan) ibuprofen 600 mg tablet 600 mg PO Q8H PRN pain #10 tabs 09/28/20 amoxicillin 875 mg-potassium 1 tab PO BID 7 days #14 tabs 12/23/22 clavulanate 125 mg tablet cyclobenzaprine 10 mg tablet 10 mg PO TID PRN muscle spasm #14 01/08/23 tabs ibuprofen 600 mg tablet 600 mg PO Q8H PRN pain #14 tabs 01/08/23 cefuroxime axetil 250 mg tablet 250 mg PO BID 7 days #14 tabs 02/25/23 diphenhydramine HCl 25 mg capsule 25 mg PO TID PRN itching #30 caps 02/25/23 (Benadryl) hydrocortisone acetate 25 mg 25 mg CA BID #12 ea 02/25/23 rectal suppository (Anusol-HC) metronidazole 500 mg tablet 500 mg PO BID 7 days #14 tabs 02/25/23 sucralfate 1 gram tablet 1 g PO TID #90 tabs 02/25/23 ibuprofen 600 mg tablet 600 mg PO TID PRN pain #20 tabs 06/17/23 betamethasone dipropionate 0.05 % 1 appl topical BID PRN skin 06/18/23 topical cream irritation 1 week #15 grams acetaminophen 500 mg tablet 500 mg PO Q6H PRN pain #30 tabs 08/17/24 (Tylenol Extra Strength) lidocaine 5 % topical patch 1 patch topical DAILY #30 ea 08/17/24 prednisone 20 mg tablet 40 mg (2 x 20 mg) PO DAILY 5 days 08/17/24 #10 tabs ondansetron 4 mg disintegrating 4 mg PO Q8H PRN nausea and 08/25/24 tablet vomiting #20 tabs Allergies Allergy/AdvReac Type Severity Reaction Status Date / Time No Known Allergies Allergy Verified 08/25/24 01:41 [No Known Allergies*] Review of Systems 2 Constitutional: Constitutional: Reports body ache(s), Reports chills, Denies fever(s), Reports malaise and Reports weakness Eyes: Eyes: Denies blurry vision ENT: Denies vertigo and Reports dizziness Cardiovascular: Cardiovascular: Denies chest pain and Denies dyspnea Respiratory: Respiratory: Denies cough and Denies dyspnea Gastrointestinal: Gastrointestinal: Reports abdominal pain, Denies melena, Denies hematochezia, Reports diarrhea, Reports loose stools, Reports nausea and Reports vomiting Musculoskeletal: Musculoskeletal: Denies back pain Integumentary/Breasts: Skin/Breast: Denies rash Neurologic: Denies vertigo, Reports dizziness and Reports weakness Psychiatric: Psychiatric: Denies anxiety PMFSH Past Medical History Medical History Bipolar 1 disorder Social History Social History Alcohol intake: never Smoked in Last 30 Days: No Use of substances other than those prescribed or required for medical reasons: No Advance Directives: No Advance Directives Information Provided: Yes Do you have a plan to hurt others: No Plan Physical Exam ED Vital Signs: Vital Signs - 24 hr 08/25/24 01:40 Temperature 98.2 F Pulse Rate 89 Respiratory Rate 16 Blood Pressure 116/75 Pulse Oximetry 99 Oxygen Delivery Method Room Air BMI result Body Mass Index 28.5 Const General: healthy appearing, comfortable, no acute distress, alert and awake Nutritional Appearance: well nourished Orientation/consciousness: patient oriented x3 HENMT Head: Yes normocephalic and Yes atraumatic Eyes Eyelids: Yes eyelids normal Conjunctivae: conjunctivae normal Sclerae: sclerae normal Corneas: corneas normal Pupils: Equal, round and reactive pupils present EOM: EOMs intact bilaterally Neck Neck: Yes full ROM Resp Effort & Inspection: normal respiratory effort, able to speak in complete sentences and not labored GI Inspection: No distended Palpation (GI): Soft to palpation, not firm, Tenderness to palpation present (GI) (Diffuse abdominal tenderness without guarding), no guarding and not rigid Auscultation: normoactive bowel sounds Skin General skin exam: elasticity normal Neuro General: patient oriented x3 Cranial nerves: Yes Equal, round and reactive pupils present and Yes Bilaterally intact EOM present Cognition (Neuro): normal cognition Extrem Other: Moving all extremities well without any obvious deformities Medications Administered Generic Name Dose Route Start Last Admin Trade Name Freq PRN Reason Stop Dose Admin Sodium Chloride 1,000 mls @ 999 mls/hr 08/25/24 03:00 08/25/24 03:12 Ns IV 08/25/24 04:00 999 mls/hr .Q1H1M DEANDRE Administration Discontinued Medications Generic Name Dose Route Start Last Admin Trade Name Edison PRN Reason Stop Dose Admin Ketorolac Tromethamine 30 mg 08/25/24 02:54 08/25/24 03:12 Ketorolac Tromethamine 30 Mg/Ml Vial IVPUSH 08/25/24 02:55 30 mg ONCE ONE Administration Ondansetron HCl 4 mg 08/25/24 02:54 08/25/24 03:12 Ondansetron Hcl 4 Mg/2 Ml Vial IVPUSH 08/25/24 02:55 4 mg ONCE ONE Administration Medical Decision Making Medical Decision Making [facility] Narrative: 44-year-old female presents for evaluation of a few hour history of nausea vomiting, diarrhea and congestion. This is consistent with a viral illness. Her vital signs are stable, she was afebrile, normotensive and she was not tachycardic or hypoxic. Her physical exam is reassuring, she does have some diffuse abdominal tenderness but no rebound or guarding. His abdomen is nondistended. She has no leukocytosis but does have a slight left shift. Chemistries are reassuring but I will add on LFTs and a lipase as well as a test. Given that she was quite well appearing with a reassuring exam we will defer CT imaging at this time. We will reconsider pending LFTs. We will treat the patient's symptoms with IV fluids, Zofran and Toradol. Less likely acute appendicitis as her pain is diffuse and actually left greater than right. Similarly less likely biliary colic. Differential Diagnosis Differential Diagnoses: The differential diagnosis associated with the presentation includes Gastroenteritis Viral syndrome Acute nausea and vomiting Influenza COVID-19 PUMA Dehydration Acute appendicitis Biliary colic Renal colic Lab Data [facility] Lab Attestation statement: I reviewed the patient's lab results. As above 08/25/24 01:59 08/25/24 01:59 Labs: Lab Results 08/25/24 Range/Units 01:59 WBC 9.9 (4.8-10.8) X10*3/uL RBC 4.43 (4.20-5.50) X10*6/uL Hgb 13.4 (12.0-16.0) g/dl Hct 39.7 (37.0-47.0) % MCV 89.6 (80.0-98.0) fL MCH 30.2 (27.0-33.0) pg MCHC 33.8 (31.0-35.0) g/dl RDW 14.6 (11.0-16.0) % Plt Count 218 (160-400) X10*3/uL MPV 10.8 (9.4-12.3) fL Immature Gran % (Auto) 0.3 (0.0-0.4) % Neut % (Auto) 45.3 (45-73) % Lymph % (Auto) 34.5 (20-40) % [place] % (Auto) 14.3 H (2-11) % Eos % (Auto) 5.1 H (0-4) % Baso % (Auto) 0.5 (0-2) % Lymph # (Auto) 3.4 (1.2-4.9) X10*3/uL [place] # (Auto) 1.4 H (0.1-1.2) X10*3/uL Eos # (Auto) 0.5 H (0.0-0.4) X10*3/uL Baso # (Auto) 0.1 (0.0-0.2) X10*3/uL Abs Immat Gran (auto) 0.03 (0.00-0.03) X10*3/uL Absolute Neuts (auto) 4.5 (2.0-8.3) x10*3/uL Absolute Nucleated RBC 0.000 (0.0-0.012) X10*3/uL Nucleated RBC % (auto) 0.0 (0.0-0.2) /100WBC Sodium 142 (135-145) mmol/L Potassium 4.2 (3.3-5.1) mmol/L Chloride 105 (96-108) mmol/L Carbon Dioxide 25 (22-29) mmol/L Anion Gap 16 (12-20) BUN 17 H (9-16) mg/dL Creatinine 0.80 (0.5-1.4) mg/dL Estim Creat Clear Calc 84.4 Estimated GFR > 60 Random Glucose 91 (60-115) mg/dL Calcium 9.8 (8.4-10.2) mg/dL Total Bilirubin 0.2 (0.0-1.0) mg/dL Direct Bilirubin < 0.2 (0.0-0.5) mg/dL AST 47 H (5-31) U/L ALT 49 H (0-31) U/L Alkaline Phosphatase 70 (39-117) U/L Total Protein 7.9 (6.5-8.0) g/dL Albumin 4.6 (3.5-5.0) g/dL Lipase 14 (8-78) U/L Beta HCG, Quant < 2 mIU/mL Influenza Type A (PCR) NEGATIVE (Negative) Influenza Type B (PCR) NEGATIVE (Negative) RSV RNA Qual (PCR) NEGATIVE (Negative) SARS-CoV-2 RNA (RT-PCR) NEGATIVE (Negative) Discharge Plan Discharge Clinical Impression: Abdominal pain Patient Disposition: Home, Self-Care Instructions: Gastroenteritis (ED) Additional Instructions: Your workup in the ER today is reassuring. Your symptoms are likely related to a virus but you tested negative for the flu, COVID-19, and RSV. Hydrate well, drink lots of fluids, small sips at a time. Use Zofran as needed for nausea and vomiting Prescriptions: New ondansetron 4 mg tablet,disintegrating 4 mg PO Q8H PRN (Reason: nausea and vomiting) Qty: 20 0RF No Action multivitamin Tablet 1 tab PO DAILY divalproex [Depakote] 250 mg Tablet,Delayed Release (Dr/Ec) 250 mg PO BID olanzapine 10 mg Tablet 10 mg PO DAILY fluconazole [Diflucan] 150 mg tablet 150 mg PO ONCE Qty: 1 0RF Rx Instructions: take on FridayOctober 01 ibuprofen 600 mg tablet 600 mg PO Q8H PRN (Reason: pain) Qty: 10 0RF amoxicillin-pot clavulanate [Augmentin] 500-125 mg tablet 1 tab PO BID Qty: 10 0RF penicillin V potassium 500 mg tablet 500 mg PO Q12H 10 Days Qty: 20 0RF divalproex [Depakote] 250 mg tablet,delayed release (DR/EC) 250 mg PO BID Qty: 60 0RF divalproex [Depakote] 250 mg tablet,delayed release (DR/EC) 250 mg PO BID Qty: 60 0RF penicillin V potassium 500 mg tablet 500 mg PO Q12H 10 Days Qty: 20 0RF ciprofloxacin HCl [Cipro] 500 mg tablet 500 mg PO BID 14 Days Qty: 28 0RF ciprofloxacin HCl [Cipro] 500 mg tablet 500 mg PO Q12H 7 Days Qty: 14 0RF amoxicillin-pot clavulanate [Augmentin] 875-125 mg tablet 1 tab PO Q12H 7 Days Qty: 14 0RF phenazopyridine [Pyridium] 100 mg tablet 200 mg PO TID PRN (Reason: pain) Qty: 10 0RF divalproex [Depakote] 250 mg tablet,delayed release (DR/EC) 250 mg PO BID 30 Days Qty: 60 0RF cyclobenzaprine 10 mg tablet 10 mg PO TID PRN (Reason: muscle spasm) Qty: 14 0RF ibuprofen 600 mg tablet 600 mg PO Q8H PRN (Reason: pain) Qty: 14 0RF betamethasone dipropionate 0.05 % cream 1 appl topical BID PRN (Reason: skin irritation) 7 Days Qty: 15 0RF prednisone 20 mg tablet 40 mg PO DAILY 5 Days Qty: 10 0RF acetaminophen [Tylenol Extra Strength] 500 mg tablet 500 mg PO Q6H PRN (Reason: pain) Qty: 30 0RF lidocaine 5 % adhesive patch,medicated 1 patch topical DAILY Qty: 30 0RF Rx Instructions: leave on most painful area for up to 12 hrs amoxicillin-pot clavulanate 875-125 mg tablet 1 tab PO BID 7 Days Qty: 14 0RF cefuroxime axetil 250 mg tablet 250 mg PO BID 7 Days Qty: 14 0RF hydrocortisone acetate [Anusol-HC] 25 mg suppository 25 mg CA BID Qty: 12 0RF sucralfate 1 gram tablet 1 g PO TID Qty: 90 0RF diphenhydramine HCl [Benadryl] 25 mg capsule 25 mg PO TID PRN (Reason: itching) Qty: 30 0RF metronidazole 500 mg tablet 500 mg PO BID 7 Days Qty: 14 0RF ibuprofen 600 mg tablet 600 mg PO TID PRN (Reason: pain) Qty: 20 0RF Print Language: Spanish
--- NOTE | 2024-08-25 03:21 | PC.NURSE ---
Iv placed, pt medicated per mar.
[2024-08-25 03:46] LABS: Alkaline Phosphatase 70 U/L (39-117)
[2024-08-25 03:49] LABS: Alanine Aminotransferase 49 U/L (0-31); Albumin Level 4.6 g/dL (3.5-5.0); Aspartate Amino Transferase 47 U/L (5-31); Bilirubin Direct < 0.2 mg/dL (0.0-0.5); Bilirubin Total 0.2 mg/dL (0.0-1.0); HCG Quantitative < 2 mIU/mL; Total Protein 7.9 g/dL (6.5-8.0)
--- NOTE | 2024-08-25 04:40 | PC.NURSE ---
Reviewed discharge instructions with pt. pt verbalized understanding, no sign of distress.
[2024-08-25 04:41] VITALS: BP 116/75; PULSE 89; RESP 16; TEMP 36.8; O2SAT 99
== END 2024-08-25 04:42 | disposition home or self-care (01) ==
PROVIDERS: Physician Assistant; Emergency Provider Emergency Medicine; PCP Family Medicine
DX: R10.9 Unspecified abdominal pain (principal); R11.2 Nausea with vomiting, unspecified; R19.7 Diarrhea, unspecified; Z03.818 Encounter for observation for suspected exposure to other biological agents ruled out
CPT/HCPCS: 0241U; 36415; 80048; 80076; 83690; 84702; 85025; 96361; 96374; 96375; 99284; 99285; J1885; J2405

== ENCOUNTER 2024-08-30 04:14 | Emergency (ER) | payer MEDICAID, SELFPAY ==
--- NOTE | 2024-08-30 | ECG_ITS ---
Test Reason : SOB/COUGH Blood Pressure : */* mmHG Vent. Rate : 78 BPM Atrial Rate : 78 BPM P-R Int : 158 ms QRS Dur : 70 ms QT Int : 370 ms P-R-T Axes : 43 28 16 degrees QTcB Int : 421 ms Normal sinus rhythm Normal ECG When compared with ECG of 08-Jan-2023 15:58, Non-specific change in ST segment in Anterior leads Referred By: Generic ED Physician Electronically Signed By: Alok Peters
[2024-08-30 04:17] VITALS: BP 105/70; PULSE 80; RESP 16; TEMP 36.6; O2SAT 98; BMI 29.3
--- OUTSIDE RECORDS SUMMARY | 2024-08-30 04:32 | XMS_ITS | Encounter Summary ---
Author Organization [employer] Address 75 [facility] 7t [place] [address] Care Team Providers Care Hand Assembler For Puller Over Name Role Phone Aaron Duffy MD Primary Care Provider [phone] Bhumi Lopez MD Primary Care Provider [phone] Aaron Duffy MD Unavailable Pcp, [facility] Only Unassigned Primary Care Provider Unavailable Provider, Not In System Primary Care Provider Un available Reason for Visit * Reason Comments Med Refill Encounter Details Date Type Department Care Team (Late st Contact Info) Description 04/12/2023 Refill [facility] [address] [place] [address] [phone] Name, MD Salvador [address] [place] [address] Mood disorder (CMS/[facility]) Social History Tobacco Use Types Packs/Day [...] this encounter Visit Diagnoses Diagnosis Mood disorder (CMS/[facility]) Unspecified episodic mood disorder documented in this encounter Care Teams Hand Assembler For Puller Over Relationship Specialty Start Date End Date Aaron Duffy MD PCP - General Internal Medicine 01/30/23 04/16/23 Bhumi Lopez MD [address] [place] [address] PCP - General Family Medicine 04/17/23 01/05/24 [facility] Only Unassigned PCP - General Family Medicine 01/06/24 08/03/24 Provider, Not In System PCP - General Family Medicine 08/04/24 Aaron Duffy MD Internal Medicine 04/17/23 10/27/23 [facility] [address] [place] [address] Housing Manager Electrical 04/17/23 [facility] [address] [address] 01/06/24 08/03/24 documented as of this encounter
--- OUTSIDE RECORDS SUMMARY | 2024-08-30 04:32 | XMS_ITS | Encounter Summary ---
Author Organization [employer] Address [address] [facility] 7t [place] [address] Care Team Providers Care Programmable Logic Controller Assembler Name Role Phone Aaron Duffy MD Primary Care Provider [phone] Bhumi Lopez MD Primary Care Provider [phone] Aaron Duffy MD Unavailable Pcp, [facility] Only Unassigned Primary Care Provider Unavailable Provider, Not In System Primary Care Provider Un available Reason for Visit * Reason Comments Med Refill Encounter Details Date Type Department Care Team (Late st Contact Info) Description 04/15/2023 Refill [facility] [address] [place], [place] [phone] Name, MD Salvador [address] [place] [address] Mood disorder (CMS/HCC); Herpes labialis Social History [...] complication documented in this encounter Care Teams Programmable Logic Controller Assembler Relationship Specialty Start Date End Date Aaron Duffy MD PCP - General Internal Medicine 01/30/23 04/16/23 Bhumi Lopez MD [address] [place] [address] PCP - General Family Medicine 04/17/23 01/05/24 [facility] Only Unassigned PCP - General Family Medicine 01/06/24 08/03/24 Provider, Not In System PCP - General Family Medicine 08/04/24 Aaron Duffy MD Internal Medicine 04/17/23 10/27/[address] Housing Patrol Police Sergeant 04/17/[address] [address] 01/06/24 08/03/24 documented as of this encounter
--- OUTSIDE RECORDS SUMMARY | 2024-08-30 04:32 | XMS_ITS | Encounter Summary ---
Author Organization [employer] Address [address] [facility] 7t [place] [address] Care Team Providers Care Air Export Logistics Manager Name Role Phone Aaron Duffy MD Primary Care Provider [phone] Bhumi Lpoez MD Primary Care Provider [phone] [facility] Primary Care Provider Unavailable Provider, Not In System Primary Care Provider Un available Reason for Visit * Reason Comments Med Refill Encounter Details Date Type Department Care Team (Late st Contact Info) Description 04/02/2023 Refill [facility] [address] [place] [address] [phone] Name, MD Salvador [address] [place] [address] Herpes labialis Social History Tobacco Use Types [...] complication documented in this encounter Care Teams Air Export Logistics Manager Relationship Specialty Start Date End Date Aaron Duffy MD PCP - General Internal Medicine 01/30/23 04/16/23 Bhumi Lopez MD [address] [place] [address] PCP - General Family Medicine 04/17/23 01/05/24 [facility] Only Unassigned PCP - General Family Medicine 01/06/24 08/03/24 Provider, Not In System PCP - General Family Medicine 08/04/24 Aaron Duffy MD Internal Medicine 04/17/23 10/27/[address] Housing Geneticist 04/17/23 [facility] [address] [address] 01/06/24 08/03/24 documented as of this encounter
--- OUTSIDE RECORDS SUMMARY | 2024-08-30 04:32 | XMS_ITS | Encounter Summary ---
Author Organization [employer] Address [address] [facility] 7t [place] [address] Care Team Providers Care Belt Notcher Name Role Phone Aaron Duffy MD Primary Care Provider [phone] Bhumi Lopez MD Primary Care Provider [facility] Primary Care Provider Unavailable Provider, Not In System Primary Care Provider Un available Reason for Visit * Reason Comments Med Refill Encounter Details Date Type Department Care Team (Late st Contact Info) Description 11/28/2022 Refill [facility] [address] [place], [place] [phone] [facility] [address] [place] [address] Mood disorder ([facility]) Social History Tobacco Use Types Packs/Day Years [...] disorder documented in this encounter Care Teams Belt Notcher Relationship Specialty Start Date End Date Aaron Duffy MD PCP - General Internal Medicine 01/30/23 04/16/23 Bhumi Lopez MD [address] [place] [id number] PCP - General Family Medicine 04/17/23 01/05/24 [facility] Only Unassigned PCP - General Family Medicine 01/06/24 08/03/24 Provider, Not In System PCP - General Family Medicine 08/04/24 Aaron Duffy MD Internal Medicine 04/17/23 10/27/[address] Housing Clerical And Administrative Workers 04/17/23 [facility] [address] [address] 01/06/24 08/03/24 documented as of this encounter
--- OUTSIDE RECORDS SUMMARY | 2024-08-30 04:32 | XMS_ITS | Encounter Summary ---
Author Organization [employer] Address [address] [facility] 7t [place] [address] Care Team Providers Care Middle School History Teacher Name Role Phone Aaron Duffy MD Primary Care Provider [phone] Bhumi Lopez MD Primary Care Provider [phone] Aaron Duffy MD Unavailable [phone] Primary Care Provider Unavailable Provider, Not In System Primary Care Provider Un available Reason for Visit * Reason Comments Med Refill Encounter Details Date Type Department Care Team (Late st Contact Info) Description 12/13/2022 Refill [facility] [address] [place], [place] [phone] [facility] [address] [place] [address] Mood disorder ([facility]) Social History Tobacco Use Types [...] disorder documented in this encounter Care Teams Middle School History Teacher Relationship Specialty Start Date End Date Aaron Duffy MD PCP - General Internal Medicine 01/30/23 04/16/23 Bhumi Lopez MD [address] [place] [id number] PCP - General Family Medicine 04/17/23 01/05/24 [facility] Only Unassigned PCP - General Family Medicine 01/06/24 08/03/24 Provider, Not In System PCP - General Family Medicine 08/04/24 Aaron Duffy MD Internal Medicine 04/17/23 10/27/[address] Housing Aircraft Time Clerk 04/17/23 [facility] [address] [address] 01/06/24 08/03/24 documented as of this encounter
--- OUTSIDE RECORDS SUMMARY | 2024-08-30 04:32 | XMS_ITS | Encounter Summary ---
Author Organization [employer] Address 75 [facility] 7t [place] [address] Care Team Providers Care Sheet Metal Worker Maintenance Name Role Phone Aaron Duffy MD Primary Care Provider [phone] Bhumi Lopez MD Primary Care Provider [phone] Aaron Duffy MD [facility] Un[facility] Primary Care Provider Unavailable Provider, Not In System Primary Care Provider Un available Reason for Visit * Reason Onset Date Comments New Patient Appt 11/07/2022 Encounter Details Date Type Department Care Team ([facility] st Contact Info) Description 11/07/2022 Telephone [facility] [address] [place], [place] [phone] Jadon Clark MD [address] [place], [place] [phone] New Patient Appt Social History Tobacco Use [...] left voicemail to give a call at [phone]. * Telephone Encounter - Anderson Chahal Andie - 11/07/2022 10:54 AM EDT BENEDICT Chahal Called Pt to Offer AIRCRAFT PAINTER Appt, could not reach pt due to phone being out of service . documented in this encounter Plan of Treatment Not on file documented as of this encounter Visit Diagnoses Not on filedocumented in this encounter Care Teams Sheet Metal Worker Maintenance Relationship Specialty Start Date End Date Aaron Duffy MD PCP - General Internal Medicine 01/30/23 04/16/23 Bhumi Lopez MD [address] [place] [address] PCP - General Family Medicine 04/17/23 01/05/24 [facility] Only Unassigned PCP - General Family Medicine 01/06/24 08/03/24 Provider, Not In System PCP - General Family Medicine 08/04/24 Aaron Duffy MD Internal Medicine 04/17/23 10/27/[address] Housing Visitor Services Specialist 04/17/[address] [address] 01/06/24 08/03/24 documented as of this encounter
--- OUTSIDE RECORDS SUMMARY | 2024-08-30 04:32 | XMS_ITS | Encounter Summary ---
Author Organization [employer] Address [address] [facility] 7t [place] [address] Care Team Providers Care Power Plant Operators Supervisor Name Role Phone Bhumi Lopez MD Primary Care Provider [phone] Pcp, [facility] Only Unassigned Primary Care Provider Unavailable Provider, Not In System Primary Care Provider Un available Reason for Visit * Reason Comments Med Refill Encounter Details Date Type Department Care Team (Late st Contact Info) Description 12/17/2023 Refill [facility] [address] [phone] Bhumi Lopez MD [address] [place] [id number] Social History Tobacco Use Types Packs/Day Years [...] documented as of this encounter Care Teams Power Plant Operators Supervisor Relationship Specialty Start Date End Date Bhumi Lopez MD [address] [place] [address] PCP - General Family Medicine 04/17/23 01/05/24 Pcp [facility] Only Unassigned PCP - General Family Medicine 01/06/24 08/03/24 Provider, Not In System PCP - General Family Medicine 08/04/24 [facility] [address] [place], [place] Housing Front Facer 04/17/23 [facility] [address] [address] 01/06/24 08/03/24 documented as of this encounter
--- OUTSIDE RECORDS SUMMARY | 2024-08-30 04:32 | XMS_ITS | Clinical Summary ---
Author Organization [employer] Address [address] [place] [address] Care Team Providers Care Wallcovering Texturer Name Role Phone Provider, Not In System [...] mouth if needed at bedtime. 2 Active eofbfmk-Lxqpytw-T ethyl Joe (Wiliam Diego Ultra Strength) 4-10-30 [...] will notify pt's primary care team in [place] by [employer] messaging. Reviewed red flag s/sx and when [...] nutritional choices and exercise within limits of jail setting though limited by resources and chronic illnesses. Plan to discuss with [place] care team and may consider referral for nutrition if pt interested. Encouraged to RTC as needed. CTM and will support pt as possible. Homeless single person 05/15/2023 Overview (01/02/2024): Last Assessment & Plan: Housed at [address] [facility]. Since this housing is for people experiencing chronic homelessness, still qualifies for primary care at [facility] at [address] [facility]. Encouraged to follow-up with me there Class 1 obesity with body ma ss index (BMI) of 32.0 to 32.9 in adult 04/17/2023 Assessment & Plan (04/17/2023 1:44 PM EST): Discussed calorie deficit, recommended reduction of 20-30% of maintenance calories; pediatric neuropsychologist referral offered. Recommended to decrease soda and [...] intervention , Patient to reach out to [facility] team as needed, and Comply with medication [...] 08/30/2021 Overview (01/02/2024): Last Assessment & Plan: DRY CHAIN PULLER appt FriOctober 15 at 3:40pm at [facility] Hyperlipidemia 02/12/2021 Dry eye syndrome of both lacrimal glands 021 History of osteomyelitis 01/29/2021 Overview (01/02/2024): Recent NextGen Note: March 2019 [facility] -> [place] [facility] -> [place] [facility] vanco x 4 weeks May 2019 hospital eval at [email or web address] not concerning for new or expanding infection, [...] Overview (01/02/2024): August 2019, stayed at the [facility] Last Assessment & Plan: Awaiting test results. Tested 08/22 at [place] site. Supportive care as has been receiving. Encouraged hydration. Given cough drops. APAP prn headache, sore throat. Low back pain, unspecified 05/14/2017 Overview (01/02/2024): Last Addressed Date: 06/01/2019; Status: Chronic; Recent NextGen Note: manager terminal Osteomyelitis of lumbar spine treated March 2019 PT ordered, starts Jun 2019 Requested narcotics May 2019- PCP declined request Last Assessment & Plan: 39 yo female with PMH low back pain who recently completed treatment for osteomyelitis at [facility] with vancomycin for 4 weeks completed on 04/06/2019, who presented to the ED for back pain. Of note this back pain has been present for 2 years per patient. Back pain is associated with numbness, transient paralysis and difficulty walking per patient, well controlled with oxycodone. At [facility], MRI pelvis showed osteomyelitis involving the right sacral ala and spinous process of L5 vertebral body with associated myositis of adjacent paraspinal musculature. No facet, joint effusion seen to suggest septic arthritis. MRI of C,T,L spine was completed on 05/27 at [facility] [[email or web address] which showed trace effusion and synovial cyst in the lumbar spine. These findings were consistent with prior imaging performed at [facility]. Ortho was consulted who [...] the context of recent osteomyelitis diagnosed at [facility] and treated with IV [...] though sx seem bothersome to pt. Reviewed [facility] records which showed that pt initially presented to [facility] in March 2019 with right sided low back pain radiating down to right leg making it difficult to walk and had MRI which showed marrow edema involving L5 spinous processes including the R L5-S1 facet. Though no growth with blood cultures, was treated for potential osteomyelitis with vancomycin via PICC x 4 weeks, finished 04/06/19. Has shown up to [facility] multiple times since then with similar [...] Will do physical exam at follow up. Aprilkelin Suarez, sent to family planning. Last Assessment & Plan: Missed f/u appt DRY CHAIN PULLER with h/o Fibroids and cyst to ovaries. [...] Encounters Date Type Department Care Team Description 08/24/2024 Patient Outreach [facility] Case Management [address] [place] [phone] Linda'Amy Hugo, CHW Care Management (CHW Amy O'Gara called to introduce Care Management.) 08/17/2024 Orders Only [facility] External Provider, [facility] 07/28/2024 Patient Outreach [facility] [address] [place] [address] Jadon Clark MD 07/16/2024 Population Health Risk Score [facility] Department [address] [place] [address] [phone] Provider, Population Health Generic 07/08/2024 Patient Outreach [facility] Case [address] [phone] O'Amy Hugo, CHW Care Management (CHW Amy O'Gara called to introduce Care Management.) 06/30/2024 Patient Outreach [facility] Case Management [address] [place] [phone] O'Amy Hugo, CHW Care Management (CHW Amy O'Gara called to introduce Care Management.) 06/30/2024 Patient Outreach [facility] Case [address] [phone] O'Amy Hugo, CHW Care Management (CHW Amy O'Gara called to introduce Care Management.) from Last [...] Health Maintenance Due Date Last Done Comments SDOH Screening 1982 Alcohol/Substance Use Screening 1994 Family Planning (PISQ) 1997 Hepatitis C Screening 2000 Mammogram 2022 Pap Smear 11/03/2023 11/02/2020 COVID-19 Vaccine ( season) 2024 04/10/2022, 05/30/2021, 06/22/2020, Additional history exists Influenza Vaccine (#1) 2024 , 01/30/2021, 01/25/2021, Additional history exists Depression Screening 04/17/2024 04/17/2023, 04/17/20 Tobacco Screening 10/28/2024 10/29/2023 Diabetes: Hemoglobin A1C 12/21/2024 12/22/2023, 09/2 01/2021 Cervical Cancer Screening 11/02/2025 HPV/Cotest 11/02/2025 11/02/2020 [...] Procedure Name Priority Date/Time Associated Diagnosis Comments LIPASE Routine 08/25/2024 1:59 AM EDT BASIC METABOLIC PANEL Routine 08/25/2024 1:59 AM EDT CBC WITH AUTO DIFFERENTIAL Routine 08/25/2024 1:59 AM EDT SARS COV2/INFLUENZA A/B AND RSV RNA QL NAAT Routine 08/25/2024 1:59 AM EDT XR SACRUM COCCYX 2+ VIEWS Routine 08/17/2024 10:05 AM EDT XR LUMBAR SPINE 2-3 VIEWS Routine 08/17/2024 10:05 AM EDT LIPID PANEL, STANDARD Routine 04/18/2023 8:49 AM EST Class 1 obesity with body mass index (BMI) of 32.0 to 32.9 in adult, unspecified obesity type, unspecified whether serious comorbidity present HM PAP/HPV Routine 11/02/2020 from Last 3 Months or Most Recently Relevant to Health Maintenance Results * SARS-CoV-2 RNA, Influenza A/B, and RSV RNA, Ql NAAT (08/25/2024 1:59 AM EDT) Pathologist [facility] Influenza A PCR NEGATIVE Negative [facility] Influenza B PCR NEGATIVE Negative [facility] Resp Syncy Virus RNA Qual PCR NEGATIVE Negative [facility] SARS COV2 PCR NEGATIVE Negative [facility] Comment:All test results mus t be correlated with clinical findings.Negative results do not preclude SARS-CoV2, influenza Avirus, influenza B virus and/or RSV infectionand should not be used as the sole basis for treatment orother patient management decisions. Negative results must becombined with clinical observations, patient history, andepidemiological information.This test has not been evaluated for monitoring treatment ofinfection.This test has been authorized by the FDA under an EmergencyUse Authorization (EUA) for use by authorized laboratories.Testing performed on the [employer] GeneXpert utilizingreal-time RT-PCR.All SARS CoV2 and positive influenza A/B results arereported to [facility]. 08/25/2024 1:59 AM EDT 08/25/2024 2:03 AM EDT us Generic External Data Provider LAB MICROBIOLOGY - GENERAL ORDERABLES Final Result [facility] [address] [place] [phone] * (ABNORMAL) CBC auto differential (08/25/2024 1:59 AM EDT) White Blood Count 9.9 4.8 - 10.8 X10*3/uL [facility] Red Blood Count 4.43 4.20 - 5.50 X10*6/uL [facility] Hemoglobin 13.4 12.0 - 16.0 g/dl [facility] Hematocrit 39.7 37.0 - 47.0 % [facility] Mean Corpuscular Volume 89.6 80.0 - 98.0 fL [facility] Mean Corpuscular Hemoglobin 30.2 27.0 - 33.0 pg [facility] Mean Corpuscular HGB Conc 33.8 31.0 - 35.0 g/dl [facility] Red Cell Distribution Width 14.6 11.0 - 16.0 % [facility] Platelet Count 218 160 - 400 X10*3/uL [facility] Mean Platelet Volume 10.8 9.4 - 12.3 fL [facility] Neutrophils Percent Auto 45.3 45 - 73 % [facility] Imm Gran Pct Auto 0.3 0.0 - 0.4 % [facility] Lymphocytes Percent Auto 34.5 20 - 40 % [facility] Monocytes Percent Auto 14.3(H) 2 - 11 % [facility] Eosinophils Percent Auto 5.1(H) 0 - 4 % [facility] Basophils Percent Auto 0.5 0 - 2 % [facility] NRBC Pct Auto 0.0 0.0 - 0.2 /100WBC [facility] Neutrophils Absolute Auto 4.5 2.0 - 8.3 x10*3/uL [facility] Imm Gran Abs Auto 0.03 0.00 - 0.03 X10*3/uL [facility] Lymphocytes Absolute Auto 3.4 1.2 - 4.9 X10*3/uL [facility] Monocytes Absolute Auto 1.4(H) 0.1 - 1.2 X10*3/uL [facility] Eosinophils Absolute Auto 0.5(H) 0.0 - 0.4 X10*3/uL [facility] Basophils Absolute Auto 0.1 0.0 - 0.2 X10*3/uL [facility] NRBC Abs Auto 0.000 0.0 - 0.012 X10*3/uL [facility] 08/25/2024 1:59 AM EDT 08/25/2024 2:03 AM EDT Generic External Data Provider LAB BLOOD ORDERAB LES Final Result Performing Organization Address [facility]/ZIP Co de Phone Number [facility] [address] [place] [phone] * Lipase (08/25/2024 1:59 AM EDT) Pathologist [facility] Lipase 14 8 - 78 U/L [facility] 08/25/2024 1:59 AM EDT 08/25/2024 2:03 AM EDT Generic External Data Provider LAB BLOOD ORDERAB LES Final Result Performing Organization Address [facility] Co de Phone Number [facility] [address] [place] [phone] * (ABNORMAL) Basic Metabolic Panel (08/25/2024 1:59 AM EDT) Pathologist [facility] Sodium 142 135 - 145 mmol/L [facility] Potassium 4.2 3.3 - 5.1 mmol/L [facility] Chloride 105 96 - 108 mmol/L [facility] Carbon Dioxide 25 22 - 29 mmol/L [facility] Anion Gap 16 12 - 20 [facility] Urea Nitrogen (BUN) 17(H) 9 - 16 mg/dL [facility] Creatinine, Serum 0.80 0.5 - 1.4 mg/dL [facility] Creatinine Clr Calc Pharmacy 84.4 [facility] Comment:Provided height and weight: 157.48 cm,70.8 kg.eGFR (calculated from the MDRD study equation) and eCrCl(calculated from the Cockcroft-Gault equation) are based ondifferent parameters and may not yield comparable results.If eCrCl result is absurd, please check patient'sheight/weight. Estimated Glomerular Filt Rate >60 [facility] Comment:Chronic Kidney Disea se: Estimated GFR < 60 mL/min/1.70k0Uhgfpe Kidney Disease: Estimated GFR < 15 mL/min/1.73m2 Glucose 91 60 - 115 mg/dL [facility] Calcium 9.8 8.4 - 10.2 mg/dL [facility] 08/25/2024 1:59 AM EDT 08/25/2024 2:03 AM EDT us Generic External Data Provider LAB BLOOD ORDERAB LES Final Result Performing Organization Address City/State/[facility] Co de Phone Number [facility] [address] [place] [phone] * XR Sacrum Coccyx 2+ Views (08/17/2024 10:05 AM EDT) Anatomical Region Laterality Modality Sacrum, Coccyx Radiographic Demetrice ging 08/17/2024 10:0 5 AM EDT Narrative 08/17/2024 10:51 AM EDT ? [facility] ?[address] ?[place] [address] ?XRay Report ? Signed ? Patient: Cormier,Leysa ?MR#: [id number] ? : 1980 ?Acct:[id number] ? Age/Sex: 44 / F ?ADM Date: 08/17/24 ? Loc: HO.ED ? Attending Dr: ? Ordering Physician: Gala Everett ?? Date of Service: 08/17/24 ?? Procedure(s): XR sacrum coccyx min 2V ?? Accession Number(s): [id number] ? cc: Gala Everett; Bhumi Lopez MD ? EXAMINATION: ?? XR SACRUM AND COCCYX ? CLINICAL INFORMATION: ?? back pain ? COMPARISON: ?? None available. ? TECHNIQUE: ?? 2 views of the sacrum and 2 views of the coccyx were obtained. ? FINDINGS: ?? There are no fractures. No bone, joint or soft tissue abnormality is ?? demonstrated. ? XR/XR sacrum coccyx min 2V ?? IMPRESSION: ?? Unremarkable sacrum and coccyx examination. ? Electronically signed by: ??Aram Melchor MD ??08/17/2024 10:48 AM EDT RP ? Dictated By: ?Aram Melchor MD ? Signed By: ?<Electronically signed by Aram Melchor MD in OV> ?08/17/24 1048 ? DD/ 1005 ? TD/TT: 08/17/24 1026 ? Staff Sonographer: MSM ? Procedure Note Donotuseinterpreter, Image - 08/17/2024 [place] [address] XRay Report Signed Patient: Ernestina Cormier#: [id number] : 1980Acct:[id number] Age/Sex: 44 / FADM Date: 08/17/24 Loc: .ED Attending Dr: Ordering Physician: Gala Everett Date of Service: 08/17/24 Procedure(s): XR sacrum coccyx min 2V Accession Number(s): [id number] cc: Gala Everett; Bhumi Lopez MD EXAMINATION: XR SACRUM AND COCCYX CLINICAL INFORMATION: back pain COMPARISON: None available. TECHNIQUE: 2 views of the sacrum and 2 views of the coccyx were obtained. FINDINGS: There are no fractures. No bone, joint or soft tissue abnormality is demonstrated. XR/XR sacrum coccyx min 2V IMPRESSION: Unremarkable sacrum and coccyx examination. Electronically signed by: Aram Melchor MD 08/17/2024 10:48 AM EDT Dictated By: Aram Melchor MD Signed By: <Electronically signed by Aram Melchor MD in OV> 08/17/24 1048 DD/ 1005 TD/TT: 08/17/24 1026 Staff Sonographer: MSM [facility] External Provider IMG XR PROCEDURES Final Result * XR Lumbar Spine 2-3 Views (08/17/2024 10:05 AM EDT) Anatomical Region Laterality Modality Spine, L-spine Radiographic Demetrice ging 08/17/2024 10:0 5 AM EDT Narrative 08/17/2024 10:50 AM EDT ? [facility] ?[address] ?[place] [address] ?XRay Report ? Signed ? Patient: Cormier,Leysa ?MR#: [id number] ? : 1980 ?Acct:[id number] ? Age/Sex: 44 / F ?ADM Date: 08/17/24 ? Loc: HO.ED ? Attending Dr: ? Ordering Physician: Gala Everett ?? Date of Service: 08/17/24 ?? Procedure(s): XR lumbar spine 2-3V ?? Accession Number(s): [id number] ? cc: Gala Everett; Bhumi Lopez MD ? EXAMINATION: ?? XR LUMBOSACRAL SPINE ? CLINICAL INFORMATION: ?? back pain ? COMPARISON: ?? None available. ? TECHNIQUE: ?? Three views of the lumbosacral spine. ? FINDINGS: ?? There is normal lumbar lordosis. There is grade 1 anterolisthesis L5 ?? over S1. Rest of the alignment and all vertebral heights are normal. ?? The disc heights are preserved normal. No fracture or lytic process ?? seen. SI joints are symmetrical and normal. ? XR/XR lumbar spine 2-3V ?? IMPRESSION: ?? Grade 1 anterolisthesis L5 over S1. ? Electronically signed by: ??Aram Melchor MD ??08/17/2024 10:47 AM EDT RP ? Dictated By: ?Jill,Aram S MD ? Signed By: ?<Electronically signed by Aram S Jill, MD in OV> ?08/17/24 1047 ? DD/ 1005 ? TD/TT: 08/17/24 1026 ? Staff Sonographer: MSM ? Procedure Note Lillian Burrows - 08/17/2024 [facility] [address] [place] [address] XRay Report Signed Patient: Ernestina Cormier#: [id number] : 1980Acct:[id number] Age/Sex: 44 / FADM Date: 08/17/24 Loc: HO.ED Attending Dr: Ordering Physician: Gala Everett Date of Service: 08/17/24 Procedure(s): XR lumbar spine 2-3V Accession Number(s): [id number] cc: Gala Everett; Bhumi Lopez MD EXAMINATION: XR LUMBOSACRAL SPINE CLINICAL INFORMATION: back pain COMPARISON: None available. TECHNIQUE: Three views of the lumbosacral spine. FINDINGS: There is normal lumbar lordosis. There is grade 1 anterolisthesis L5 over S1. Rest of the alignment and all vertebral heights are normal. The disc heights are preserved normal. No fracture or lytic process seen. SI joints are symmetrical and normal. XR/XR lumbar spine 2-3V IMPRESSION: Grade 1 anterolisthesis L5 over S1. Electronically signed by: Aram Melchor MD 08/17/2024 10:47 AM EDT Dictated By: Aram Melchor MD Signed By: <Electronically signed by Aram Melchor MD in OV> 08/17/24 1047 DD/ 1005 TD/TT: 08/17/24 1026 Staff Sonographer: CHRISTINA [facility] External Provider IMG XR PROCEDURES Final Result * (ABNORMAL) Lipid Panel, Standard (04/18/2023 8:49 AM EST) Triglycerides 119 <150 mg/dL [facility] Comment:Desirable Triglyceri de: less than 150 mg/dLBorderline High Triglyceride 150-199 mg/dLHigh Triglyceride: 200-499 mg/dLVery High Triglyceride: greater than or equal to 5OO mg/dL Cholesterol 215(H) <200 mg/dL [facility] Comment:Desirable Cholestero l: less than 200 mg/dLBorderline High Cholesterol: 200-239 mg/dLHigh Cholesterol: greater than 239 mg/dL LDL Cholesterol Calculated 134(H) <100 mg/dL [facility] Comment:Desirable LDL: less than 100 mg/dLNear Optimal/Above Optimal LDL: 110- 129 mg/dLBorderline High LDL: 130-159 mg/dLHigh LDL: 160-189 mg/dLVery High LDL: greater than or equal to 190 mg/dL HDL Cholesterol 58 >40 mg/dL [facility] Comment:Desirable HDL: great er than 40 mg/dL Note: This HDL assay may give artificially low results in patients with liver disease. Blood Venous blood specimen / Unknown 04/18/2023 8:49 AM EST 04/18/2023 11:13 AM EST Bhumi Lopez MD LAB BLOOD ORDERABLES Final Re sult [facility] [address] [place] [phone] * PAP/HPV (11/02/2020) Pap Smear 1. NILM 1. NILM HPV Not Detected Undetected, Indeterminat e, Quantitative , Not Detected us Historical Provider HEALTH MAINTENANCE Final Result from Last 3 Months or Most Recently Relevant to Health Maintenance Insurance j-Grab C3 j-Grab C3 Care Teams Wallcovering Texturer Relationship Specialty Start Date End Date Provider, Not In System PCP - General Family Medicine 08/04/[address] Housing Traffic Enumerator 04/17/23
--- OUTSIDE RECORDS SUMMARY | 2024-08-30 04:32 | XMS_ITS | Encounter Summary ---
Author Organization [employer] Address [address] [facility] [address]t [place] [address] Care Team Providers Care Lube Worker Name Role Phone Bhumi Loepz MD Primary Care Provider [phone] Pcp, [facility] Only Unassigned Primary Care Provider Unavailable Provider, Not In System Primary Care Provider Un available Reason for Visit * Reason Comments Med Refill Encounter Details Date Type Department Care Team (Late st Contact Info) Description 12/25/2023 Refill [facility] Medical [address] [place] [phone] Alise Andre MD [address] [place] [address] Mood disorder (CMS/HCC) Social History Tobacco Use [...] documented as of this encounter Care Teams Lube Worker Relationship Specialty Start Date End Date Bhumi Lopez MD [address] [place] [address] PCP - General Family Medicine 04/17/23 01/05/24 Pcp [facility] Only Unassigned PCP - General Family Medicine 01/06/24 08/03/24 Provider, Not In System PCP - General Family Medicine 08/04/24 [facility] [address] [place], [place] Housing Plastic Panel Installer 04/17/23 [facility] [address] [address] 01/06/24 08/03/24 documented as of this encounter
--- OUTSIDE RECORDS SUMMARY | 2024-08-30 04:32 | XMS_ITS | Encounter Summary ---
Author Organization [employer] Address [address] [facility] [address] [place] [address] Care Team Providers Care Flux Core Welder Name Role Phone Bhumi Lopez MD Primary Care Provider [phone] Aaron Duffy MD Unavailable [phone] Pcp, [facility] Only Unassigned Primary Care Provider Unavailable Provider, Not In System Primary Care Provider Un available Reason for Visit * Reason Onset Date Comments Med Refill 07/29/2023 Encounter Details Date Type Department Care Team (Late st Contact Info) Description 07/29/2023 Refill [facility] [address] [place] [address] Bhumi Lopez MD [address] [place] [address] Mood disorder (CMS/HCC) Social History Tobacco Use [...] MG EC tablet To be sent to: [id number] - [place], [place] - [address] documented in this encounter Plan of Treatment Not on file documented as of this encounter Visit Diagnoses Diagnosis Mood disorder (CMS/HCC) Unspecified episodic mood disorder documented in this encounter Additional Health Concerns Assessment Noted Time PHQ-9 Depression Total Score: 5 04/17/20 23 1:03 PM EST documented as of this encounter Care Teams Flux Core Welder Relationship Specialty Start Date End Date Bhumi Lopez MD [address] [place] [address] PCP - General Family Medicine 04/17/23 01/05/24 [facility] Only Unassigned PCP - General Family Medicine 01/06/24 08/03/24 Provider, Not In System PCP - General Family Medicine 08/04/24 Aaron Duffy MD [address] [place] [address] Internal Medicine 04/17/23 10/27/[address] Housing Rouge Presser 04/17/23 [facility] [address] [address] 01/06/24 08/03/24 documented as of this encounter
[2024-08-30 05:53] VITALS: BP 119/65; PULSE 83; RESP 16; TEMP 36.4; O2SAT 97
--- NOTE | 2024-08-30 08:22 | PC.NURSE ---
assumed care of pt at 0700, pt resting quietly w eyes closed, RR even and unlabored. pending provider p/u.
[2024-08-30 08:33] LABS: OBS1 NEGATIVE (NEGATIVE)
[2024-08-30 08:34] LABS: OBS Int Ctl Valid YES
--- NOTE | 2024-08-30 09:05 | ED.GENADULT ---
HPI - General Adult General Chief complaint: General Medical Stated complaint: cough Time Seen by Provider: 08/30/24 05:22 Source: patient, RN notes reviewed and old records reviewed Mode of arrival: ambulatory History of Present Illness ED Provider: Marisol Wisdom PA-C HPI narrative: 44-year-old female with a past medical history bipolar, homelessness, presenting to the ED complaining of URI symptoms with dry cough x few days, admits was evaluated in ED and diagnosed with viral illness. Also reports abdominal discomfort and bright red rectal bleeding x yesterday. States bleeding is on toilet paper. Denies anticoagulation use, rectal pain, nausea or vomiting. Denies CP/SOB, sick contacts. Related Data Home Medications ?Medication ?Instructions ?Recorded ?Confirmed divalproex 250 mg tablet,delayed 250 mg PO BID 07/29/20 07/29/20 release (Depakote) multivitamin 1 tab PO DAILY 07/29/20 07/29/20 olanzapine 10 mg tablet 10 mg PO DAILY 07/29/20 07/29/20 Previous Rx's ?Medication ?Instructions ?Recorded divalproex 250 mg tablet,delayed 250 mg PO BID Bipolar #60 tabs 08/09/20 release (Depakote) penicillin V potassium 500 mg 500 mg PO Q12H dental pain 10 08/09/20 tablet days #20 tabs ciprofloxacin HCl 500 mg tablet 500 mg PO Q12H 7 days #14 tabs 08/13/20 (Cipro) ciprofloxacin HCl 500 mg tablet 500 mg PO BID 14 days #28 tabs 08/19/20 (Cipro) divalproex 250 mg tablet,delayed 250 mg PO BID #60 tabs 08/19/20 release (Depakote) penicillin V potassium 500 mg 500 mg PO Q12H dental pain 10 08/19/20 tablet days #20 tabs amoxicillin 875 mg-potassium 1 tab PO Q12H 7 days #14 tabs 09/14/20 clavulanate 125 mg tablet (Augmentin) divalproex 250 mg tablet,delayed 250 mg PO BID 30 days #60 tabs 09/14/20 release (Depakote) phenazopyridine 100 mg tablet 200 mg (2 x 100 mg) PO TID PRN 09/14/20 (Pyridium) pain 6 doses #10 tabs amoxicillin 500 mg-potassium 1 tab PO BID #10 tabs 09/28/20 clavulanate 125 mg tablet (Augmentin) fluconazole 150 mg tablet 150 mg PO ONCE #1 tab 09/28/20 (Diflucan) ibuprofen 600 mg tablet 600 mg PO Q8H PRN pain #10 tabs 09/28/20 amoxicillin 875 mg-potassium 1 tab PO BID 7 days #14 tabs 12/23/22 clavulanate 125 mg tablet cyclobenzaprine 10 mg tablet 10 mg PO TID PRN muscle spasm #14 01/08/23 tabs ibuprofen 600 mg tablet 600 mg PO Q8H PRN pain #14 tabs 01/08/23 cefuroxime axetil 250 mg tablet 250 mg PO BID 7 days #14 tabs 02/25/23 diphenhydramine HCl 25 mg capsule 25 mg PO TID PRN itching #30 caps 02/25/23 (Benadryl) hydrocortisone acetate [address] BID #12 ea 02/25/23 rectal suppository (Anusol-HC) metronidazole 500 mg tablet 500 mg PO BID 7 days #14 tabs 02/25/23 sucralfate 1 gram tablet 1 g PO TID #90 tabs 02/25/23 ibuprofen 600 mg tablet 600 mg PO TID PRN pain #20 tabs 06/17/23 betamethasone dipropionate 0.05 % 1 appl topical BID PRN skin 06/18/23 topical cream irritation 1 week #15 grams acetaminophen 500 mg tablet 500 mg PO Q6H PRN pain #30 tabs 08/17/24 (Tylenol Extra Strength) lidocaine 5 % topical patch 1 patch topical DAILY #30 ea 08/17/24 prednisone 20 mg tablet 40 mg (2 x 20 mg) PO DAILY 5 days 08/17/24 #10 tabs ondansetron 4 mg disintegrating 4 mg PO Q8H PRN nausea and 08/25/24 tablet vomiting #20 tabs Allergies Allergy/AdvReac Type Severity Reaction Status Date / Time No Known Allergies Allergy Verified 08/30/24 04:20 [No Known Allergies*] Review of Systems Review of Systems: Yes all other systems are reviewed and are negative Constitutional: Constitutional: Reports as per [facility] Past Medical History Attestation statement: The following information was validated with the patient. Source: old records reviewed Medical History Bipolar 1 disorder Social History Social History Alcohol intake: never Smoked in Last 30 Days: No Use of substances other than those prescribed or required for medical reasons: No Advance Directives: No Advance Directives Information Provided: Yes Patient : No Physical Exam ED Vital Signs: Vital Signs - 24 hr 08/30/24 04:17 08/30/24 05:53 08/30/24 12:17 Temperature 97.9 F 97.5 F 98.3 F Pulse Rate 80 83 82 Respiratory Rate 16 16 16 Blood Pressure 105/70 119/65 114/60 Pulse Oximetry 98 97 97 Oxygen Delivery Method Room Air Room Air Room Air 08/30/24 14:21 Temperature Pulse Rate 86 Respiratory Rate 16 Blood Pressure 101/64 Pulse Oximetry 98 Oxygen Delivery Method Room Air BMI result Body Mass Index 29.3 Const General: cooperative, healthy appearing and no acute distress Orientation/consciousness: patient oriented x3 Limitations: no limitations HENMT Head: Yes normal to inspection and Yes atraumatic Ears: hearing grossly normal bilaterally General nose exam: Normal external nose present Face and sinus: Yes normal facial exam Eyes General: appearance normal, both eyes and all related structures EOM: EOMs intact bilaterally Neck Neck: Yes normal visual inspection and Yes no meningeal signs Resp Effort & Inspection: normal respiratory effort and no respiratory distress Auscultation: clear to auscultation bilaterally, no crackles, no rhonchi and no wheezes Cardio Rate: regular rate Heart sounds: S1 normal heart sound present and S2 normal heart sound present GI Inspection: Yes normal to inspection Palpation (GI): Soft to palpation, nontender, no guarding and not rigid Rectal Exam - Female: Internal hemorrhoid(s) present (With mild prolapse, no active bleeding. Nontender) Skin Rashes: no rashes Wounds: no wounds Neuro General: patient oriented x3, tone normal and no meningeal signs Cranial nerves: Yes CN's II-XII intact bilaterally Gait exam (Neuro): Normal gait present Extrem General: Yes normal to inspection Course Course Course Narrative: -1100--labs reassuring. Occult stool negative -viral testing negative -1234--UA negative. Tox screen positive for cocaine and marijuana. Patient tolerating p.o. in the ED. > patient actively having auditory hallucinations in the ED, having full conversation with herself/the wall. Will obtain CARE team sujit -1422--CARE team evaluated patient and she is cleared for discharge. Admission offered to patient by CARE team for medication initiation however patient declined. Patient does not want to lose her bed at [facility] living, will provided with no of her recent ED visits Medical Decision Making Medical Decision Making MDM Narrative: 44-year-old female with a past medical history bipolar, homelessness, presenting to the ED complaining of URI symptoms with dry cough x few days, admits was evaluated in ED and diagnosed with viral illness. Also reports abdominal discomfort and bright red rectal bleeding x yesterday. On exam sleeping comfortably, vital signs stable, NAD/nontoxic appearing, abdomen is soft/nontender, lungs CTA, small prolapsed internal hemorrhoid appreciated on rectal exam without active bleeding or thrombosis. Concern for URI vs hemorrhoidal bleeding vs ? GI bleed although lower suspicion at this time. Low suspicion for appendicitis/diverticulitis, cholecystitis/lithiasis. Unlikely ACS Plan: EKG, Viral testing, labs, UA, occult stool Please refer to course for remaining clinical decision making, interpretation of labs/imaging results, and discussions with consultants and/or family members. Differential Diagnosis Differential Diagnoses: The differential diagnosis associated with the presentation includes As above Admission/Observation Consideration of admission/observation: Escalation of care including admission/observation considered Lab Data [facility] Lab Attestation statement: I reviewed the patient's lab results. 08/30/24 09:12 08/30/24 09:12 Labs: Lab Results 08/30/24 08/30/24 08/30/24 Range/Units 08:27 09:12 11:58 WBC 10.3 (4.8-10.8) X10*3/uL RBC 4.19 L (4.20-5.50) X10*6/uL Hgb 12.8 (12.0-16.0) g/dl Hct 36.9 L (37.0-47.0) % MCV 88.1 (80.0-98.0) fL MCH 30.5 (27.0-33.0) pg MCHC 34.7 (31.0-35.0) g/dl RDW 14.4 (11.0-16.0) % Plt Count 279 D (160-400) X10*3/uL MPV 10.4 (9.4-12.3) fL Immature Gran % (Auto) 0.2 (0.0-0.4) % Neut % (Auto) 47.2 (45-73) % Lymph % (Auto) 37.7 (20-40) % [facility] % (Auto) 10.7 (2-11) % Eos % (Auto) 3.7 (0-4) % Baso % (Auto) 0.5 (0-2) % Lymph # (Auto) 3.9 (1.2-4.9) X10*3/uL [facility] # (Auto) 1.1 (0.1-1.2) X10*3/uL Eos # (Auto) 0.4 (0.0-0.4) X10*3/uL Baso # (Auto) 0.1 (0.0-0.2) X10*3/uL Abs Immat Gran (auto) 0.02 (0.00-0.03) X10*3/uL Absolute Neuts (auto) 4.9 (2.0-8.3) x10*3/uL Absolute Nucleated RBC 0.000 (0.0-0.012) X10*3/uL Nucleated RBC % (auto) 0.0 (0.0-0.2) /100WBC Sodium 144 (135-145) mmol/L Potassium 4.0 (3.3-5.1) mmol/L Chloride 106 (96-108) mmol/L Carbon Dioxide 26 (22-29) mmol/L Anion Gap 16 (12-20) BUN 15 (9-16) mg/dL Creatinine 0.68 (0.5-1.4) mg/dL Estim Creat Clear Calc 100.5 Estimated GFR > 60 Random Glucose 84 (60-115) mg/dL Calcium 9.6 (8.4-10.2) mg/dL Magnesium 1.7 (1.6-2.6) mg/dL Total Bilirubin 0.2 (0.0-1.0) mg/dL Direct Bilirubin < 0.2 (0.0-0.5) mg/dL AST 27 (5-31) U/L ALT 44 H (0-31) U/L Alkaline Phosphatase 71 (39-117) U/L Total Protein 7.4 (6.5-8.0) g/dL Albumin 4.3 (3.5-5.0) g/dL Lipase 30 (8-78) U/L Urine Color Yellow Urine Appearance Clear Urine pH 6.0 (5.0-9.0) Ur Specific [place] >= 1.030 H (1.005-1.025) Urine Protein Negative (Neg-Trace) mg/dL Urine Glucose (UA) Negative (Negative) mg/dL Urine Ketones Negative (Negative) mg/dL Urine Blood Negative (Negative) Urine Nitrite Negative (Negative) Ur Leukocyte Esterase Negative (Negative) Urine Test NEGATIVE (NEGATIVE) Stool Occult Blood NEGATIVE (NEGATIVE) Urine Opiates Screen Not Detected (Not Detect) Ur Buprenorphine Scrn Not Detected (Not Detect) ng/mL Ur Oxycodone Screen Not Detected (Not Detect) ng/mL Urine Methadone Screen Not Detected (Not Detect) ng/mL Urine Fentanyl Screen Not Detected (Not Detect) Ur Barbiturates Screen Not Detected (Not Detect) Ur Phencyclidine Scrn Not Detected (Not Detect) Ur Amphetamines Screen Not Detected (Not Detect) U Benzodiazepines Scrn Not Detected (Not Detect) Urine Cocaine Screen POSITIVE H (Not Detect) U Marijuana (THC) Screen POSITIVE H (Not Detect) Influenza Type A (PCR) NEGATIVE (Negative) Influenza Type B (PCR) NEGATIVE (Negative) RSV RNA Qual (PCR) NEGATIVE (Negative) SARS-CoV-2 RNA (RT-PCR) NEGATIVE (Negative) Independent Interpretation I performed an independent interpretation of an: EKG (My interpretation EKG normal sinus rhythm rate of 78. CT interval 158. QTC 421. Nonspecific change in ST segment in anterior leads when compared to prior. No STEMI) Radiology Impression Discussion of test interpretation with radiology: I have reviewed the radiologist's reading. External Record Review External record reviewed: Inpatient record, Office record, Outpatient record, Prior outpatient labs, Prior outpatient radiology, Primary care record and Outside ED record Tests considered The following testing was considered but not selected: As above Prescription Management I considered prescription management with: Other Chronic Conditions Patient?s care impacted by: Other Social Determinants Patient?s care significantly limited by Social Determinants of Health including: Inadequate housing, Low income, Problems related to primary support group and Other Social Determinant of Health Discharge Plan Discharge Clinical Impression: Rectal bleeding, Auditory hallucinations Patient Disposition: Home, Self-Care Instructions: Rectal Bleeding (ED), Hallucinations (ED) Additional Instructions: Your blood work, urine, viral testing were all reassuring Please have close follow up with her primary care providers Continue home prescribed medications Admission was offered to our facility however you declined. You are always welcome to return Prescriptions: No Action multivitamin Tablet 1 tab PO DAILY divalproex [Depakote] 250 mg Tablet,Delayed Release (Dr/Ec) 250 mg PO BID olanzapine 10 mg Tablet 10 mg PO DAILY fluconazole [Diflucan] 150 mg tablet 150 mg PO ONCE Qty: 1 0RF Rx Instructions: take on FridayOctober 01 ibuprofen 600 mg tablet 600 mg PO Q8H PRN (Reason: pain) Qty: 10 0RF amoxicillin-pot clavulanate [Augmentin] 500-125 mg tablet 1 tab PO BID Qty: 10 0RF penicillin V potassium 500 mg tablet 500 mg PO Q12H 10 Days Qty: 20 0RF divalproex [Depakote] 250 mg tablet,delayed release (DR/EC) 250 mg PO BID Qty: 60 0RF divalproex [Depakote] 250 mg tablet,delayed release (DR/EC) 250 mg PO BID Qty: 60 0RF penicillin V potassium 500 mg tablet 500 mg PO Q12H 10 Days Qty: 20 0RF ciprofloxacin HCl [Cipro] 500 mg tablet 500 mg PO BID 14 Days Qty: 28 0RF ciprofloxacin HCl [Cipro] 500 mg tablet 500 mg PO Q12H 7 Days Qty: 14 0RF amoxicillin-pot clavulanate [Augmentin] 875-125 mg tablet 1 tab PO Q12H 7 Days Qty: 14 0RF phenazopyridine [Pyridium] 100 mg tablet 200 mg PO TID PRN (Reason: pain) Qty: 10 0RF divalproex [Depakote] 250 mg tablet,delayed release (DR/EC) 250 mg PO BID 30 Days Qty: 60 0RF cyclobenzaprine 10 mg tablet 10 mg PO TID PRN (Reason: muscle spasm) Qty: 14 0RF ibuprofen 600 mg tablet 600 mg PO Q8H PRN (Reason: pain) Qty: 14 0RF betamethasone dipropionate 0.05 % cream 1 appl topical BID PRN (Reason: skin irritation) 7 Days Qty: 15 0RF prednisone 20 mg tablet 40 mg PO DAILY 5 Days Qty: 10 0RF acetaminophen [Tylenol Extra Strength] 500 mg tablet 500 mg PO Q6H PRN (Reason: pain) Qty: 30 0RF lidocaine 5 % adhesive patch,medicated 1 patch topical DAILY Qty: 30 0RF Rx Instructions: leave on most painful area for up to 12 hrs amoxicillin-pot clavulanate 875-125 mg tablet 1 tab PO BID 7 Days Qty: 14 0RF cefuroxime axetil 250 mg tablet 250 mg PO BID 7 Days Qty: 14 0RF hydrocortisone acetate [Anusol-HC] 25 mg suppository [address] BID Qty: 12 0RF sucralfate 1 gram tablet 1 g PO TID Qty: 90 0RF diphenhydramine HCl [Benadryl] 25 mg capsule 25 mg PO TID PRN (Reason: itching) Qty: 30 0RF metronidazole 500 mg tablet 500 mg PO BID 7 Days Qty: 14 0RF ibuprofen 600 mg tablet 600 mg PO TID PRN (Reason: pain) Qty: 20 0RF ondansetron 4 mg tablet,disintegrating 4 mg PO Q8H PRN (Reason: nausea and vomiting) Qty: 20 0RF Referrals: [facility] [Outside] Bhumi Lopez MD [Primary Care Provider] - 5 days Stand Alone Forms: Work/School Release Print Language: Albanian
[2024-08-30 09:15] LABS: MANUAL DIFF FLAG NO
--- NOTE | 2024-08-30 09:15 | PC.NURSE ---
this RN resumed care of pt at 0845. pt currently sitting in stretcher conversating w/ herself. during assessment, pt seems to snap out of it and become completely alert and oriented, answering questions/follow commands appropriately. vss and up to date. lab work completed by tech. pt notified/aware urine specimen is needed. pt on RA w/o difficulty. no sob/wob noted. respirations even/unlabored. plan of care ongoing.
[2024-08-30 09:22] LABS: Basophils Absolute Auto 0.1 X10*3/uL (0.0-0.2); Basophils Percent Auto 0.5 % (0-2); Eosinophils Absolute Auto 0.4 X10*3/uL (0.0-0.4); Eosinophils Percent Auto 3.7 % (0-4); Hematocrit 36.9 % (37.0-47.0); Hemoglobin 12.8 g/dl (12.0-16.0); Imm Gran Abs Auto 0.02 X10*3/uL (0.00-0.03); Imm Gran Pct Auto 0.2 % (0.0-0.4); Lymphocytes Absolute Auto 3.9 X10*3/uL (1.2-4.9); Lymphocytes Percent Auto 37.7 % (20-40); Mean Corpuscular HGB Conc 34.7 g/dl (31.0-35.0); Mean Corpuscular Hemoglobin 30.5 pg (27.0-33.0); Mean Corpuscular Volume 88.1 fL (80.0-98.0); Mean Platelet Volume 10.4 fL (9.4-12.3); Monocytes Absolute Auto 1.1 X10*3/uL (0.1-1.2); Monocytes Percent Auto 10.7 % (2-11); Neutrophils Absolute Auto 4.9 x10*3/uL (2.0-8.3); Neutrophils Percent Auto 47.2 % (45-73); Platelet Count 279 X10*3/uL (160-400); Red Blood Count 4.19 X10*6/uL (4.20-5.50); Red Cell Distribution Width 14.4 % (11.0-16.0); White Blood Count 10.3 X10*3/uL (4.8-10.8)
[2024-08-30 09:36] LABS: Alanine Aminotransferase 44 U/L (0-31); Albumin Level 4.3 g/dL (3.5-5.0); Alkaline Phosphatase 71 U/L (39-117); Anion Gap 16 (12-20); Aspartate Amino Transferase 27 U/L (5-31); Bilirubin Direct < 0.2 mg/dL (0.0-0.5); Bilirubin Total 0.2 mg/dL (0.0-1.0); Blood Urea Nitrogen 15 mg/dL (9-16); Calcium 9.6 mg/dL (8.4-10.2); Carbon Dioxide 26 mmol/L (22-29); Chloride 106 mmol/L (96-108); Creatinine Clr Calc Pharmacy 100.5; Estimated Glomerular Filt Rate > 60; Glucose Random 84 mg/dL (60-115); Lipase 30 U/L (8-78); Magnesium 1.7 mg/dL (1.6-2.6); Sodium 144 mmol/L (135-145); Total Protein 7.4 g/dL (6.5-8.0)
[2024-08-30 10:04] LABS: Influenza A PCR NEGATIVE (Negative); Influenza B PCR NEGATIVE (Negative); Resp Syncy Virus RNA Qual PCR NEGATIVE (Negative); SARS COV2 PCR INHOUSE NEGATIVE (Negative)
--- NOTE | 2024-08-30 10:46 | PC.NURSE ---
pt attempted to use to the restroom to obtain urine specimen but was unable to. strong/steady gait noted throughout ambulation. pt assisted back into bed. repositioned to comfort. plan of care ongoing.
[2024-08-30 12:10] LABS: UPreg QC Valid YES; Urine Pregnancy NEGATIVE (NEGATIVE)
[2024-08-30 12:14] LABS: Appearance Urine Clear; Color Urine Yellow; Glucose Urine UA Negative (Negative); Leukocyte Esterase Urine Negative (Negative); Nitrite Urine Negative (Negative); Specific Gravity - Urine >= 1.030 (1.005-1.025); Urine Blood Negative (Negative); Urine Ketones Negative (Negative); Urine Protein Negative (Neg-Trace)
[2024-08-30 12:17] VITALS: BP 114/60; PULSE 82; RESP 16; TEMP 36.8; O2SAT 97
--- NOTE | 2024-08-30 12:17 | PC.NURSE ---
urine specimen obtained/sent to lab.
[2024-08-30 12:25] LABS: Amphetamine Screen Urine Not Detected (Not Detect); Barbiturates, Urine Not Detected (Not Detect); Benzodiazepines Screen Urine Not Detected (Not Detect); Buprenorphine Scr Not Detected (Not Detect); Cannabinoid Screen Urine POSITIVE (Not Detect); Cocaine Screen Urine POSITIVE (Not Detect); Fentanyl, urine Not Detected (Not Detect); Methadone Screen, Urine Not Detected (Not Detect); Opiate Screen Urine Not Detected (Not Detect); Oxycodone Screen Urine Not Detected (Not Detect); Phencyclidine Screen Urine Not Detected (Not Detect)
--- NOTE | 2024-08-30 12:36 | PC.NURSE ---
pt continues to pace back and forth conversating with herself. when spoken to, pt answers questions/follows commands appropriately. provider notified/aware that sx continue to increase at this time.
--- NOTE | 2024-08-30 12:59 | PC.NURSE ---
pt speaking w/ care team at this time.
[2024-08-30 14:21] VITALS: BP 101/64; PULSE 86; RESP 16; O2SAT 98
[2024-08-30 14:34] VITALS: BP 101/64; PULSE 86; RESP 16; TEMP 36.8; O2SAT 98
--- NOTE | 2024-08-30 14:37 | MHC.CARE ---
Patient evaluated by the CARE Team, she does not require an inpatient psychiatric admission at this time. ED provider KAYLEE Trent updated and in agreement with plan to discharge.
== END 2024-08-30 14:42 | disposition home or self-care (01) ==
PROVIDERS: Physician Assistant; Emergency Provider Emergency Medicine Emergency Medical Services; PCP Family Medicine
DX: K62.5 Hemorrhage of anus and rectum (principal); R05.9 Cough, unspecified; R44.0 Auditory hallucinations; R06.02 Shortness of breath; Z03.818 Encounter for observation for suspected exposure to other biological agents ruled out; Z51.81 Encounter for therapeutic drug level monitoring; Z79.899 Other long term (current) drug therapy
CPT/HCPCS: 0241U; 80048; 80076; 80307; 81003; 81025; 82272; 83690; 83735; 85025; 93005; 99284; S9485

== ENCOUNTER → 2024-08-30 04:32 | Outpatient (BNV) | payer MEDICAID, SELFPAY | PROVIDERS: Emergency Provider Emergency Medicine Emergency Medical Services; PCP Family Medicine; Visit Provider Internal Medicine Cardiovascular Disease | DX: R06.02 Shortness of breath (principal); R05.9 Cough, unspecified | CPT/HCPCS: 93010 ==

== ENCOUNTER 2024-08-30 21:41 | Emergency (ER) | payer MEDICAID, SELFPAY ==
[2024-08-30 21:42] VITALS: BP 129/65; PULSE 76; RESP 18; TEMP 36.6; O2SAT 100; BMI 29.6
--- NOTE | 2024-08-30 22:06 | PC.NURSE ---
Pt sitting in pit chair outside of triage- noted to be having full conversation with self with no one else present.
--- NOTE | 2024-08-30 22:33 | ED_ITS ---
HPI - Psych General Chief Complaint: Psychiatric Symptoms Stated Complaint: crisis / came earlier today was D/C Source: patient and old records reviewed Mode of arrival: ambulatory Limitations: no limitations History of Present Illness ED Provider: EMILY SWANN Narrative: 44 yo female with PMH of bipolar ?med compliance who denies drug use was seen and cleared by CARE team today. She reported back to her long-term and states when she left at 1437 they did not let her back in the long-term. She denies SI/HI. She is responding to internal stimuli. She states she needs medications and to get her head right. No falls or medical complaints at this time. MD complaint: anxiety and other Onset (ago): week(s) Duration: intermittent History of same: Yes Relieving factors: none Exacerbating factors: other Context: not taking psychiatric medications Associated psychiatric symptoms: depression Associated symptoms: denies other symptoms Treatments prior to arrival: none Related Data Previous Rx's ?Medication ?Instructions ?Recorded ibuprofen 600 mg tablet 600 mg PO Q8H PRN pain #14 tabs 01/08/23 acetaminophen 500 mg tablet 500 mg PO Q6H PRN pain #30 tabs 08/17/24 (Tylenol Extra Strength) Allergies Allergy/AdvReac Type Severity Reaction Status Date / Time No Known Allergies Allergy Verified 08/30/24 21:42 [No Known Allergies*] Review of Systems 2 Review of Systems: Constitutional : No Fever, No Chills ENT/Mouth : No Ear Pain, No Nasal Congestion, No sore throat Eyes: No Eye Pain, No Swelling, No Redness Cardiovascular : No Chest Pain, No SOB Respiratory : No Cough, No Sputum, No Dyspnea Gastrointestinal : No Nausea, No Vomiting, No Diarrhea, No Hematochezia, No Melena Genitourinary : No Dysuria, No Urinary Frequency, No Hematuria Musculoskeletal : No Myalgias Skin : No Skin Lesions, No rash Neuro : No Weakness, No Numbness, No Paresthesias, No Dizziness, No Headache Psych : positive Anxiety, positive Depression, no SI/HI All other systems reviewed and are negative [facility] Past Medical History Attestation statement: The following information was validated with the patient. Source: old records reviewed Medical History Bipolar 1 disorder Social History Social History (Updated 08/30/24 @ 22:34 by Laureen Philip DO) Alcohol intake: never Patient Tobacco Use Status: Tobacco use Unknown Smoked in Last 30 Days: No Advance Directives: No Advance Directives Information Provided: No Do you have a plan to hurt others: No Plan Patient : No Physical Exam 2 Vital Signs: Vital Signs: Last Vital Signs Temp 98.5 F 08/31/24 09:14 Pulse 82 08/31/24 09:14 Resp 16 08/31/24 09:14 BP 116/70 08/31/24 09:14 Pulse Ox 98 08/31/24 09:14 O2 Del Method Room Air 08/31/24 09:14 BMI result Body Mass Index 29.6 Appearance: Alert. Oriented X3. No acute distress. responding to internal stimuli at this time Eyes: Pupils equal, round and reactive to light. ENT: Pharynx normal. Neck: Normal inspection. Neck supple. CVS: Normal heart rate and rhythm. Pulses normal. Respiratory: No respiratory distress. Breath sounds normal. Abdomen: Soft and nontender. Skin: Skin warm and dry. Normal skin color. Normal skin turgor. Extremities: No lower extremity edema. No calf ttp Neuro: Oriented X 3. No motor deficit. No sensory deficit. CN2-12 intact Course Course Course Narrative: Time: 06:36 Date: 08/31/24 Provider: Laureen Philip DO Patient in physician observation for psychiatric evaluation.? No acute events reported overnight. No current complaints. VS stable.? Likely plan for respite today per CARE team. Will continue to monitor. Reevaluation(s) Reevaluation #1: Time: 09:09 Date: 08/31/24 Provider: Mino Crawford MD Patient in physician observation for psychiatric evaluation.? No acute events reported overnight. No current complaints. VS stable.? seen by crisis cleared for d/c this ends physician observation. Time: 09:09 Medical Decision Making Medical Decision Making MDM Narrative: 44 yo female with PMH of bipolar here with c/o responding to internal stimuli and needing to go inpatient to get her mind right. She denies trauma, medical complaints and has no SI/HI. Will monitor her and have CARE team reassess. Differential Diagnosis Differential Diagnoses: The differential diagnosis associated with the presentation includes drug use, bipolar d/o, noncompliance Admission/Observation Consideration of admission/observation: Escalation of care including admission/observation considered physician observation started at 1038pm pending CARE team Consult Healthcare Provider Management of the patient was discussed with: Behavioral Health Provider plan for respite tomorrow per CARE team Lab Data MDM Lab Attestation statement: I reviewed the patient's lab results. 08/30/24 22:47 08/30/24 22:47 Labs: Lab Results 08/30/24 08/30/24 Range/Units 22:47 22:50 WBC 12.5 H (4.8-10.8) X10*3/uL RBC 4.16 L (4.20-5.50) X10*6/uL Hgb 12.4 (12.0-16.0) g/dl Hct 36.1 L (37.0-47.0) % MCV 86.8 (80.0-98.0) fL MCH 29.8 (27.0-33.0) pg MCHC 34.3 (31.0-35.0) g/dl RDW 14.1 (11.0-16.0) % Plt Count 271 (160-400) X10*3/uL MPV 10.5 (9.4-12.3) fL Immature Gran % (Auto) 0.3 (0.0-0.4) % Neut % (Auto) 47.5 (45-73) % Lymph % (Auto) 39.6 (20-40) % [place] % (Auto) 8.8 (2-11) % Eos % (Auto) 3.4 (0-4) % Baso % (Auto) 0.4 (0-2) % Lymph # (Auto) 4.9 (1.2-4.9) X10*3/uL [place] # (Auto) 1.1 (0.1-1.2) X10*3/uL Eos # (Auto) 0.4 (0.0-0.4) X10*3/uL Baso # (Auto) 0.1 (0.0-0.2) X10*3/uL Abs Immat Gran (auto) 0.04 H (0.00-0.03) X10*3/uL Absolute Neuts (auto) 5.9 (2.0-8.3) x10*3/uL Absolute Nucleated RBC 0.000 (0.0-0.012) X10*3/uL Nucleated RBC % (auto) 0.0 (0.0-0.2) /100WBC Sodium 140 (135-145) mmol/L Potassium 3.5 (3.3-5.1) mmol/L Chloride 103 (96-108) mmol/L Carbon Dioxide 23 (22-29) mmol/L Anion Gap 18 (12-20) BUN 17 H (9-16) mg/dL Creatinine 0.69 (0.5-1.4) mg/dL Estim Creat Clear Calc 99.6 Estimated GFR > 60 Random Glucose 99 (60-115) mg/dL Calcium 9.5 (8.4-10.2) mg/dL Total Bilirubin 0.3 (0.0-1.0) mg/dL AST 29 (5-31) U/L ALT 35 H (0-31) U/L Alkaline Phosphatase 64 (39-117) U/L Total Protein 7.4 (6.5-8.0) g/dL Albumin 4.5 (3.5-5.0) g/dL Urine Color Yellow Urine Appearance Clear Urine pH 5.5 (5.0-9.0) Ur Specific [place] 1.025 (1.005-1.025) Urine Protein Negative (Neg-Trace) mg/dL Urine Glucose (UA) Negative (Negative) mg/dL Urine Ketones Negative (Negative) mg/dL Urine Blood Negative (Negative) Urine Nitrite Negative (Negative) Ur Leukocyte Esterase Negative (Negative) Urine Opiates Screen Not Detected (Not Detect) Ur Buprenorphine Scrn Not Detected (Not Detect) ng/mL Ur Oxycodone Screen Not Detected (Not Detect) ng/mL Urine Methadone Screen Not Detected (Not Detect) ng/mL Urine Fentanyl Screen Not Detected (Not Detect) Ur Barbiturates Screen Not Detected (Not Detect) Valproic Acid < 12.5 L (50.0-100.0) mcg/mL Ur Phencyclidine Scrn Not Detected (Not Detect) Ur Amphetamines Screen Not Detected (Not Detect) U Benzodiazepines Scrn Not Detected (Not Detect) Urine Cocaine Screen POSITIVE H (Not Detect) U Marijuana (THC) Screen POSITIVE H (Not Detect) Ethyl Alcohol < 10 mg/dL External Record Review External record reviewed: Outpatient record Social Determinants Patient?s care significantly limited by Social Determinants of Health including: Inadequate housing, Problems related to primary support group and Unemployment Discharge Plan Discharge Clinical Impression: Bipolar disorder, Cocaine abuse Patient Disposition: Home, Self-Care Instructions: Cocaine Abuse (ED), Bipolar Disorder (ED) Additional Instructions: You were seen in our Emergency Department today for treatment of a behavioral health issue. It is important after your visit that you follow up with either your behavioral health provider or a primary care doctor within 7 days.? If you have trouble finding a therapist you can reach out to [address] [phone] [facility] can be reached 7 days a week 24 hours a day.? Call [phone] to speak with someone.? Return for any worsening symptoms or concerns such as thoughts of self harm or harm to others. Please call 911 if you feel your mental health is worsening.? Prescriptions: No Action ibuprofen 600 mg tablet 600 mg PO Q8H PRN (Reason: pain) Qty: 14 0RF acetaminophen [Tylenol Extra Strength] 500 mg tablet 500 mg PO Q6H PRN (Reason: pain) Qty: 30 0RF Referrals: Bhumi Lopez MD [Primary Care Provider] - 2 days Interventions: [place]-Suicide Risk Severity Scale Last Done: 08/30/24 22:52 ED Discharge Assessment Last Done: 08/31/24 09:14 Discharge Date/Time: 08/31/24 09:31 Print Language: Occitan
[2024-08-30 23:06] LABS: MANUAL DIFF FLAG NO
[2024-08-30 23:08] LABS: Basophils Absolute Auto 0.1 X10*3/uL (0.0-0.2); Basophils Percent Auto 0.4 % (0-2); Eosinophils Absolute Auto 0.4 X10*3/uL (0.0-0.4); Eosinophils Percent Auto 3.4 % (0-4); Hematocrit 36.1 % (37.0-47.0); Hemoglobin 12.4 g/dl (12.0-16.0); Imm Gran Abs Auto 0.04 X10*3/uL (0.00-0.03); Imm Gran Pct Auto 0.3 % (0.0-0.4); Lymphocytes Absolute Auto 4.9 X10*3/uL (1.2-4.9); Lymphocytes Percent Auto 39.6 % (20-40); Mean Corpuscular HGB Conc 34.3 g/dl (31.0-35.0); Mean Corpuscular Hemoglobin 29.8 pg (27.0-33.0); Mean Corpuscular Volume 86.8 fL (80.0-98.0); Mean Platelet Volume 10.5 fL (9.4-12.3); Monocytes Absolute Auto 1.1 X10*3/uL (0.1-1.2); Monocytes Percent Auto 8.8 % (2-11); Neutrophils Absolute Auto 5.9 x10*3/uL (2.0-8.3); Neutrophils Percent Auto 47.5 % (45-73); Platelet Count 271 X10*3/uL (160-400); Red Blood Count 4.16 X10*6/uL (4.20-5.50); Red Cell Distribution Width 14.1 % (11.0-16.0); White Blood Count 12.5 X10*3/uL (4.8-10.8)
[2024-08-30 23:10] LABS: Appearance Urine Clear; Color Urine Yellow; Glucose Urine UA Negative (Negative); Leukocyte Esterase Urine Negative (Negative); Nitrite Urine Negative (Negative); PH 5.5 (5.0-9.0); Specific Gravity - Urine 1.025 (1.005-1.025); Urine Blood Negative (Negative); Urine Ketones Negative (Negative); Urine Protein Negative (Neg-Trace)
[2024-08-30 23:20] LABS: Amphetamine Screen Urine Not Detected (Not Detect); Barbiturates, Urine Not Detected (Not Detect); Benzodiazepines Screen Urine Not Detected (Not Detect); Buprenorphine Scr Not Detected (Not Detect); Cannabinoid Screen Urine POSITIVE (Not Detect); Cocaine Screen Urine POSITIVE (Not Detect); Fentanyl, urine Not Detected (Not Detect); Methadone Screen, Urine Not Detected (Not Detect); Opiate Screen Urine Not Detected (Not Detect); Oxycodone Screen Urine Not Detected (Not Detect); Phencyclidine Screen Urine Not Detected (Not Detect)
[2024-08-30 23:22] LABS: Alanine Aminotransferase 35 U/L (0-31); Albumin Level 4.5 g/dL (3.5-5.0); Alkaline Phosphatase 64 U/L (39-117); Anion Gap 18 (12-20); Aspartate Amino Transferase 29 U/L (5-31); Bilirubin Total 0.3 mg/dL (0.0-1.0); Blood Urea Nitrogen 17 mg/dL (9-16); Calcium 9.5 mg/dL (8.4-10.2); Carbon Dioxide 23 mmol/L (22-29); Chloride 103 mmol/L (96-108); Creatinine Clr Calc Pharmacy 99.6; Estimated Glomerular Filt Rate > 60; Ethanol < 10 mg/dL; Glucose Random 99 mg/dL (60-115); Potassium 3.5 mmol/L (3.3-5.1); Sodium 140 mmol/L (135-145); Total Protein 7.4 g/dL (6.5-8.0); Valproate < 12.5 mcg/mL (50.0-100.0)
[2024-08-31 06:32] VITALS: BP 97/60; PULSE 71; RESP 16; TEMP 37.2; O2SAT 96
--- NOTE | 2024-08-31 07:39 | PC.NURSE ---
ASSUMED CARE OF PT AT 0645. RESTING COMFORTABLY AT THIS TIME. NO ACUTE CONCERNS. CONTINUE RESPITE BED SEARCH.
[2024-08-31 09:14] VITALS: BP 116/70; PULSE 82; RESP 16; TEMP 36.9; O2SAT 98
--- NOTE | 2024-08-31 09:26 | MHC.CARE ---
Pt denies SI, HI, and A/V/H. There are no ACCS beds and Pt does not meet a higher level of care at this time. Pt will be discharged, Provider in agreement.
== END 2024-08-31 09:31 | disposition home or self-care (01) ==
PROVIDERS: Emergency Provider Emergency Medicine; PCP Family Medicine
DX: F31.9 Bipolar disorder, unspecified (principal); F14.10 Cocaine abuse, uncomplicated; F41.9 Anxiety disorder, unspecified; Z51.81 Encounter for therapeutic drug level monitoring; Z79.899 Other long term (current) drug therapy
CPT/HCPCS: 36415; 80053; 80164; 80307; 81003; 85025; 99284; 99285; S9485

== ENCOUNTER 2024-10-25 11:40 | Outpatient (REF) | payer MEDICAID, SELFPAY ==
[2024-10-26 13:22] LABS: Bacterial Vaginosis PCR NEGATIVE (Negative); Candida Group PCR NOT DETECTED (Not Detect); Candida glab krusei PCR NOT DETECTED (Not Detect); Trichomonas vaginalis PCR NOT DETECTED (Not Detect)
== END 2024-10-25 11:41 | disposition home or self-care (01) ==
LOC: HO.HHCLNP 11:40
PROVIDERS: Visit Provider Nurse Practitioner
DX: N89.8 Other specified noninflammatory disorders of vagina (principal)
CPT/HCPCS: 81515

== ENCOUNTER 2024-11-15 13:53 | Outpatient (REF) | payer MEDICAID, SELFPAY ==
--- OUTSIDE RECORDS SUMMARY | 2024-11-15 15:08 | XMS_ITS | Encounter Summary ---
Author Organization [employer] Address [address] [place] [address] Care Team Providers Care Integrity Assessor Name Role Phone Aaron Duffy MD Primary Care Provider [phone] Bhumi Lopez MD Primary Care Provider Aaron Duffy MD Unavailable [phone] Pcp, [facility] Only Unassigned Primary Care Provider Unavailable Provider, Not In System Primary Care Provider Un available Landy López NP Primary Care Provider [phone] Reason for Visit * Reason Comments Med Refill Encounter Details Date Type Department Care Team (Late st Contact Info) Description 04/15/2023 Refill [facility] [address], [place] [id number] Name, MD Salvador [address] [place] [address] Mood disorder (CMS/HCC); Herpes labialis Social History [...] PM EDT documented as of this encounter Functional Status * Over the past 2 weeks, how often have you been bothered by any of the following problems? Question Answer Date of Assessment Author Patient Health Questionnaire-2 Score 2 04/04 1:03 PM Aj Andersen [place] * If you checked off any problems on this questionnaire so far, Question Answer Date of Assessment Author How difficult have these problems made it for you to do your work, take care of things at home, or get along with other people? Somewhat difficult 04/17/2023 1:03 PM Aj Andersen M A * Over the last 2 weeks, how often have you been bothered by any of the following problems? Question Answer Date of Assessment Author Feeling nervous, anxious, or on edge 1 04/04 2:04 PM Toshia Jones Not being able to stop or co ntrol worrying 3 04/17/2023 2:04 PM Toshia Jones Worrying too much about diff erent things 3 04/17/2023 2:04 PM Toshia Jones Trouble relaxing 0 04/17/2023 2:04 PM EST Toshia Hameed Being so restless that it is hard to sit still 1 04/17/2023 2:04 PM Toshia Jones Becoming easily annoyed or irritable 0 04/04 2:04 PM Toshia Jones Feeling afraid as if somethi ng awful might happen 1 04/17/2023 2:04 PM Toshia Jones PEDRO-7 Total Score 9 04/17/2023 2:04 PM Toshia Jones * Over the past 2 weeks, how often have you been bothered by any of the following problems? Question Answer Date of Assessment Author Little interest or pleasure in doing things Several days 04/17/2023 1:03 PM Aj Andersen M A Feeling down, depressed, or hopeless Several days 04/17/2023 1:03 PM Aj Andersen M A Trouble falling or staying asleep, or sleeping too much Several days 04/17/2023 1:03 PM Aj Andersen [place] Feeling tired or having claudia le energy Several days 04/17/2023 1:03 PM Aj Andersen M A Poor appetite or overeating Several days 04/17/2023 1: 03 PM Aj Andersen [place] Feeling bad about yourself - or that you are a failure or have let yourself or your family down Not at all 04/17/2023 1:03 PM Aj Andersen M A Trouble concentrating on things, such as reading the newspaper or watching television Not at all 04/17/2023 1:03 PM Aj Andersen M A Moving or speaking so slowly that other people could have noticed? Or the opposite - being so fidgety or restless that you have been moving around a lot more than usual. Not at all 04/17/2023 1:03 PM Aj Andersen MA Thoughts that you would be better off or hurting yourself in some way Not at all 04/17/2023 1:03 PM Aj Andersen [place] Patient Health Questionnaire -9 Score 5 04/17/2023 1:03 PM Aj Andersen M A documented as of this encounter Plan of Treatment Upcoming Encounters Date Type Department Care Team (Late st Contact Info) Description 11/26/2024 9:00 AM EDT Office Visit [facility] [address] [place] [address] Landy López NP [address] [place] [address] documented as of this encounter Visit Diagnoses Diagnosis Mood disorder (CMS/HCC) Unspecified episodic mood disorder Herpes labialis Herpes simplex without mention of complication documented in this encounter Care Teams Integrity Assessor Relationship Specialty Start Date End Date Aaron Duffy MD PCP - General Internal Medicine 01/30/23 04/16/23 Bhumi Lopez MD [address] [place] [address] PCP - General Family Medicine 04/17/23 01/05/[address] [facility] Only Unassigned PCP - General Family Medicine 01/06/24 08/03/24 Provider, Not In System PCP - General Family Medicine 08/04/24 10/14/24 Landy López NP [address] [place] [address] PCP - General Family Medicine 10/15/24 Aaron Duffy MD Internal Medicine 04/17/23 10/27/[address] Housing Mortgage Loan Closer 04/17/23 [facility] [address] [facility], [address] [place] [id number] 01/06/24 08/03/24 documented as of this encounter
[2024-11-15 16:48] LABS: MANUAL DIFF FLAG NO
[2024-11-15 17:00] LABS: Hematocrit 36.6 % (37.0-47.0); Hemoglobin 12.4 g/dl (12.0-16.0); Imm Gran Abs Auto 0.02 X10*3/uL (0.00-0.03); Imm Gran Pct Auto 0.2 % (0.0-0.4); Lymphocytes Absolute Auto 2.8 X10*3/uL (1.2-4.9); Mean Corpuscular HGB Conc 33.9 g/dl (31.0-35.0); Mean Corpuscular Hemoglobin 30.0 pg (27.0-33.0); Mean Corpuscular Volume 88.4 fL (80.0-98.0); NRBC Abs Auto 0.000 X10*3/uL (0.0-0.012); NRBC Pct Auto 0.0 /100WBC (0.0-0.2); Platelet Count 259 X10*3/uL (160-400); Red Blood Count 4.14 X10*6/uL (4.20-5.50); White Blood Count 9.1 X10*3/uL (4.8-10.8)
[2024-11-15 17:13] LABS: Hemoglobin A1C 120.7310 umol/L; Total Hemoglobin (HGBA1C) 3305.8014 umol/L
[2024-11-15 17:33] LABS: Alanine Aminotransferase 33 U/L (0-31); Albumin Level 4.7 g/dL (3.5-5.0); Alkaline Phosphatase 51 U/L (39-117); Anion Gap 13 (12-20); Aspartate Amino Transferase 28 U/L (5-31); Blood Urea Nitrogen 13 mg/dL (9-16); Calcium 9.9 mg/dL (8.4-10.2); Carbon Dioxide 27 mmol/L (22-29); Chloride 104 mmol/L (96-108); Cholesterol 194 mg/dL (<200); Estimated Glomerular Filt Rate > 60; HDL Cholesterol 69 mg/dL (>40); Potassium 4.4 mmol/L (3.3-5.1); Sodium 140 mmol/L (135-145); Total Protein 7.4 g/dL (6.5-8.0); Triglycerides 84 mg/dL (<150)
== END 2024-11-15 13:54 | disposition home or self-care (01) ==
LOC: HO.HHCL 13:53
PROVIDERS: PCP Family Medicine
DX: Z00.00 Encounter for general adult medical examination without abnormal findings (principal)
CPT/HCPCS: 36415; 80053; 80061; 83036; 84443; 85025

== ENCOUNTER 2024-11-17 18:03 | Outpatient (REF) | payer MEDICAID, SELFPAY ==
[2024-11-19 22:28] LABS: C. trachomatis RNA TMA NOT DETECTED (NOT DETECTED); N. gonorrhoeae RNA TMA NOT DETECTED (NOT DETECTED); Trichomonas (NAAT) NOT DETECTED (NOT DETECTED)
== END 2024-11-17 18:04 | disposition home or self-care (01) ==
LOC: HO.HHCLNP 18:03
PROVIDERS: Visit Provider Advanced Practice Midwife
DX: Z12.4 Encounter for screening for malignant neoplasm of cervix (principal); Z11.3 Encounter for screening for infections with a predominantly sexual mode of transmission; R39.9 Unspecified symptoms and signs involving the genitourinary system; Z11.51 Encounter for screening for human papillomavirus (HPV)
CPT/HCPCS: 87086; 87491; 87591; 87626; 87661; 88175

== ENCOUNTER 2024-11-24 11:58 | Outpatient (REF) | payer MEDICAID, SELFPAY ==
[2024-11-24 20:16] LABS: Bacterial Vaginosis PCR NEGATIVE (Negative); Candida Group PCR NOT DETECTED (Not Detect); Candida glab krusei PCR NOT DETECTED (Not Detect); Trichomonas vaginalis PCR NOT DETECTED (Not Detect)
== END 2024-11-24 11:59 | disposition home or self-care (01) ==
LOC: HO.LNP 11:58
PROVIDERS: Visit Provider Advanced Practice Midwife
DX: N89.8 Other specified noninflammatory disorders of vagina (principal)
CPT/HCPCS: 81515